=== PATIENT | female | born 1950 | race Caucasian/White ===

== ENCOUNTER → 2016-08-12 | Outpatient (CLI) | payer OTHER, MEDICARE ==
--- NOTE | 2016-08-12 13:04 | MR ---
MRI of the Lumbar Spine (Without Contrast) Clinical Indications: Low back pain in a 66-year-old female with history of previous lumbar spinal abraham rgery. No previous studies are available for comparison. Technique: Sagittal and axial T1 and T2 MR sequences of the lumbar spine are performed without con trast. A sagittal STIR sequence was also obtained. Findings: There is straightening of the normal lumbar lordosis. Additionally, a moderate thoracolumb ar scoliotic curvature convex towards the right is estimated at 26 degrees. There is interbody fusion from L2 to L5. Rods and pedicle screws are positioned from L2 to L5. There has been a decompressive laminectomy posteriorly. Conus medullaris appears normal and ends at T12-L1. L1-L2: A diffuse disk bulge occurs in association with facet and ligamentous hypertrophy resulting in a central canal at the lower limits of normal in size. There is bilateral lateral recess stenosis. N eural foramina are difficult to evaluate secondary to artifact related to the pedicle screws. L2-L3 to L4-L5: Interbody fusion is seen. There is extensive decompressive laminectomy posteriorly. T he resulting canal is generous in size with no stenosis seen. No definite neural foraminal impingemen t is identified. L5-S1: A diffuse disk bulge is seen eccentric towards the right side where there may be an element of lateral protrusion. Hypertrophic facet changes are seen bilaterally and an element of neural foramin al impingement is suspected bilaterally. Right lateral recess stenosis is also suspected. Impression: 1. Lateral recess stenosis as well as right greater than left neural foraminal impingement suspected at L5-S1. Comparison with previous studies would be of value to assess for interval change. 2. Postoperative changes and posterior laminectomy with widely patent lumbar canal at the postoperati ve levels. 3. Diffuse disk bulge and bilateral lateral recess stenosis at L1-L2.
== END ==
LOC: FIMAGING 10:41
PROVIDERS: ATTEND Physical Medicine & Rehabilitation
DX: M48.06 Spinal stenosis, lumbar region (principal); M51.86 Other intervertebral disc disorders, lumbar region

== ENCOUNTER 2016-11-16 09:00 | Inpatient (IN) | payer OTHER, MEDICARE ==
--- NOTE | 2016-11-16 09:01 | EDPHY ---
H & P HPI/ROS: CHIEF COMPLAINT: Shortness of breath, abdominal pain. HISTORY OF PRESENT ILLNESS: The patient is a 66-year-old female with a history of asthma who arrives via EMS on CPAP with acute shortness of breath, back pain , and abdominal pain. She vomited earlier. She flew back from [place] yesterday. History limited. REVIEW OF SYSTEMS: Unobtainable due to patient's clinical condition. Source: Patient, EMS Exam Limitations: Clinical condition - Medical/Surgical History Other PMH: Asthma, spinal fusion, chronic back pain, GERD. - Social History Additional Social History: . - Physical Exam Exam: General Appearance: Heart rate 152, systolic blood pressure 80/9, respiratory rate 36, temperature 38.2. She is on CPAP. She appears severely ill and in distress. Eyes: Pupils equal and round, no conjunctival injection, anicteric. ENT, Mouth: Mucous membranes are dry, no oropharyngeal erythema or edema. Neck: No lymphadenopathy, supple. Trachea midline. Respiratory: No wheezes. Crackles at both bases. Cardiovascular: Tachycardic. Gastrointestinal: Abdomen is distended and diffusely tender. Skin: Skin is mottled throughout. Skin is cool. Pulses: Palpable radial, femoral, and dorsalis pedis pulses. Back: Nontender to palpation over the thoracolumbar spine. Extremities: Bilateral lower extremity edema. Neurological: She is awake and answering simple questions, albeit slowly. She will follow simple commands. Pupils are equal and round. Extraocular movements are conjugate. Facial expressions appear symmetric. Tongue is midline. Psychiatric: Normal affect. Constitutional: Initial Vital Signs Temperature (C) 38.2 C 11/16/16 09:11 Heart Rate 152 H 11/16/16 09:11 Respiratory Rate 32 H 11/16/16 09:11 Blood Pressure 89/76 L 11/16/16 09:11 O2 Delivery Mode Ventilator Allergies/Adverse Reactions: Penicillins Allergy (Verified 11/16/16 09:09) Home Medications: Medication Instructions Recorded Atorvastatin Calcium 11/16/16 Celecoxib 11/16/16 Cyclobenzaprine 11/16/16 FOLIC ACID 11/16/16 Hydrocodone Bit/Acetaminophen 11/16/16 Leucovorin 11/16/16 Prednisone 11/16/16 Xopenex 11/16/16 Zolpidem Tartrate 11/16/16 Medical Decision Making - Diagnostics Imaging Results: Imaging Impressions Abdomen X-Ray 11/16/16 09:18 Impression: 1. Suspect pneumoperitoneum. 2. Query mild adynamic ileus. Comment: The case was discussed with Dr. Arreola. Chest X-Ray 11/16/16 09:18 Impression: 1. Pneumoperitoneum. 2. Hypoventilation and bibasilar atelectasis, worse left than right. Comment: The case was discussed with Dr. Arreola and Dr. Newsome shortly after study completion. Abdomen/Pelvis CT 11/16/16 09:34 Impression: 1. Extensive free intraperitoneal air and fluid compatible with bowel perforation, of unclear origin. Two possible sites include the distal ileum, which is mildly thickened, and proximal jejunum, which is less prominently thickened. 2. Small bilateral pleural effusions with extensive atelectasis. 3. Patchy consolidation bilaterally, which could be related to pulmonary edema, atelectasis, or inflammation/infection. Attention is recommended on follow up radiographs. 4. Severe spinal canal narrowing with possible cord compression at T11-T12. 5. Additional findings as above. Note: The study is limited by the lack of IV contrast, particularly assessment of the solid organs. Findings discussed with Lars Arreola M.D. on November 16, [address] 11/16/16 09:34 Impression: 1. Extensive free intraperitoneal air and fluid compatible with bowel perforation, of unclear origin. Two possible sites include the distal ileum, which is mildly thickened, and proximal jejunum, which is less prominently thickened. 2. Small bilateral pleural effusions with extensive atelectasis. 3. Patchy consolidation bilaterally, which could be related to pulmonary edema, atelectasis, or inflammation/infection. Attention is recommended on follow up radiographs. 4. Severe spinal canal narrowing with possible cord compression at T11-T12. 5. Additional findings as above. Note: The study is limited by the lack of IV contrast, particularly assessment of the solid organs. Findings discussed with Lars Arreola M.D. on November 16, 2016 at 1000 hours. Procedures: Procedure: Rapid sequence intubation. Indication for the procedure was respiratory failure. The patient was preoxygenated with 100% oxygen by non-rebreather. The patient was given the following IV medications: 30mg IV Rocuronium and 20mg Etomidate. The patient was orally endotracheally intubated under direct visualization with a 7.0 ETT. In line stabilization was performed during the procedure. Tracheal intubation was confirmed with misting on the tube; breath sounds were auscultated equally bilaterally; appropriate color change with [place] [employer] CO2 detector. The procedure was performed by the anesthesiologist. ED Course/Re-evaluation: I met EMS on arrival and obtained a report from the steel division supervisor. Respiratory therapy at bedside. The patient arrives hypotensive at 89/76. Tachycardic at 156. She is complaining of acute shortness of breath, back pain, and diffuse abdominal pain. She is on CPAP on arrival. Her abdomen is notably distended. Two IVs were established. ISTAT obtained. Stat chest x-ray and abdominal flat plate ordered. IV fluids administered. My initial concern was for aortic dissection, either thoracic or intra- abdominal. This did not appear to be a primary respiratory issue. She has a history of asthma but there was no wheezing. She was on CPAP on arrival but this was discontinued and she continued with adequate oxygenation; she remained tachypneic. She had bilateral crackles at the bases and pneumonia was in the differential. I-STAT shows potassium of 6, BUN 67, creatinine 2. Hemoglobin and hematocrit are not decreased. Her hemoglobin and hematocrit make bleeding/ aortic dissection less likely. 0905: I performed a bedside FAST ultrasound but had some difficulty with visualization of intra-abdominal organs. I did not see right atrial enlargement or obvious evidence of PE. 0912: Consulted with Dr. Arreola, surgery. 0913: Portable chest x-ray taken and independently reviewed by me on the portable x-ray machine. There is free air under the right hemidiaphragm. I spoke to the on-call radiologist Dr. Barcenas. He concurs with the impression of free air. 0916: Dr. Arreola, surgery, at bedside evaluating patient. He will take the patient to the operating room when she is stabilized. Blood pressure 87/62 at this time. IV Levophed administered. Anesthesia at the bedside. Labs reviewed. Arterial blood gases been obtained. She is noted to be acidotic with a pH of 7.2. 0931: The anesthesiologist intubated the patient at this time (see procedure note for details). Blood pressure 63/37. Levophed increased. Domínguez catheter placed. Domínguez catheter placed. 0936: Dr. Arreola, surgery, placed central line. Blood pressure 101/78. Levophed infusion continues. Patient taken to CT for chest/abdomen imaging. IV contrast will not be used because of her elevated creatinine. She will be taken from CT to the operating room. Following intubation, with improvement in her blood pressure, she is noted to have less skin mottling. Throughout the resuscitation she has had palpable radial and femoral pulses. 1032: Consulted with Radiology concerning the patient's CT scan results. Critical Care Time: I, Dr. Allegra Newsome, personally spent a total of 45 minutes of critical care time including time spent obtaining a history, performing a physical exam, monitoring interventions, collecting and interpreting tests and in discussion with consultants. This does not include time spent performing procedures or physician instructional assistant time. - Data Points Laboratory Results: Laboratory Results 11/16/16 09:30 11/16/16 11:13 11/16/16 11/16/16 11/16/16 11:13 10:00 09:30 WBC 14.96 10^3/uL H 10^3/uL (3.80-9.50) RBC 4.90 10^6/uL 10^6/uL (4.18-5.33) Hgb 15.5 g/dL g/dL (12.6-16.3) POC Hgb Hct 46.5 % % (38.0-47.0) POC Hct MCV 94.9 fL fL (81.5-99.8) MCH 31.6 pg pg (27.9-34.1) MCHC 33.3 g/dL g/dL (32.4-36.7) RDW 16.6 % H % (11.5-15.2) Plt Count 248 10^3/uL 10^3/uL (150-400) MPV 12.1 fL H fL (8.7-11.7) Neut % (Auto) Not Reported Lymph % (Auto) Not Reported [place] % (Auto) Not Reported Eos % (Auto) Not Reported Baso % (Auto) Not Reported Nucleat RBC Rel Count 0.7 % H % (0.0-0.2) Absolute Neuts (auto) Not Reported Absolute Lymphs (auto) Not Reported Absolute Monos (auto) Not Reported Absolute Eos (auto) Not Reported Absolute Basos (auto) Not Reported Absolute Nucleated RBC 0.10 10^3/uL H 10^3/uL (0-0.01) Immature Gran % Not Reported Seg Neutrophils % 62 % % Band Neutrophils % 32 % % Lymphocytes % 2 % % Metamyelocytes % 3 % % Myelocytes % 1 % % Immature Gran # Not Reported Absolute Seg Neuts 9.28 10^/uL H 10^/uL (1.70-6.50) Absolute Band Neuts 4.79 10^3/uL H 10^3/uL (0.00-0.70) Absolute Lymphocytes 0.30 10^3/uL L 10^3/uL (1.00-3.00) Absolute Metamyelocyte 0.45 10^3/mL H 10^3/mL (0.00-0.00) Absolute Myelocytes 0.15 10^3/mL H 10^3/mL (0.00-0.00) Toxic Granulation PRESENT H Platelet Estimate ADEQUATE (ADEQ) Large Platelets PRESENT H Smear Review By Pending PT INR Puncture Site Patient Temperature pCO2 pO2 Total CO2 ABG pH ABG O2 Saturation ABG Base Excess POC Sodium Sodium 143 mEq/L mEq/L (134-144) POC Potassium Potassium 4.4 mEq/L mEq/L (3.5-5.2) POC Chloride Chloride 114 mEq/L H D mEq/L (97-110) Carbon Dioxide 17 mEq/l L mEq/l (22-31) Bicarbonate Anion Gap 12 mEq/L mEq/L (8-16) POC BUN BUN 52 mg/dL H mg/dL (7-23) Creatinine 1.5 mg/dL H mg/dL (0.6-1.0) POC Creatinine Estimated GFR 35 Glucose 81 mg/dL mg/dL (70-100) POC Glucose Calcium 8.4 mg/dL L mg/dL (8.5-10.4) Total Bilirubin 1.0 mg/dL mg/dL (0.1-1.4) Conjugated Bilirubin Unconjugated Bilirubin AST 42 IU/L IU/L (14-46) ALT 61 IU/L H IU/L (9-52) Alkaline Phosphatase 46 IU/L IU/L (38-126) Total Protein 3.5 g/dL L g/dL (6.3-8.2) Albumin 2.2 g/dL L g/dL (3.5-5.0) Lipase Urine Color MAGO Urine Appearance MODERATELY TURBID Urine pH 5.0 (5.0-7.5) Ur Specific [place] 1.026 (1.002-1.030) Urine Protein 1+ H (NEGATIVE) Urine Ketones NEGATIVE (NEGATIVE) Urine Blood NEGATIVE (NEGATIVE) Urine Nitrate NEGATIVE (NEGATIVE) Urine Bilirubin NEGATIVE (NEGATIVE) Urine Urobilinogen 2.0 EU H EU (0.2-1.0) Ur Leukocyte Esterase NEGATIVE (NEGATIVE) Urine RBC 3-5 /hpf H /hpf (0-3) Urine WBC 3-5 /hpf H /hpf (0-3) Ur Epithelial Cells TRACE /lpf /lpf (NONE-1+) Urine Bacteria TRACE /hpf H /hpf (NONE SEEN) Hyaline Casts 25-50 /lpf H /lpf (0-1) Granular Casts 1-5 /lpf /lpf (0-1) Urine Mucus 1+ /lpf /lpf (NONE-1+) Urine Glucose NEGATIVE (NEGATIVE) Patient ABO/Rh Antibody Screen 11/16/16 11/16/16 11/16/16 09:19 09:19 09:19 WBC RBC Hgb POC Hgb Hct POC Hct MCV MCH MCHC RDW Plt Count MPV Neut % (Auto) Lymph % (Auto) [place] % (Auto) Eos % (Auto) Baso % (Auto) Nucleat RBC Rel Count Absolute Neuts (auto) Absolute Lymphs (auto) Absolute Monos (auto) Absolute Eos (auto) Absolute Basos (auto) Absolute Nucleated RBC Immature Gran % Seg Neutrophils % Band Neutrophils % Lymphocytes % Metamyelocytes % Myelocytes % Immature Gran # Absolute Seg Neuts Absolute Band Neuts Absolute Lymphocytes Absolute Metamyelocyte Absolute Myelocytes Toxic Granulation Platelet Estimate Large Platelets Smear Review By PT 14.8 SEC SEC (12.0-15.0) INR 1.16 (0.83-1.16) Puncture Site Patient Temperature pCO2 pO2 Total CO2 ABG pH ABG O2 Saturation ABG Base Excess POC Sodium Sodium POC Potassium Potassium POC Chloride Chloride Carbon Dioxide Bicarbonate Anion Gap POC BUN BUN Creatinine POC Creatinine Estimated GFR Glucose POC Glucose Calcium Total Bilirubin 1.4 mg/dL mg/dL (0.1-1.4) Conjugated Bilirubin 0.8 mg/dL H mg/dL (0.0-0.5) Unconjugated Bilirubin 0.6 mg/dL mg/dL (0.0-1.1) AST 80 IU/L H IU/L (14-46) ALT 116 IU/L H IU/L (9-52) Alkaline Phosphatase 141 IU/L H IU/L (38-126) Total Protein 4.3 g/dL L g/dL (6.3-8.2) Albumin 2.3 g/dL L g/dL (3.5-5.0) Lipase 16.0 IU/L L IU/L (23-300) Urine Color Urine Appearance Urine pH Ur Specific [place] Urine Protein Urine Ketones Urine Blood Urine Nitrate Urine Bilirubin Urine Urobilinogen Ur Leukocyte Esterase Urine RBC Urine WBC Ur Epithelial Cells Urine Bacteria Hyaline Casts Granular Casts Urine Mucus Urine Glucose Patient ABO/Rh A POSITIVE Antibody Screen NEGATIVE 11/16/16 11/16/16 11/16/16 09:19 09:15 09:03 WBC RBC Hgb POC Hgb 16.7 gm/dL H gm/dL (12.3-15.9) Hct POC Hct 49 % H % (35.5-47.5) MCV MCH MCHC RDW Plt Count MPV Neut % (Auto) Lymph % (Auto) [place] % (Auto) Eos % (Auto) Baso % (Auto) Nucleat RBC Rel Count Absolute Neuts (auto) Absolute Lymphs (auto) Absolute Monos (auto) Absolute Eos (auto) Absolute Basos (auto) Absolute Nucleated RBC Immature Gran % Seg Neutrophils % Band Neutrophils % Lymphocytes % Metamyelocytes % Myelocytes % Immature Gran # Absolute Seg Neuts Absolute Band Neuts Absolute Lymphocytes Absolute Metamyelocyte Absolute Myelocytes Toxic Granulation Platelet Estimate Large Platelets Smear Review By PT INR Puncture Site LEFT RADIAL Patient Temperature 38.2 DEGREES DEGREES pCO2 26 mmHg L mmHg (34-38) pO2 103 mmHg H mmHg (65-75) Total CO2 13 mEq/L L mEq/L (23-27) ABG pH 7.29 L (7.35-7.45) ABG O2 Saturation 95 % % (92-95) ABG Base Excess -12.5 mEq/L L mEq/L (-2.5-2.5) POC Sodium 138 mEq/L mEq/L (134-144) Sodium 136 mEq/L mEq/L (134-144) POC Potassium 6.0 mEq/L H mEq/L (3.3-5.0) Potassium 6.1 mEq/L H mEq/L (3.5-5.2) POC Chloride 105 mEq/L mEq/L (96-108) Chloride 103 mEq/L mEq/L (97-110) Carbon Dioxide 18 mEq/l L mEq/l (22-31) Bicarbonate 12 mEq/L L mEq/L (22-26) Anion Gap 15 mEq/L mEq/L (8-16) POC BUN 67 mg/dL H mg/dL (7-23) BUN 66 mg/dL H mg/dL (7-23) Creatinine 1.9 mg/dL H mg/dL (0.6-1.0) POC Creatinine 2.0 mg/dL H mg/dL (0.6-1.2) Estimated GFR 26 Glucose 148 mg/dL H mg/dL (70-100) POC Glucose 161 mg/dL H mg/dL (70-100) Calcium 8.9 mg/dL mg/dL (8.5-10.4) Total Bilirubin Conjugated Bilirubin Unconjugated Bilirubin AST ALT Alkaline Phosphatase Total Protein Albumin Lipase Urine Color Urine Appearance Urine pH Ur Specific [place] Urine Protein Urine Ketones Urine Blood Urine Nitrate Urine Bilirubin Urine Urobilinogen Ur Leukocyte Esterase Urine RBC Urine WBC Ur Epithelial Cells Urine Bacteria Hyaline Casts Granular Casts Urine Mucus Urine Glucose Patient ABO/Rh Antibody Screen Microbiology Results: MICROBIOLOGY 11/16/16 10:13 Peritoneal Fluid - Eswab Gram Stain - Final 11/16/16 10:13 Peritoneal Fluid - Eswab Mycobacterial Smear (TANIA) - Final 11/16/16 10:13 Peritoneal Fluid - Eswab Mycobacterial Culture - Final Medications Given: Discontinued Medications Etomidate (Etomidate) 20 mg IVP EDNOW ONE Stop: 11/16/16 10:00 Last Admin: 11/16/16 09:31 Dose: 20 mg Fentanyl (Sublimaze) 100 mcg IVP ONCE ONE Stop: 11/16/16 10:05 Last Admin: 11/16/16 10:24 Dose: Not Given Sodium Chloride (Ns) 1,000 mls @ 0 mls/hr IV ONCE ONE PRN Reason: Wide Open Stop: 11/16/16 10:00 Last Admin: 11/16/16 09:59 Dose: 1,000 mls Sodium Chloride (Ns) 1,000 mls @ 0 mls/hr IV ONCE ONE PRN Reason: Wide Open Stop: 11/16/16 10:01 Last Admin: 11/16/16 10:00 Dose: 1,000 mls Norepinephrine 4 mg/ Dextrose 500 mls @ 0 mls/hr IV CONT TYREE; Titrate PRN Reason: Protocol Stop: 05/15/17 10:29 Last Admin: 11/16/16 09:50 Dose: 500 mls Clindamycin Phosphate/Dextrose (Cleocin 900 Mg (Premix)) 50 mls @ 100 mls/hr IV ONCE ONE Stop: 11/16/16 10:59 Last Admin: 11/16/16 14:22 Dose: Not Given Sodium Chloride (Ns) 1,000 mls @ 0 mls/hr IV ONCE ONE PRN Reason: Wide Open Stop: 11/16/16 14:31 Last Admin: 11/16/16 14:16 Dose: 1,000 mls Lorazepam (Ativan Injection) 0.5 mg IVP EDNOW ONE Stop: 11/16/16 10:05 Last Admin: 11/16/16 10:26 Dose: Not Given Lorazepam (Ativan Injection) 2 mg IVP EDNOW ONE Stop: 11/16/16 10:16 Last Admin: 11/16/16 10:15 Dose: 2 mg Rocuronium [place] (Zemuron) 30 mg IVP EDNOW ONE Stop: 11/16/16 10:00 Last Admin: 11/16/16 09:32 Dose: 30 mg Point of Care Test Results: 11/16/16 09:03 POC Sodium 138 POC Potassium 6.0 H POC Chloride 105 POC BUN 67 H POC Creatinine 2.0 H POC Glucose 161 H Departure - Departure Disposition: [facility] Acute Clinical Impression: Perforated abdominal viscus Condition: Critical Report Scribed for: Allegra Newsome Report Scribed by: Reinier Dunlap Date of Report: 11/16/16 Time of Report: 08:54
[2016-11-16] MEDS ORDERED: NOREPINEPHRINE/NS 4 MG/500 ML BAG IV ONE (09:22)
[2016-11-16] MEDS ORDERED: IOPAMIDOL (ISOVUE-300) 100 ML BTL IV ONE (09:24)
[2016-11-16] MEDS ORDERED: epHEDrine SULFATE 10 MG/ML SYR ONE (09:24)
[2016-11-16 09:25] LABS: BASE EXCESS -12.5 mEq/L (-2.5-2.5); BICARBONATE 12 mEq/L (22-26); MEASURED OXYGEN SATURATION 95 % (92-95); PCO2 26 mmHg (34-38); PO2 103 mmHg (65-75); TCO2 13 mEq/L (23-27)
[2016-11-16] MEDS ORDERED: BUPIVACAINE/EPI 0.25% 30 ML SDV ONE (09:30)
[2016-11-16] MEDS ORDERED: ALBUMIN 5% 250 ML BOTTLE IV ONE ×3 (09:34→10:58)
[2016-11-16] MEDS ORDERED: PROPOFOL/EMULSION 1,000 MG/100 ML BOTTLE IV ONE ×2 (09:36→12:49)
[2016-11-16 09:39] LABS: ANION GAP 15 mEq/L (8-16); CALCIUM 8.9 mg/dL (8.5-10.4); CARBON DIOXIDE 18 mEq/l (22-31); CHLORIDE 103 mEq/L (97-110); CREATININE 1.9 mg/dL (0.6-1.0); GLOMERULAR FILTRATION RATE 26; GLUCOSE 148 mg/dL (70-100); POTASSIUM 6.1 mEq/L (3.5-5.2); SODIUM 136 mEq/L (134-144)
[2016-11-16] MEDS ORDERED: LORazepam 2 MG/ML INJ ONE (09:39)
[2016-11-16] MEDS ORDERED: fentaNYL 100 MCG/2 ML INJ ONE (09:39)
[2016-11-16] MEDS ORDERED: DIAZEPAM 10 MG/2 ML SYR ONE (09:49)
[2016-11-16 09:53] LABS: ADD DIFF? YES; ADD MORPH? NO; ATYPICAL LYMPHOCYTE FLAG 0 (0-99); FRAGMENT RBC FLAG 0 (0-99); HEMATOCRIT 46.5 % (38.0-47.0); HEMOGLOBIN 15.5 g/dL (12.6-16.3); LIPEMIA HEMOLYSIS FLAG 80 (0-99); MEAN CELL HEMOGLOBIN 31.6 pg (27.9-34.1); MEAN CELL HEMOGLOBIN CONCENTR. 33.3 g/dL (32.4-36.7); MEAN CELL VOLUME 94.9 fL (81.5-99.8); MEAN PLATELET VOLUME 12.1 fL (8.7-11.7); NRBC-AUTO% 0.7 % (0.0-0.2); PLATELET CLUMPS FLAG 0 (0-99); PLATELET COUNT 248 10^3/uL (150-400); RED CELL DISTRIBUTION WIDTH 16.6 % (11.5-15.2)
[2016-11-16] MEDS ORDERED: NS 1,000 ML IV ONE ×2 (09:59→10:00)
[2016-11-16] MEDS ORDERED: ETOMIDATE 20 MG/10 ML VIAL IVP ONE (09:59)
[2016-11-16] MEDS ORDERED: ROCURONIUM 100 MG/10 ML VIAL IVP ONE (09:59)
[2016-11-16] MEDS ORDERED: LORazepam 2 MG/ML INJ IVP ONE ×2 (10:04→10:15)
[2016-11-16] MEDS ORDERED: fentaNYL 100 MCG/2 ML INJ IVP ONE (10:04)
[2016-11-16 10:09] LABS: ADD SCAN? NO; LEFT SHIFT FLG 300 (0-99)
[2016-11-16 10:12] LABS: INR 1.16 (0.83-1.16); PROTIME(PATIENT) 14.8 SEC (12.0-15.0)
[2016-11-16] MEDS ORDERED: ETOMIDATE 40 MG/20 ML INJ ONE (10:12)
[2016-11-16] MEDS ORDERED: NA BICARBONATE 50 MEQ/50 ML VIAL ONE (10:14)
[2016-11-16 10:16] LABS: ALBUMIN 2.3 g/dL (3.5-5.0); BILIRUBIN,TOTAL 1.4 mg/dL (0.1-1.4); BILIRUBIN-CONJUGATED 0.8 mg/dL (0.0-0.5); BILIRUBIN-UNCONJUGATED 0.6 mg/dL (0.0-1.1); TOTAL PROTEIN 4.3 g/dL (6.3-8.2)
[2016-11-16] MEDS ORDERED: BACITRACIN 50,000 UNITS/10 ML SYR IRR ONE (10:29)
[2016-11-16] MEDS ORDERED: POLYMYXIN B SULFATE 500,000 UNIT/10 ML SYR IRR ONE (10:29)
[2016-11-16] MEDS ORDERED: NOREPINEPHRINE BITARTRATE 4 MG in D5W 500 ML IV SCH (10:30)
[2016-11-16] MEDS ORDERED: CLINDAMYCIN 900 MG/DEXTROSE 50 ML IV ONE (10:30)
[2016-11-16 10:34] LABS: COLOR AMBER; LEUKOCYTE ESTERASE,URINE NEGATIVE (NEGATIVE); NITRITE,URINE NEGATIVE (NEGATIVE)
[2016-11-16 10:43] LABS: BACTERIA TRACE /hpf (NONE SEEN); HYALINE CASTS 25-50 /lpf (0-1); MUCUS 1+ /lpf (NONE-1+)
[2016-11-16 11:02] LABS: TOXIC GRANULATION PRESENT
[2016-11-16 11:03] LABS: LARGE PLATELETS PRESENT; PLATELET ESTIMATE ADEQUATE (ADEQ)
[2016-11-16] MEDS ORDERED: METHYLENE BLUE 0.5% 50 MG/10 ML AMP ONE (11:03)
[2016-11-16] MEDS ORDERED: CALCIUM CHLORIDE 1 GM/10 ML INJ ONE ×2 (11:24→11:50)
[2016-11-16] MEDS ORDERED: PHENYLEPHRINE HCL 100 MCG/ML SYR ONE (11:24)
[2016-11-16] MEDS ORDERED: SODIUM BICARBONATE 50 MEQ/50 ML SYR ONE (11:24)
[2016-11-16] MEDS ORDERED: PHENYLEPHRINE 10 MG/ML SDV ONE (11:24)
[2016-11-16] MEDS ORDERED: ROCURONIUM 50 MG/5 ML VIAL ONE (11:24)
[2016-11-16] MEDS ORDERED: fentaNYL 250 MCG/5 ML INJ ONE (11:41)
[2016-11-16] MEDS ORDERED: VASOPRESSIN 20 UNIT/ML VIAL ONE (11:41)
[2016-11-16 11:47] LABS: ALANINE AMINOTRANSFERASE 61 IU/L (9-52); ALBUMIN 2.2 g/dL (3.5-5.0); ALKALINE PHOSPHATASE 46 IU/L (38-126); ANION GAP 12 mEq/L (8-16); ASPARTATE AMINOTRANSFERASE 42 IU/L (14-46); CALCIUM 8.4 mg/dL (8.5-10.4); CARBON DIOXIDE 17 mEq/l (22-31); CHLORIDE 114 mEq/L (97-110); CREATININE 1.5 mg/dL (0.6-1.0); GLOMERULAR FILTRATION RATE 35; GLUCOSE 81 mg/dL (70-100); POTASSIUM 4.4 mEq/L (3.5-5.2); SODIUM 143 mEq/L (134-144); TOTAL PROTEIN 3.5 g/dL (6.3-8.2)
[2016-11-16] MEDS ORDERED: NALOXONE HCL 0.4 MG/ML INJ IVP PRN (11:53)
[2016-11-16] MEDS ORDERED: VASOPRESSIN/DEXTROSE 250 ML IV SCH (12:30)
[2016-11-16] MEDS ORDERED: NOREPINEPHRINE/NS 500 ML IV SCH (12:30)
[2016-11-16] MEDS ORDERED: fentanYL/NACL/100 ML BAG IV ONE (12:50)
[2016-11-16] MEDS: NOREPINEPHRINE/NS 500 ML IV SCH ×2 (13:08→16:47)
[2016-11-16] MEDS: HYDROCORTISONE 100 MG/2 ML VIAL IVP SCH ×2 (13:08→21:00)
[2016-11-16] MEDS: fentaNYL/NACL 100 ML IV SCH ×2 (13:08→22:36)
[2016-11-16] MEDS: PANTOPRAZOLE SODIUM 40 MG in NS 100 ML IV SCH ×2 (13:08→21:00)
[2016-11-16] MEDS: PROPOFOL/EMULSION 100 ML IV SCH (13:08)
[2016-11-16 13:09] LABS: BASE EXCESS -11.8 mEq/L (-2.5-2.5); BICARBONATE 15 mEq/L (22-26); MEASURED OXYGEN SATURATION 89 % (92-95); PCO2 37 mmHg (34-38); PO2 74 mmHg (65-75); TCO2 16 mEq/L (23-27)
[2016-11-16] MEDS: NS 1,000 ML IV SCH (13:09)
[2016-11-16 13:10] LABS: ABSOLUTE NRBC COUNT 0.08 10^3/uL (0-0.01); ADD DIFF? YES; ADD MORPH? NO; ADD SCAN? YES; ATYPICAL LYMPHOCYTE FLAG 0 (0-99); FRAGMENT RBC FLAG 0 (0-99); HEMATOCRIT 35.5 % (38.0-47.0); LIPEMIA HEMOLYSIS FLAG 90 (0-99); MEAN CELL HEMOGLOBIN 32.2 pg (27.9-34.1); MEAN CELL HEMOGLOBIN CONCENTR. 33.8 g/dL (32.4-36.7); MEAN CELL VOLUME 95.2 fL (81.5-99.8); MEAN PLATELET VOLUME 11.7 fL (8.7-11.7); NRBC-AUTO% 0.9 % (0.0-0.2); PLATELET CLUMPS FLAG 0 (0-99); PLATELET COUNT 157 10^3/uL (150-400); RED BLOOD CELL COUNT 3.73 10^6/uL (4.18-5.33); RED CELL DISTRIBUTION WIDTH 16.5 % (11.5-15.2)
[2016-11-16] MEDS: VASOPRESSIN/DEXTROSE 250 ML IV SCH ×2 (13:10→23:43)
[2016-11-16 13:11] LABS: ASSIST CONTROL YES; O2 CONCENTRATIION 50 % (0-100); P/F RATIO 148 RATIO
[2016-11-16 13:12] LABS: END TIDAL CO2 36; TOTAL RATE 24
[2016-11-16 13:16] LABS: LEFT SHIFT FLG 300 (0-99)
[2016-11-16] MEDS: MEROPENEM 1 GM in NS 100 ML IV SCH ×2 (13:16→20:59)
[2016-11-16 13:30] LABS: INR 1.72 (0.83-1.16); PROTIME(PATIENT) 20.2 SEC (12.0-15.0)
[2016-11-16 13:31] LABS: APTT 42.5 SEC (23.0-38.0)
[2016-11-16 13:46] LABS: ALANINE AMINOTRANSFERASE 83 IU/L (9-52); ALKALINE PHOSPHATASE 47 IU/L (38-126); ANION GAP 11 mEq/L (8-16); ASPARTATE AMINOTRANSFERASE 72 IU/L (14-46); BILIRUBIN,TOTAL 1.9 mg/dL (0.1-1.4); CALCIUM 9.7 mg/dL (8.5-10.4); CARBON DIOXIDE 17 mEq/l (22-31); CHLORIDE 114 mEq/L (97-110); CREATININE 1.5 mg/dL (0.6-1.0); GLOMERULAR FILTRATION RATE 35; GLUCOSE 89 mg/dL (70-100); POTASSIUM 5.1 mEq/L (3.5-5.2); SODIUM 142 mEq/L (134-144); TOTAL PROTEIN 3.4 g/dL (6.3-8.2)
[2016-11-16 13:57] LABS: ECHINOCYTES 1+; LARGE PLATELETS PRESENT; PLATELET ESTIMATE ADEQUATE (ADEQ); TOXIC GRANULATION PRESENT
[2016-11-16] MEDS ORDERED: MEROPENEM 1 GM in NS 100 ML IV SCH (14:00)
[2016-11-16] MEDS ORDERED: VANCOMYCIN 1.5 GM in D5W 250 ML IV ONE (14:14)
[2016-11-16] MEDS ORDERED: FAMOTIDINE 20 MG/NACL 50 ML IV SCH ×3 (14:30→21:00)
[2016-11-16] MEDS ORDERED: NS BOLUS 1000 ML (Wide open) IV ONE ×2 (14:30→16:00)
[2016-11-16 14:37] LABS: BASE EXCESS -0.1 mEq/L (-2.5-2.5); BICARBONATE 25 mEq/L (22-26); MEASURED OXYGEN SATURATION 98 % (92-95); PCO2 45 mmHg (34-38); PO2 122 mmHg (65-75); TCO2 26 mEq/L (23-27)
[2016-11-16 14:38] LABS: ASSIST CONTROL YES; O2 CONCENTRATIION 100 % (0-100); P/F RATIO 122 RATIO; TOTAL RATE 22
[2016-11-16 15:22] LABS: BASE EXCESS -10.9 mEq/L (-2.5-2.5); BICARBONATE 14 mEq/L (22-26); MEASURED OXYGEN SATURATION 91 % (92-95); PCO2 31 mmHg (34-38); PO2 72 mmHg (65-75); TCO2 15 mEq/L (23-27)
[2016-11-16 15:23] LABS: END TIDAL CO2 28
[2016-11-16 15:24] LABS: O2 CONCENTRATIION 50 % (0-100); P/F RATIO 144 RATIO; TOTAL RATE 30
--- NOTE | 2016-11-16 15:32 | GCON ---
[f rep st] CONSULTATION INFECTIOUS DISEASE CONSULTATION DATE OF CONSULTATION: 11/16/2016 REFERRING PHYSICIAN: Lars Arreola MD REASON FOR CONSULTATION: Septic shock with peritonitis. HISTORY OF PRESENT ILLNESS: The patient is a 66-year-old female with a past medical history of rheu matoid arthritis, on chronic prednisone as well as biologic therapy, in addition, a prior history of diverticulitis, whom I am asked to see in consultation for septic shock with associated peritonitis . The patient recently was visiting [facility], the [facility], and [place], at which point in time her describes that her abdomen had become progressively more distended. Over the last several days, she complained abdominal pain as well. She did have some associated nausea and some vomiting upon returning from [place] yesterday evening. Her does note that he was using a wh eelchair to transport her during the latter part of her stay due to increasing weakness. Overnight, she was also noted to have fever and chills. Her notes that she also had diarrhea in the l ast 24 hours. Based on those findings, she was brought to emergency department for further evaluati on, where she was noted to have hypotension with associated respiratory failure requiring intubation . Further evaluation included a CT scan of the abdomen and pelvis, which showed extensive free intr aperitoneal air and fluid with possible thickening of the distal ilium and proximal jejunum. The pa tient was found to have associated acidosis. She was taken emergently for exploratory laparotomy, w here she was found to have gross intra-abdominal purulence but no feculent-appearing material. Valeriy l perforation could not be identified with extensive evaluation. The abdomen was washed out and lef t open with anticipated return to the OR over time to reassess for etiology of peritonitis. Patient was given a dose of clindamycin as she has an underlying penicillin allergy. Postoperatively, she has been transferred to the ICU, where she is receiving volume resuscitation and pressors for blood pressure support. She has also been started on stress dose corticosteroids. The patient's does not note any unusual dietary intake while traveling. Given the above findings, I am now asked to assist in her ongoing management. PAST MEDICAL HISTORY: Rheumatoid arthritis, on chronic prednisone, which recently had been at 30 mg per day and had been increased in tapering fashion during her travels for increasing pain; she also is described as receiving a biologic infusion regularly, although her is unclear on the exa ct agent; diverticulitis; chronic back pain; asthma. PAST SURGICAL HISTORY: Spinal surgery requiring fixation, right hip replacement, ankle fusion. CURRENT MEDICATIONS: Clindamycin 900 mg IV once, Lovenox 40 mg subcu daily, Pepcid 20 mg IV q.12 ho urs, fentanyl drip, hydrocortisone 50 mg IV q.8 hours, Protonix 40 mg IV b.i.d., Propofol drip. ALLERGIES: Penicillin with unclear reaction. SOCIAL HISTORY: Patient does not smoke. She drinks 1 alcoholic beverage daily. No drug use histor y. Recent travel as outlined above. Pet dogs and horse at home. FAMILY HISTORY: Unremarkable; does not note any other rheumatologic disease. REVIEW OF SYSTEMS: Outside that noted in the HPI, remainder of 10-system review is unobtainable. PHYSICAL EXAMINATION: VITAL SIGNS: Temperature maximum 38.2, heart rate 111, respiratory rate 30, blood pressure 111/56, oxygen saturation 94%. GENERAL: Patient is an obese female, who is intubate d and sedated. HEENT: There is no scleral icterus or conjunctival petechiae. There is mild bilate ral conjunctival injection. Endotracheal tube is in place. NECK: Supple without lymphadenopathy o r palpable thyromegaly. CHEST: Clear to auscultation anterolaterally. The respiratory effort is i ncreased. CARDIOVASCULAR: Tachycardic without murmurs, gallops, or rubs. ABDOMEN: Distended with wound VAC in place medially; there is no surrounding erythema; there is no purulent or feculent dis charge via the wound VAC canister. Bowel sounds are absent. MUSCULOSKELETAL: The distal extremiti es are cool to palpation bilaterally. There is no edema present. There is no erythema over the rig ht hip. NEUROLOGIC: Patient is intubated and sedated. LYMPHATICS: There are no cervical, supracl avicular, or inguinal nodes palpable. SKIN: No stigmata of endocarditis. There is some scattered mottling of the extremities bilaterally. LABORATORY DATA: White blood cell count 14.9, hematocrit 46.5, platelets 248, neutrophils 62%, band s 32%. Serum creatinine is 1.5, bicarb 17. Albumin 2.0, bilirubin 1.9, AST 72, ALT 83, alkaline ph osphatase 47. INR is 1.7. ABG shows pH 7.2, PO2 of 74, pCO2 of 37, lactic acid of 6.1. Urinalysis shows 3-5 white blood cells and 3-[address] scan of the abdomen and pelvis as outlined in History of Present Illness; this is reviewed and interpreted by me today. Gram stain of the per itoneal purulence shows 1+ white blood cells, 3+ gram-positive cocci, and 2+ gram-negative rods. Fu ngal culture is pending. Blood cultures x2 are pending. IMPRESSION: Septic shock due to peritonitis with gross intraperitoneal purulence: Findings consist ent with bowel etiology, although no perforation could be defined at time of operative drainage. Maxine donato does have a prior history of diverticulitis, although CT imaging primarily showed edema in the lidya um and jejunum. Plans are in place for a second-look surgery with additional assessment for perfora tion. Gram stain is polymicrobial, consistent with enteric margareth. Gram-positive cocci could repres ent enterococcus or microaerophilic/anaerobic organisms. RECOMMENDATIONS: 1. Meropenem 1 g IV q.12 hours. 2. Vancomycin 1.5 g IV x1 pending further assessment of renal function. 3. Micafungin 100 mg IV q.24 hours. 4. We will see if AFB cultures can be added in the micro lab as these were canceled given use of bi ologic agent, although suspect this will be unlikely. 5. Continued ICU supportive care and therapy of septic shock. 6. Follow blood cultures as available. Thank you for this consultation. We will continue to follow the patient with you. /[id number]/MODL
[2016-11-16] MEDS: MICAFUNGIN NA 100 MG in NS 100 ML IV SCH (15:49)
[2016-11-16 17:40] LABS: SCAN POSITIVE
[2016-11-16 19:36] LABS: MIXED VENOUS O2 SATURATION 68 % (65-75)
--- NOTE | 2016-11-16 20:13 | GCON ---
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 She was becoming more lethargic and having more p ain, subsequently required a wheelchair to move around. She flew home last night and became more le thargic and was brought to the emergency department today where she was found to be highly hypotensi ve and with a clearly distended abdomen. A CT scan was abnormal with fluid collections and air. Maxine donato was taken emergently to the operating room where large amounts of pus was evacuated from her abdom en and there was a presumed perforation, but extensive evaluation involving 2 surgeons was unable to identify the actual site. Her abdominal wound was left open. She was on a ventilator and brought back to the intensive care unit where she remained hypotensive requiring Levophed and vasopressin. In the OR, she received 2 L of normal saline, as well as a liter and a half of albumin, and had mini mal urine output on arrival. REVIEW OF SYSTEMS: According to her , her review of systems is otherwise negative. PAST MEDICAL HISTORY: Includes: 1. Very mild interstitial lung disease. She previously had seen Dr. Otis Mueller in February of 2016 , with mild reticular peripheral infiltrates on a high-resolution CT scan. Pulmonary function tests performed at that time were totally normal, but she did report subjective improvement with bronchod ilator therapy, so he chose to let that continue. 2. Rheumatoid arthritis for which she receives chronic prednisone, as much as 30 mg daily, over the last several years. 3. Chronic pain issues, presumably related to rheumatoid arthritis. 4. Diverticulitis in the past. 5. Coronary artery disease. 6. Hyperlipidemia. 7. Recurrent sinusitis. PAST SURGICAL HISTORY: Includes spine surgery in the past, hip replacement, and ankle surgery. SOCIAL HISTORY: She is a nonsmoker. Drinks very little alcohol. No IV drug use or recreational dr lassiter. FAMILY HISTORY: Unremarkable. CURRENT MEDICATIONS: Include Lovenox, Pepcid, fentanyl, Solu-Cortef, meropenem, micafungin, Levophe d, vasopressin, pantoprazole, propofol. PHYSICAL EXAMINATION: VITAL SIGNS: She had temperature of 37.6, blood pressure was 111/56, with a heart rate of 111, respiratory rate of 30 on a ventilator, on assist control with a rate of 30 and t idal volume of 500, 50% FIO2, and 5 of PEEP. GENERAL: She was a well sedated, obese woman in no ap parent distress, without using accessory muscles for breathing. HEENT: Pupils equally round, react jenniffer to light. Nonicteric and noninjected. Mucous membranes were difficult to examine with the ET t ube. NECK: Supple without adenopathy or jugular vein distention. LUNGS: Breath sounds were clear to auscultation bilaterally without wheezes, rubs or rales. HEART: Regular rate and rhythm withou t murmurs, rubs, or gallops. ABDOMEN: Dressings were clean and dry. Bowel tones were absent. EXT REMITIES: No clubbing, cyanosis, or edema, though her distal extremities were somewhat cold and her knees looked mottled. NEUROLOGIC: Nonfocal. OBJECTIVE DATA: White count of 14.9, hematocrit of 46, platelets of 248. Sodium of 142, potassium of 5.1, chloride of 114, serum bicarb 14, BUN 51, creatinine 1.5. Total bilirubin 1.9, alkaline eloisa sphatase of 47, AST 72, ALT 83, serum albumin of 2, lipase of only 16. Some hyaline casts in her ur ine. Negative leukocyte esterase. Her abdominal CT scan, taken earlier today, shows extensive free intraperitoneal air and fluid and s mall bilateral effusions, patchy consolidation bilaterally. ASSESSMENT/PLAN: 1. Aseptic shock, presumably from peritonitis and a bowel perforation. It is hard to know exactly when this occurred, and it is disconcerting that we were unable to identify the actual site. I disc ussed the case with Dr. Arreola in some detail today, and we will see how things go over the next 24 hours. GI has been consulted as well and may consider other studies to help identify the leak. Infectious Disease is also involved and she is on the sepsis protocol. She is getting adequate ant ibiotics and very broad coverage at this time. We will continue with pressor support, targeting a m olga arterial pressure of 65, using Nikon data, as well as CVP. 2. Respiratory failure due to septic shock. Her oxygenation appears to be relatively stable at thi s time. Her blood gas showed an ongoing acidosis and so I purposefully increased her rate and will monitor subsequent blood gases in anticipation that normalizing her pH might help with her hemodynam ic situation. Her mild interstitial lung disease is very unlikely to be a contributing factor. She had very little infiltrates on a previous CT scan, and her pulmonary function testing was normal in February. There is some discussion of asthma in her, but I do not think that is the case, and she do es not require steroids for this. 3. Rheumatoid arthritis, which does require stress dose steroids, and this is likely playing a role in her ongoing hypotension. She is on Levophed and vasopressin right now and the stress dose stero ids were just recently started. 4. Acute kidney injury. This is quite mild and should improve with IV fluids. With fluid challeng es she has gotten in the intensive care unit, she is already making 40 cc/hour of urine, so I expect that this will normalize fairly quickly. A total of about 60 minutes of critical care time was required in this very ill patient, who has mul tiorgan failure and is quite ill. /[id number]/MODL
[2016-11-16 20:59] LABS: BASE EXCESS -10.4 mEq/L (-2.5-2.5); BICARBONATE 15 mEq/L (22-26); MEASURED OXYGEN SATURATION 93 % (92-95); PCO2 33 mmHg (34-38); PO2 98 mmHg (65-75); TCO2 15 mEq/L (23-27)
[2016-11-16] MEDS: CHLORHEXIDINE GLUCONATE 15 ML UDL PO SCH (20:59)
[2016-11-16 21:00] LABS: ASSIST CONTROL YES; O2 CONCENTRATIION 60 % (0-100); P/F RATIO 163 RATIO
[2016-11-16 21:01] LABS: MIXED VENOUS O2 SATURATION 73 % (65-75)
[2016-11-16 21:01] LABS: END TIDAL CO2 34; TOTAL RATE 30
[2016-11-16] MEDS ORDERED: SODIUM BICARBONATE 150 MEQ in D5W 1,000 ML IV SCH (22:00)
[2016-11-16] MEDS ORDERED: SODIUM BICARBONATE 50 MEQ/50 ML SYR IVP ONE (22:00)
--- NOTE | 2016-11-16 22:13 | GPN ---
[f rep st] PROCEDURE NOTE DATE OF PROCEDURE: 11/16/2016 TOURIST CABIN KEEPER: None. ANESTHESIA: IV local. PREOPERATIVE DIAGNOSIS: Septic shock. POSTOPERATIVE DIAGNOSIS: Septic shock. PROCEDURE PERFORMED: Left subclavian central venous catheter placement. DRAINS: None. SPECIMENS: None. OPERATIVE FINDINGS: Successful placement of triple-lumen into left subclavian vein via an anatomic approach. DESCRIPTION OF PROCEDURE: Consent was signed verbally, obtained verbally by the patient. A time-ou t was performed. The patient's left neck and chest was prepped and draped in a sterile fashion. I identified the pectoral groove in the midclavicular line. I advanced my needle towards the sternal notch. Once in the there, I identified the subclavian vein and accessed it through a Seldinger tech nique. I fed my wire, which fed without issue. I serially dilated and then placed my catheter with in. It withdrew blood without issue. It was attached to the skin with an interrupted silk suture. The patient tolerated the procedure well without any intraprocedural complications. A sterile dres sing was placed. Post placement chest x-ray, and CT scan showed adequate placement without complica tions. /[id number]/MODL
--- NOTE | 2016-11-16 22:13 | GHP ---
[f rep st] HISTORY AND PHYSICAL DATE OF ADMISSION: 11/16/2016 CHIEF COMPLAINT: Abdominal pain. HISTORY OF PRESENT ILLNESS: This is a 66-year-old female, who I was asked to see emergently in the trauma bay. Briefly, she was brought in by ambulance after the stated that the patient was h aving increasing abdominal pain and became less responsive. In the trauma bay, she was initially ev aluated by the emergency department physician and, on initial vitals, the patient was markedly hypot ensive and tachycardic. In addition, she had a grossly distended abdomen which was tympanitic and ex quisitely tender to palpation. Per the patient's , as most of the history is unobtainable fr om the patient, they just returned last evening from an overseas trip for the last few weeks to [facility]. Their flight last evening was from [place]. The does state that the patient appeared t o not be feeling well over the past few days but that she is rather stoic and did not complain of an ything. He did endorse that her abdomen did look somewhat more distended to the point where she was then extremis when she came here. The patient is able to tell me her name but really nothing aside f rom that. PAST MEDICAL HISTORY: Asthma and GERD. PAST SURGICAL HISTORY: Posterior lower lumbar fusion and a hip ORIF. SOCIAL HISTORY: , really otherwise unobtainable. REVIEW OF SYSTEMS: Unobtainable. CURRENT MEDICATIONS: The endorses that the patient takes some kind of proton pump inhibitor , but that is the extent. ALLERGIES: Penicillins. PHYSICAL EXAMINATION: VITAL SIGNS: Temperature 38.2, heart rate 152, blood pressure 89/76. She is essentially saturating in the low 80s on 100% non-rebreather. GENERAL: She is in moderate distress w ith a GCS around 8-9. CV: She is markedly tachycardic. LUNGS: She has crackles at the bases bilatera lly. ABDOMEN: Grossly distended, tympanitic and exquisitely tender to palpation in all 4 quadrants. EXTREMITIES: Mottled and cool to the touch. LABORATORY DATA: White blood cell count of 15, H and H stable at 15 and 46. Chemistry shows an mikel vated potassium at 6 and elevated creatinine at 2. Initial blood gas obtained shows a pCO2 of 45 and a pH of 7.3 with a deficit of almost 12. IMAGING: Includes a chest x-ray which shows pneumoperitoneum and hypoventilation with bibasilar ate lectasis. Abdomen x-ray shows intraabdominal free air. CT chest, abdomen and pelvis without contra st shows extensive free intraperitoneal air and fluid of unclear origin and small bilateral pleural effusions with extensive atelectasis and patchy consolidation bilaterally. ASSESSMENT AND PLAN: A 66-year-old female with pneumoperitoneum likely secondary to perforated visc us and secondary septic shock. After evaluation in the trauma bay, it was apparent that the patient was in extremis and rapidly decompensating. The decision was made [facility] to protect her airway as she was decompensating; this was successfully done per Dr. Newsome. After this, the patient received a left subclavian central venous catheter per myself in the [facility] [place], down under sterile conditions. She received multiple liters of crystalloid and her pressure r eturned. She was then subsequently taken to the CT scanner where the above images were obtained. Gi emil the fact that she had a large amount of intraabdominal free air and fluid, she was taken then ur gently to the operating room for exploration. Consent was verbally obtained by the as the pa tient was unable to give so and the urgent emergent nature of the case itself. /[id number]/MODL
[2016-11-16] MEDS: ACETAMINOPHEN 650 MG SUPP PR PRN (22:37)
[2016-11-17] MEDS: PETROLAT,WHT/MIN OIL/SOD CHL 3.5 GM OPHT.OINT EACHEYE PRN (01:06)
[2016-11-17] MEDS: PROPOFOL/EMULSION 100 ML IV SCH ×2 (02:12→17:12)
[2016-11-17] MEDS: NOREPINEPHRINE/NS 500 ML IV SCH ×3 (02:13→21:16)
[2016-11-17 05:05] LABS: BASE EXCESS -5.1 mEq/L (-2.5-2.5); BICARBONATE 18 mEq/L (22-26); MEASURED OXYGEN SATURATION 95 % (92-95); PCO2 27 mmHg (34-38); PO2 77 mmHg (65-75); TCO2 19 mEq/L (23-27)
[2016-11-17 05:06] LABS: ABSOLUTE NRBC COUNT 0.08 10^3/uL (0-0.01); ADD DIFF? YES; ADD MORPH? NO; ATYPICAL LYMPHOCYTE FLAG 0 (0-99); FRAGMENT RBC FLAG 0 (0-99); HEMATOCRIT 33.4 % (38.0-47.0); HEMOGLOBIN 11.3 g/dL (12.6-16.3); LIPEMIA HEMOLYSIS FLAG 90 (0-99); MEAN CELL HEMOGLOBIN CONCENTR. 33.8 g/dL (32.4-36.7); MEAN CELL VOLUME 94.6 fL (81.5-99.8); MEAN PLATELET VOLUME 12.4 fL (8.7-11.7); NRBC-AUTO% 0.6 % (0.0-0.2); PLATELET CLUMPS FLAG 20 (0-99); PLATELET COUNT 116 10^3/uL (150-400); RED BLOOD CELL COUNT 3.53 10^6/uL (4.18-5.33); RED CELL DISTRIBUTION WIDTH 16.9 % (11.5-15.2)
[2016-11-17 05:08] LABS: END TIDAL CO2 28; O2 CONCENTRATIION 50 % (0-100); P/F RATIO 154 RATIO; TOTAL RATE 30
[2016-11-17 05:10] LABS: ASSIST CONTROL YES
[2016-11-17 05:18] LABS: ALANINE AMINOTRANSFERASE 76 IU/L (9-52); ALBUMIN 1.6 g/dL (3.5-5.0); ALKALINE PHOSPHATASE 61 IU/L (38-126); ANION GAP 9 mEq/L (8-16); ASPARTATE AMINOTRANSFERASE 54 IU/L (14-46); BILIRUBIN,TOTAL 2.1 mg/dL (0.1-1.4); CALCIUM 7.2 mg/dL (8.5-10.4); CARBON DIOXIDE 19 mEq/l (22-31); CHLORIDE 115 mEq/L (97-110); GLOMERULAR FILTRATION RATE 55; GLUCOSE 225 mg/dL (70-100); POTASSIUM 4.4 mEq/L (3.5-5.2); SODIUM 143 mEq/L (134-144); TOTAL PROTEIN 2.9 g/dL (6.3-8.2)
[2016-11-17] MEDS ORDERED: D5W 1,000 ML IV SCH (05:29)
[2016-11-17] MEDS ORDERED: INSULIN REGULAR HUMAN 100 UNIT in NS 100 ML IV SCH (05:29)
[2016-11-17] MEDS ORDERED: D50W 25 GM/50 ML SYR IVP PRN (05:29)
[2016-11-17 05:36] LABS: BILIRUBIN-CONJUGATED 1.4 mg/dL (0.0-0.5); BILIRUBIN-UNCONJUGATED 0.7 mg/dL (0.0-1.1)
[2016-11-17 05:44] LABS: LEFT SHIFT FLG 300 (0-99)
[2016-11-17 05:45] LABS: ADD SCAN? NO
[2016-11-17] MEDS: HYDROCORTISONE 100 MG/2 ML VIAL IVP SCH ×3 (06:38→21:16)
--- NOTE | 2016-11-17 06:59 | GOP ---
[f rep st] OPERATIVE REPORT DATE OF OPERATION: 11/16/2016 SURGEON: Lars Arreola MD SOCIAL INSURANCE ADVISER: Emmanuelle Arriola MD, Nick Padilla PA-C. ANESTHESIA: General endotracheal. ANESTHESIOLOGIST: Per Dr. Tavarez. PREOPERATIVE DIAGNOSIS: Pneumoperitoneum, likely perforated viscus. POSTOPERATIVE DIAGNOSIS: Pneumoperitoneum, gross abdominal pus without roshni perforation identified. PROCEDURE PERFORMED: Exploratory laparotomy with abdominal washout. FINDINGS: Gross amount of purulence was noted in all 4 quadrants. Wide mobilization of all retroperitoneal structures was performed. Intraoperative leak test was performed with methylene blue. No roshni perforation was identified in any hollow viscus. SPECIMENS: Cultures. ESTIMATED BLOOD LOSS: 50 cc. DESCRIPTION OF PROCEDURE: The patient was brought emergently to the operating room. Her abdomen was prepped and draped in a typical sterile fashion. Prior to that, a [employer] time-out was performed. Antibiotics were given on-call to the operating room. I entered the abdomen via a generous midline incision and carried this down to the subcutaneous tissue. Successfully entered the patient's abdomen where gross purulence was identified in all 4 quadrants. After this was evacuated in a systematic fashion, I then turned my attention toward running the bowel. I started in the stomach. I carried this down all the way through the duodenal sweep. Via wide kocherization mobilized the 2nd and 3rd portions of the duodenum. Identified no roshni perforation. I then continued to run the bowel, identified the ligament of Treitz and ran the small bowel all the way to the terminal ileum. Again, no roshni perforation was identified. I then widely mobilized the right colon via the white line of Toldt and continued my visualization of the ascending hepatic flexure, transverse colons. Again, no roshni perforation was identified. I then widely mobilized the splenic flexure of the colon and carried this down all the way to the sigmoid colon, and again identified no perforation. I ran the bowel systematically in this fashion multiple different times and was still unsuccessful in identifying any perforation which would have led to this in the 1st place. To aid in this, I had the anesthesiologist give some methylene blue via the nasogastric tube to see if this could extravasate and again found no extravasation within the abdominal cavity proper. I did have one of my partners come in and assess the situation as well. After systematically evaluating the bowel, they concurred that no roshni perforation was present at this point in time. I then turned my attention toward abdominal washout using copious amounts of bacitracin-impregnated sterile saline. I irrigated all 4 quadrants noting clear saline effluent in the suction canister. Given the fact that the patient was in extremis and no perforation was identified when there was clearly gross purulence within the abdominal cavity, I elected to keep the patient's abdomen open for reexploration. The ABThera device was brought into the operative field, trimmed appropriately and then placed into the patient's abdomen and attached to the wound VAC canister suction. The patient was then transported from the operative suite to the intensive care unit intubated in stable but guarded condition. DRAINS: Open abdomen ABThera device. COUNTS: All counts were reported as correct x2. /[id number]/MODL MTDD
[2016-11-17 07:05] LABS: PLATELET ESTIMATE DECREASED (ADEQ)
[2016-11-17 07:12] LABS: ECHINOCYTES 1+; LARGE PLATELETS PRESENT; MACROCYTES 1+
[2016-11-17] MEDS: MEROPENEM 1 GM in NS 100 ML IV SCH ×3 (08:57→21:16)
[2016-11-17] MEDS: PANTOPRAZOLE SODIUM 40 MG in NS 100 ML IV SCH ×2 (08:57→20:27)
--- NOTE | 2016-11-17 08:58 | PCMIDPN ---
Assessment/Plan: #Severe Septic shock secondary to presumed bowel perf and subsequent peritonitis s/p washout and bacteremia. Patient remains critically ill on 2 pressors, febrile, with significant bandemia. Favorable signs include FiO2 = 50 % and improving renal function. Noted planned return to OR today for repeat washout #Bacteremia: GNR not ID'd by PCR, awaiting ID #Bandemia #ARF -improved # mild hepatitis likely related to sepsis Recommendations 1) Increase dose of meropenem, broad coverage of enteric gram-negative rods including ESBL 2) Resume vancomycin until further maturity of cultures 3) continue micafungin for coverage of yeast in the setting bowel perforation 4) await ID of blood cultures Microbiology 11/16 blood cx (08/31) GNR 11/16 peritoneal gram stain positive for 3+GPC, 2+ GNR; culture pending meds micafungin 100mg IV daily #2 meropenem 1gm IV q12H #1 Vancomycin 1.5gm IV x [address] Nuñez and RNNury Subjective: Continued high pressor requirement overnight, bicarb gtt. started Objective: Vital Signs Temp Pulse Resp BP Pulse Ox 37.3 C 95 30 H 130/61 H 98 11/17/16 08:00 11/17/16 08:00 11/17/16 08:00 11/17/16 08:00 11/17/16 08:00 Laboratory Results 11/17/16 04:55 11/17/16 04:55 11/16/16 11/17/16 11/18/16 05:59 05:59 05:59 Intake Total 7225.3 Output Total 2190 225 Balance 5035.3 -225 - Physical Exam General Appearance: other (sedated) EENT: ET Tube, NG Tube Respiratory: coarse breath sounds Neck: supple Cardiac/Chest: regular rate, rhythm, No systolic murmur Extremities: pedal edema Abdomen: distended, tender, other (woun d vac in place midline; no bowel sounds) Pelvic Exam: cano Skin: pallor, No rash Neuro/Psych: other (sedated) - Line/s other Lines: other (R radial A line c/d/i; L subclavian c/d/i ), No drainage, No erythema - Time Spent With Patient Time Spent with Patient: greater than 35 minutes Time Spent with Patient: Greater than 35 minutes spent on this patients care, greater than 50% of time spent counseling, educating, and coordinating care regarding the above mentioned plan. ICD10 Worksheet Patient Problems: Problems Problem Status Onset Perforated abdominal viscus Acute
[2016-11-17] MEDS: CHLORHEXIDINE GLUCONATE 15 ML UDL PO SCH ×2 (08:59→20:29)
[2016-11-17] MEDS ORDERED: ENOXAPARIN 40 MG/0.4 ML SYR SC SCH (09:00)
[2016-11-17] MEDS: MICAFUNGIN NA 100 MG in NS 100 ML IV SCH (09:03)
[2016-11-17] MEDS: VASOPRESSIN/DEXTROSE 250 ML IV SCH ×2 (10:18→21:02)
[2016-11-17] MEDS: VANCOMYCIN HCL/NORMAL SALINE 250 ML IV SCH ×2 (12:13→21:16)
[2016-11-17 12:46] LABS: BASE EXCESS -3.1 mEq/L (-2.5-2.5); BICARBONATE 21 mEq/L (22-26); MEASURED OXYGEN SATURATION 92 % (92-95); PCO2 38 mmHg (34-38); PO2 71 mmHg (65-75); TCO2 22 mEq/L (23-27)
[2016-11-17 12:47] LABS: ASSIST CONTROL YES
[2016-11-17 12:48] LABS: O2 CONCENTRATIION 40 % (0-100); P/F RATIO 178 RATIO; TOTAL RATE 22
--- NOTE | 2016-11-17 13:25 | GCON ---
[f rep st] CONSULTATION DATE OF CONSULTATION: 11/17/2016 CHIEF COMPLAINT: Abdominal pain, abnormal x-ray. I was asked to see this patient in consultation by Dr. Arreola for chief complaint of abnormal x- ray, abdominal pain, concern for perforated viscus. The patient is a 66-year-old with a long histor y of rheumatoid arthritis, long history of prednisone who presented yesterday with acute abdomen and obtunded. X-rays revealed free air, concern for perforated viscus. She was sent to surgery emerge ntly. Abdomen had purulent material; however, on close inspection, a clear perforation could not be identified. She went back to the OR again today with careful inspection of the bowel, but again, n o clear perforation. GI consultation is requested to help identify source of perforation. The david ent is obtunded. I am unable to obtain any history from her. Patient's is not at the [facility]. History is obtained from the chart. Apparently, she has a long history of rheumatoid arthritis on prednisone and potentially a biologic. No list of NSAID use. There is no report of history of ulcer disease or colitis or Crohn disease. History is notable for patient had recently traveled thr [facility] and just returned a few days ago. Was not feeling well for the past few days but is sto ic and did not complain of systemic symptoms. No reports of blood in stools or hematemesis. ALLERGIES: Listed as penicillin. MEDICATIONS: At home were noted to be prednisone, Celebrex, Lipitor, methotrexate, Ambien. PAST MEDICAL HISTORY: Notable for rheumatoid arthritis on chronic prednisone, history of diverticul osis, asthma, chronic pain. SOCIAL HISTORY: Per chart, patient drinks 1 alcoholic beverage a day. FAMILY HISTORY: Per chart, negative for colitis. REVIEW OF SYSTEMS: Unable to obtain. PHYSICAL EXAMINATION: VITAL SIGNS: Temp is 37.2, BP 105/51, pulse 108, patient is on pressors. CO NSTITUTIONAL: Patient is intubated, obtunded. EYES: No scleral icterus. Oropharynx: Patient is intubated. CARDIOVASCULAR: She is tachycardic. CHEST: Coarse breath sounds bilaterally. ABDOMEN: She has a n open surgical wound from her abdomen post perforation with drains. NEUROLOGIC: Obtunded. SKIN: No clear rashes. LABORATORY DATA: White count 13, hematocrit 33.9, protime 20 with an INR 1.7. BUN and creatinine a re 44 and 1. LFTs: Alkaline phosphatase 61, AST 54, ALT 76, albumin 2.1. X-ray on admission yesterday showed copious free air. CT scan from 11/16/2016 showed pneumoperitone um consistent with perforated viscus with free intraperitoneal air, origin unclear. They do note th at there is thickening at the distal ilium and some thickening to the jejunum. ASSESSMENT: Perforated bowel, patient critically ill. Site of perforation remains unclear although the patient with chronic prednisone and Celebrex could put her at increased risk for gastric ulcers potentially perforation from gastric or duodenal ulcer. There is some suggestion of thickening of the ilium although nonspecific. By history, there is no clear history of Crohn disease. In discuss ion with the surgeon, Dr. Arreola, he is very concerned about possibility of a gastric or duodena l source for perforation although could not identify it operatively. Surgeon requested a considerat ion for upper endoscopy to assess for potential site of perforation in the stomach or duodenum. Thi s would hold higher risk for this patient given her overall medical status and recent perforation. However, it is understood that patient is to undergo repeat surgery in the next 24 hours to close he r abdomen and it would be very helpful to identify a potential site of perforation. Therefore, bene fits would likely outweigh the risks for urgent upper endoscopy. I have attempted to contact the dae phillips's , who is not available; however, we will wait until he is available to discuss risks and benefits before proceeding with upper endoscopy. Thank you for this consult. /[id number]/MODL
[2016-11-17] MEDS ORDERED: EPINEPHrine 1 MG/10 ML SYR IVP ONE (13:50)
--- NOTE | 2016-11-17 14:33 | SOAPPROG ---
SOAP Progress Note Assessment/Plan: Assessment/Plan POD#1 66yo F s/p ex-lap, washout ? perforated viscus - Neuro: sedated on propofol, fentanyl. Winces with abd palpation but havent tried much sedation vacation - Pulm: remains ventilated. 650/22/40/5. Acidosis resolved. BD resolving - CV: remains hypotensive on pressors. Tachycardia had improved but never better than 120s - Abd: ABThera in place, drainage has been serosang, no bile or blue dye. NGT in place, draining appropriately. - Renal: making urine, Cr 1.0, improved - ID: WBC 13 from 9, Cx growing prelim mixed abdominal margareth. On BS abx, appreciate ID assistance. - Dispo: remains critically ill, still heavy pressor requirement. GI to see today, needs EGD prior to takeback to r/o prox /DU perf as would guide exploration tomorrow. Planning takeback tomorrow for washout, closure. 11/17/16 14:30 11/17/16 14:32 11/17/16 14:33 11/17/16 14:34 Subjective: Winces with abd palpation. Objective: Vital Signs Temp Pulse Resp BP Pulse Ox 37.1 C 107 H 22 H 97/60 L 93 11/17/16 11:59 11/17/16 11:59 11/17/16 11:59 11/17/16 11:59 11/17/16 11:59 Laboratory Results 11/17/16 04:55 11/17/16 04:55 11/16/16 11/17/16 11/18/16 05:59 05:59 05:59 Intake Total 7225.3 Output Total 2190 500 Balance 5035.3 -500 PT 20.2 SEC (12.0-15.0) H 11/16/16 13:00 INR 1.72 (0.83-1.16) H 11/16/16 13:00 Physical Exam - Physical Exam General Appearance: other (intubated and sedated ) Respiratory: rales Cardiac/Chest: tachycardia Abdomen: other (open, wound edges clean. VAC in place, drainage serosang ) ICD10 Worksheet Patient Problems: Problems Problem Status Onset Perforated abdominal viscus Acute
[2016-11-17] MEDS: fentaNYL/NACL 100 ML IV SCH ×2 (14:41→22:18)
--- NOTE | 2016-11-17 15:57 | CPEKG ---
Heart Rate: 181 RR Interval: 331 QRSD Interval: 76 QT Interval: 244 QTC Interval: 424 QRS [place]: 67 T Wave [place]: 232 EKG Severity - ABNORMAL ECG - EKG Impression: ATRIAL FIBRILLATION WITH RAPID V-RATE EKG Impression: LOW VOLTAGE IN FRONTAL LEADS EKG Impression: NONSPECIFIC T ABNORMALITIES, DIFFUSE LEADS Electronically Signed By: Fady Reyes 18-Nov-2016 10:46:52
[2016-11-17] MEDS ORDERED: AMIODARONE HCL 100 ML IV ONE (15:59)
[2016-11-17] MEDS ORDERED: AMIODARONE HCL 200 ML IV ONE ×2 (16:00)
[2016-11-17 16:10] LABS: IONIZED CALCIUM 1.13 MMOL/L (1.12-1.30)
[2016-11-17 17:11] LABS: ANION GAP 6 mEq/L (8-16); CALCIUM 6.7 mg/dL (8.5-10.4); CARBON DIOXIDE 22 mEq/l (22-31); CHLORIDE 112 mEq/L (97-110); CREATININE 0.8 mg/dL (0.6-1.0); GLOMERULAR FILTRATION RATE > 60; GLUCOSE 173 mg/dL (70-100); MAGNESIUM 1.9 mg/dL (1.6-2.3); POTASSIUM 3.5 mEq/L (3.5-5.2); SODIUM 140 mEq/L (134-144)
--- NOTE | 2016-11-17 17:13 | PDINTPN ---
[employer] Faculty Assistant Progress Note Assessment/Plan: Assessment/plan: 66 F admitted with abdominal pain and hypotension found to have free air and pus on CT. She was taken to surgery but a defect was not found despite two surgeons. She was then brought to the ICU with ongoing [id number] and septic shock from peritonitis and has required ongoing support with pressors, ventilator, and septic shock protocol. She also has a history of RA and is chronic prednisone for this, so stress dose steroids were added. * Peritonitis and septic shock- she likely had a perforated viscous at least at some point. She is covered with meropenem, micafungin, and vanco was added today ; GNRs were identified in blood cx but a specific porganism has not yet been identified. ID following. Continue pressor support with target MAP >65. Continue Hydrocortisone. GI came to see her today for EGD, but she was too unstable for scope (HR 170 in new afib), so this had to be postponed. Re- exploration planned for the near future. * Afib with RVR- this occurred after her left subclavian central line was dislodged with minimal existing suture. She was without pressors briefly and her BP dropped to the 70's with resultant tachycardia. Once her pressors were resumed (after replacement of line) her HR persisted and EKG showed afib. An amiodarone drip was started after bolus. She will need an echo soon. Dilt, esmolol, metoprolol, dig were also considered, but amiodarone seemed the best choice given her existing hypotension. I doubt this is the resulkt of a cardiac event but will follow troponins. * Acute respiratory failure with hypoxemia- 2/2 septic shock. Her oxygen requirements are low for a vent, though active management of this problem was required today. Continue support until her abdominal issues can be better characterized, and her hemodynamics more stable. * Metabolic acidosis- she has converted from an AG to non-AG acidosis, so HCO3 is reasonable for now. She likely has a hyperchloremic acidosis from large amounts of saline /20. * CORETTA- this has improved with adequate UOP. * Transaminitis- Minor elevation of LFTs which are declining with adequate BP support * Critical care time 60 minutes involving complex multiorgan involvement and failure from severe septic shock (separate from procedures) Objective: Vital Signs Temp Pulse Resp BP Pulse Ox 37.7 C 177 H 22 H 97/41 L 94 11/17/16 16:00 11/17/16 16:00 11/17/16 16:00 11/17/16 16:00 11/17/16 16:00 Microbiology 11/16/16 Unknown Mycobacterial Smear (TANIA) - Final Peritoneal Fluid - Aspirate Laboratory Results 11/17/16 04:55 11/16/16 11/17/16 11/18/16 05:59 05:59 05:59 Intake Total 7225.3 Output Total 2190 725 Balance 5035.3 -725 PT 20.2 SEC (12.0-15.0) H 11/16/16 13:00 INR 1.72 (0.83-1.16) H 11/16/16 13:00 Physical Exam - Physical Exam General Appearance: no apparent distress, obese, other (sedated) EENT: PERRL/EOMI, ET tube Neck: supple Respiratory: lungs clear, normal breath sounds, No respiratory distress, No rales, No rhonchi Cardiac/Chest: normal peripheral pulses, regular rate, rhythm, tachycardia, No edema Abdomen: soft, No organomegaly, No distended Skin: normal color, warm/dry, other (resolved mottled skin in LE's) Lymphatic: no adenopathy Extremities: normal inspection, No pedal edema Neuro/Psych: other (sedated on vent) ICD10 Worksheet Patient Problems: Problems Problem Status Onset Perforated abdominal viscus Acute
--- NOTE | 2016-11-17 19:40 | GPN ---
[f rep st] PROCEDURE NOTE PROCEDURE: Exchange central line. INDICATION: Dislodgement of the existing subclavian triple-lumen catheter. DESCRIPTION OF PROCEDURE: Using sterile technique, the existing catheter was removed over a guidewi re after confirming its position via chest x-ray. Using Betadine sponges, the existing line was wel l soaked in Betadine. Wire was easily passed through the distal port into the left subclavian vein. New triple-lumen catheter was placed over this wire. A subsequent chest x-ray showed it to be in excellent position. There were no complications. /[id number]/MODL
[2016-11-17] MEDS ORDERED: PROTOCOL POTASSIUM 1 DOSE MISC PRN (19:56)
[2016-11-17] MEDS ORDERED: PROTOCOL K PHOSPHATE 1 DOSE IV PRN (19:56)
[2016-11-17] MEDS ORDERED: PROTOCOL MAGNESIUM 1 DOSE IV PRN (19:56)
[2016-11-17] MEDS: ACETAMINOPHEN 650 MG SUPP PR PRN (20:29)
[2016-11-17] MEDS: POTASSIUM Cl (KCl) 50 ML IV SCH ×2 (20:30→21:17)
--- NOTE | 2016-11-17 20:53 | HOSPPROG ---
Hospitalist Progress Note Assessment/Plan: called by micro that patient has grp A strep in blood. I am not taking care of patient , nor is any hospitalist but I was unaware of this as called at 9 pm at home on meropenem grp AA strep covered Objective: Vital Signs Temp Pulse Resp BP Pulse Ox 37.8 C 90 22 H 100/58 L 98 11/17/16 20:00 11/17/16 20:00 11/17/16 20:00 11/17/16 20:00 11/17/16 20:00 Microbiology 11/16/16 Unknown Mycobacterial Smear (TANIA) - Final Peritoneal Fluid - Aspirate Laboratory Results 11/17/16 04:55 11/17/16 15:55 11/16/16 11/17/16 11/18/16 05:59 05:59 05:59 Intake Total 7225.3 3023 Output Total 2190 1260 Balance 5035.3 1763 PT 20.2 SEC (12.0-15.0) H 11/16/16 13:00 INR 1.72 (0.83-1.16) H 11/16/16 13:00 ICD10 Worksheet Patient Problems: Problems Problem Status Onset Perforated abdominal viscus Acute
[2016-11-17] MEDS ORDERED: AMIODARONE TACHY-18HR INFSN (ORDER 3/3) IV ONE (22:00)
[2016-11-18 01:14] LABS: POTASSIUM 4.7 mEq/L (3.5-5.2)
[2016-11-18 04:04] LABS: BASE EXCESS -3.2 mEq/L (-2.5-2.5); BICARBONATE 21 mEq/L (22-26); MEASURED OXYGEN SATURATION 95 % (92-95); PCO2 35 mmHg (34-38); PO2 84 mmHg (65-75); TCO2 22 mEq/L (23-27)
[2016-11-18 04:06] LABS: END TIDAL CO2 38; O2 CONCENTRATIION 40 % (0-100); P/F RATIO 210 RATIO
[2016-11-18 04:12] LABS: ABSOLUTE NRBC COUNT 0.03 10^3/uL (0-0.01); ADD DIFF? YES; ADD MORPH? NO; ATYPICAL LYMPHOCYTE FLAG 0 (0-99); FRAGMENT RBC FLAG 0 (0-99); HEMATOCRIT 30.7 % (38.0-47.0); HEMOGLOBIN 10.5 g/dL (12.6-16.3); LIPEMIA HEMOLYSIS FLAG 90 (0-99); MEAN CELL HEMOGLOBIN 31.8 pg (27.9-34.1); MEAN CELL HEMOGLOBIN CONCENTR. 34.2 g/dL (32.4-36.7); MEAN PLATELET VOLUME 13.6 fL (8.7-11.7); NRBC-AUTO% 0.2 % (0.0-0.2); PLATELET CLUMPS FLAG 0 (0-99); PLATELET COUNT 57 10^3/uL (150-400); RED CELL DISTRIBUTION WIDTH 17.2 % (11.5-15.2)
[2016-11-18 04:14] LABS: LEFT SHIFT FLG 300 (0-99)
[2016-11-18 04:15] LABS: ADD SCAN? NO
[2016-11-18 04:16] LABS: ANION GAP 5 mEq/L (8-16); CARBON DIOXIDE 22 mEq/l (22-31); CHLORIDE 113 mEq/L (97-110); CREATININE 0.7 mg/dL (0.6-1.0); GLOMERULAR FILTRATION RATE > 60; GLUCOSE 159 mg/dL (70-100); POTASSIUM 4.5 mEq/L (3.5-5.2); SODIUM 140 mEq/L (134-144)
[2016-11-18 04:17] LABS: ALANINE AMINOTRANSFERASE 82 IU/L (9-52); ALBUMIN 1.5 g/dL (3.5-5.0); ALKALINE PHOSPHATASE 79 IU/L (38-126); ASPARTATE AMINOTRANSFERASE 57 IU/L (14-46); BILIRUBIN,TOTAL 1.6 mg/dL (0.1-1.4); CALCIUM 6.5 mg/dL (8.5-10.4); MAGNESIUM 1.9 mg/dL (1.6-2.3)
[2016-11-18] MEDS: fentaNYL/NACL 100 ML IV SCH ×2 (05:00→16:06)
[2016-11-18] MEDS: NS 1,000 ML IV SCH (05:00)
[2016-11-18] MEDS: HYDROCORTISONE 100 MG/2 ML VIAL IVP SCH ×3 (05:01→22:26)
[2016-11-18] MEDS: MEROPENEM 1 GM in NS 100 ML IV SCH ×3 (05:01→21:27)
[2016-11-18 05:34] LABS: ECHINOCYTES 1+; POLYCHROMASIA 1+
[2016-11-18 05:35] LABS: LARGE PLATELETS PRESENT; PLATELET ESTIMATE DECREASED (ADEQ)
[2016-11-18] MEDS: CHLORHEXIDINE GLUCONATE 15 ML UDL PO SCH ×2 (08:05→20:47)
[2016-11-18] MEDS: MICAFUNGIN NA 100 MG in NS 100 ML IV SCH (08:06)
[2016-11-18] MEDS: VASOPRESSIN/DEXTROSE 250 ML IV SCH ×2 (08:23→18:20)
[2016-11-18] MEDS ORDERED: BUPIVACAINE 0.5% 30 ML SDV ONE (09:08)
[2016-11-18] MEDS: PANTOPRAZOLE SODIUM 40 MG in NS 100 ML IV SCH ×2 (09:11→20:48)
--- NOTE | 2016-11-18 09:32 | GPN ---
[f rep st] PROCEDURE NOTE DATE OF PROCEDURE: 11/18/2016 PROCEDURE: Upper endoscopy. INDICATIONS AND PREPROCEDURE DIAGNOSIS: Rule out perforated ulcer. POSTPROCEDURE DIAGNOSIS: No perforated ulcer seen. PREMEDICATION: None (patient is already on propofol, fentanyl, Peridex, etc.). COMPLICATIONS: None. TOTAL TIME OF PROCEDURE: From beginning until end was 12 minutes. FINDINGS: After informed consent was obtained via the patient's , the patient remained in the supine position. The video upper endoscope was placed under direct visualization and advanced. The esophagus and duodenum were normal. As much of the small bowel was looked at as possible, using the full length of the upper endoscope. The stomach was normal except for 1 circular gastric erosion, almost certainly due to NG tube suction. There were some retained gastric contents in the dependent portion of the stomach. Upon full withdrawal, the NG tube remained in place. IMPRESSION: No perforated ulcer seen. PLAN: I will discuss the above with her surgeon. Otherwise, further management as per her surgeon and the critical care team. I will sign off. Please call if we can be of further help in the future. /[id number]/MODL MTDD
[2016-11-18] MEDS: VANCOMYCIN HCL/NORMAL SALINE 250 ML IV SCH ×2 (09:57→22:23)
[2016-11-18] MEDS: PROPOFOL/EMULSION 100 ML IV SCH ×2 (09:57→19:32)
--- NOTE | 2016-11-18 10:15 | SOAPPROG ---
SOAP Progress Note Assessment/Plan: Assessment/Plan: Presentation with a perforated viscous, unknown site. A perforated peptic ulcer is certainly possible. - EGD. With her critical care status, she is certainly at increased risk for this procedure, but suspect the benefits outweigh the risks, and suspect she will do well. 11/18/16 10:12 Subjective: cc: perforated viscus Unable to obtain history, as intubated, sedated. Objective: Vital Signs Temp Pulse Resp BP Pulse Ox 37.7 C 88 22 H 116/67 95 11/18/16 10:00 11/18/16 10:00 11/18/16 10:00 11/18/16 10:00 11/18/16 10:00 Microbiology 11/16/16 Unknown Mycobacterial Smear (TANIA) - Final Peritoneal Fluid - Aspirate Laboratory Results 11/18/16 03:55 11/18/16 03:55 11/17/16 11/18/16 11/19/16 05:59 05:59 05:59 Intake Total 7225.3 5472 Output Total 2190 1487 Balance 5035.3 3985 PT 20.2 SEC (12.0-15.0) H 11/16/16 13:00 INR 1.72 (0.83-1.16) H 11/16/16 13:00 Physical Exam - Physical Exam General Appearance: WD/WN, alert EENT: PERRL/EOMI, normal ENT inspection, pharynx normal, TMs normal Neck: non-tender, full range of motion, supple, normal inspection Respiratory: chest non-tender, lungs clear, normal breath sounds Cardiac/Chest: normal peripheral pulses, regular rate, rhythm Peripheral Pulses: 2+: carotid (R), carotid (L), femoral (R), femoral (L), dorsalis-pedis (R), dorsalis-pedis (L) Abdomen: No normal bowel sounds (Abdomen s/p surgery) Pelvic Exam: deferred Rectal: deferred Back: Normal inspection Skin: normal color, warm/dry Lymphatic: no adenopathy Extremities: normal range of motion, non-tender, normal inspection, normal capillary refill Neuro/Psych: no motor/sensory deficits, No alert ICD10 Worksheet Patient Problems: Problems Problem Status Onset Perforated abdominal viscus Acute
[2016-11-18] MEDS ORDERED: BACITRACIN 50,000 UNITS/10 ML SYR IRR ONE (10:34)
[2016-11-18] MEDS ORDERED: POLYMYXIN B SULFATE 500,000 UNIT/10 ML SYR IRR ONE (10:34)
[2016-11-18] MEDS ORDERED: ALBUMIN 5% 250 ML BOTTLE IV ONE (11:06)
--- NOTE | 2016-11-18 12:56 | POSTOPPROG ---
Post Op Note Date of Operation: 11/18/16 Surgeon: Lars Arreola Anesthesiologist: Christiane Anesthesia: GET(General Endotracheal) Pre-op Diagnosis: open abdomen Post-op Diagnosis: same Procedure: Ex-lap, washout with abdominal closure Findings: No perforation, succus, stool or abscess identified Inf/Abcess present in the surg proc area at time of surgery?: No EBL: Minimal Drains: Brenton Graham
--- NOTE | 2016-11-18 13:13 | PCMIDPN ---
Assessment/Plan: Assessment/Plan: 1. Severe septic shock 2/2 to likely perforated viscus, peritonitis: s/p wash out x 2 (11/16, 11/18/16) -Pus found in abdominal cavity at first washout, with GPC,GNR on GS and mixed margareth on cx. -s/p wash out /exploration today: no pus,stool, abscess, succus found. no perforation identified. \ -s/p EGD: no perforation noted. -Currently on Broad antimicrobial coverage: with Vanco, Merem, Micafungin -Will continue current regimen for now while cultures are maturing. -wbc still elevated. PLt down to 57. Creatinine at 0.7. -check vanco trough in AM. -Care coordinated with Surgery. 2. Polymicrobial Bacteremia: -secondary to above. -Cx so far with: Streptococcus and GNR -Awaiting further ID of cultures. Then will adjust antimicrobials as necessary. Meds vanco 1g q12- 11/17 merem 1g q8- 11/17 micafungin 100mg bobbi- 11/17 Subjective: Remains in ICU, intubated, sedated. Intermittent low grade temps. Just back from wash out. Drain in place. Objective: Vital Signs Temp Pulse Resp BP Pulse Ox 37.7 C 88 22 H 116/67 95 11/18/16 10:00 11/18/16 10:00 11/18/16 10:00 11/18/16 10:00 11/18/16 10:00 Microbiology 11/16/16 Unknown Mycobacterial Smear (TANIA) - Final Peritoneal Fluid - Aspirate Laboratory Results 11/18/16 03:55 11/18/16 03:55 11/17/16 11/18/16 11/19/16 05:59 05:59 05:59 Intake Total 7225.3 5472 Output Total 2190 1487 Balance 5035.3 3985 - Physical Exam General Appearance: other (intubated ,sedated in ICU) EENT: ET Tube Respiratory: lungs clear (anteriorly) Cardiac/Chest: regular rate, rhythm Extremities: No swelling Abdomen: other (bs quiet, mild distention. KATHRYN drain noted with serosanguinous drainage. wound vac overlying midline abd. ) Pelvic Exam: cano Skin: other (ecchymosis over left forarm. ) ICD10 Worksheet Patient Problems: Problems Problem Status Onset Perforated abdominal viscus Acute
[2016-11-18] MEDS: AMIODARONE HCL 200 ML IV SCH (13:25)
[2016-11-18] MEDS: NOREPINEPHRINE/NS 500 ML IV SCH (13:25)
--- NOTE | 2016-11-18 13:42 | PDINTPN ---
[employer] Manager Progress Note Assessment/Plan: Assessment/plan: 66 F admitted with abdominal pain and hypotension found to have free air and pus on CT. She was taken to surgery but a defect was not found despite two surgeons. She was then brought to the ICU with ongoing [id number] and septic shock from peritonitis and has required ongoing support with pressors, ventilator, and septic shock protocol. She also has a history of RA and is chronic prednisone for this, so stress dose steroids were added. * Peritonitis and septic shock- she likely had a perforated viscous at least at some point. She is covered with meropenem, micafungin, and vanco; GNRs were identified in blood cx but a specific organism has not yet been identified. ID following. Continue pressor support with target MAP >65. Continue Hydrocortisone. EGD without evidence of leak. Going back to OR for closure and second look * Afib with RVR- this occurred after her left subclavian central line was dislodged with minimal existing suture. She was without pressors briefly and her BP dropped to the 70's with resultant tachycardia. Once her pressors were resumed (after replacement of line) her HR persisted and EKG showed afib. An amiodarone drip was started after bolus. She will need an echo soon. Dilt, esmolol, metoprolol, dig were also considered, but amiodarone seemed the best choice given her existing hypotension. Converted to NSR. Continue amiodarone for now * Acute respiratory failure with hypoxemia- 2/2 septic shock. Her oxygen requirements are low for a vent, though active management of this problem was required. Continue support until she returns from OR and may pursue weaning trials today * Metabolic acidosis- she has converted from an AG to non-AG acidosis, so HCO3 was reasonable. She likely has a hyperchloremic acidosis from large amounts of saline 11/16. DC HCO3 drip today * CORETTA- this has improved with adequate UOP. * Transaminitis- Minor elevation of LFTs which are declining with adequate BP support * Critical care time 60 minutes involving complex multiorgan involvement and failure from severe septic shock (separate from procedures) 11/18/16 13:39 Objective: Vital Signs Temp Pulse Resp BP Pulse Ox 37 C 77 22 H 108/65 95 11/18/16 13:00 11/18/16 13:00 11/18/16 13:00 11/18/16 13:00 11/18/16 13:00 Microbiology 11/16/16 Unknown Mycobacterial Smear (TANIA) - Final Peritoneal Fluid - Aspirate Laboratory Results 11/18/16 03:55 11/17/16 11/18/16 11/19/16 05:59 05:59 05:59 Intake Total 7225.3 5472 Output Total 2190 1487 Balance 5035.3 3985 PT 20.2 SEC (12.0-15.0) H 11/16/16 13:00 INR 1.72 (0.83-1.16) H 11/16/16 13:00 Physical Exam - Physical Exam General Appearance: no apparent distress EENT: PERRL/EOMI, ET tube Neck: supple Respiratory: lungs clear, normal breath sounds, No respiratory distress, No rales, No rhonchi Cardiac/Chest: normal peripheral pulses, regular rate, rhythm, tachycardia Abdomen: soft, other (wound vac), No distended Skin: normal color, warm/dry Lymphatic: no adenopathy Extremities: No pedal edema Neuro/Psych: cognition abnormalities ICD10 Worksheet Patient Problems: Problems Problem Status Onset Perforated abdominal viscus Acute
[2016-11-18 13:50] LABS: POTASSIUM 4.4 mEq/L (3.5-5.2)
--- NOTE | 2016-11-18 16:43 | GOP ---
[f rep st] OPERATIVE REPORT DATE OF OPERATION: 11/18/2016 SURGEON: aLrs Arreola MD PICTURE FRAMER: None. ANESTHESIA: General endotracheal per Dr. Cartagena. PREOPERATIVE DIAGNOSIS: Open abdomen. POSTOPERATIVE DIAGNOSIS: Open abdomen. PROCEDURE PERFORMED: 1. Exploratory laparotomy. 2. Abdominal washout with closure. FINDINGS: The abdomen was widely opened after the ABThera device was removed. Other than some sero us fluid throughout the abdomen, I identified no bilious material. No succus, abscess, or stool aft er systematically running the entire GI tract. The patient was then subsequently closed. SPECIMENS: None. DESCRIPTION OF PROCEDURE: The patient's was successfully consented in the ICU. She was the n transferred from the intensive care unit to the operative suite onto the operative table. She was then connected to the anesthesia circuit. After a time-out was performed, the patient's abdomen wa s then widely prepped and draped, and the ABThera device was removed. I turned my attention first t owards systemic exploration. I retracted the patient's omentum cephalad and systematically looked i n all 4 quadrants. I identified only what appeared to be serous fluid. I identified no signs of sm all bowel or gastric leak, and no signs of any colonic leak as well. After this was done, I then ra n the entire GI tract starting at the stomach where the stomach was somewhat dilated, but I found no gastric juices and/or gastrotomy was apparent. Then ran this through the 1st, 2nd, 3rd, and 4th po rtions of the duodenum, and again found no roshni perforation. I then retracted the entire transvers e colon cephalad, identified the ligament of Treitz, ran the small bowel systematically all the way to the terminal ileum, and once again found no significant pathology. I carried my interrogation in a clockwise fashion starting at the cecal base where once again the appendix appeared normal, and t he remainder of the colon all the way down through the sigmoid colon to the rectum appeared normal w ithout any roshni perforation. Given the fact that I could not find any perforations, I then irrigat ed the abdomen with about 5 L of sterile saline with antibiotic infusion, and then turned my attenti on towards closing. Prior to closing, via separate stab incision in the right upper quadrant, I francisco javier ruslan a 19-Croatian channel drain into the left upper quadrant along the stomach itself. I then closed the fascia with running #1 PDS sutures noting excellent fascial reapproximation. I irrigated the abraham bcutaneous tissue, and closed the skin with onofre over which a nonadherent dressing and a wound VA C was placed. Patient was then transferred back to her intensive care unit bed and transferred to [facility] ICU intubated in stable condition. DRAINS: 19-Croatian round drain into the left upper quadrant. COUNTS: All counts were reported as correct x2. /[id number]/MODL
[2016-11-18 18:54] LABS: POTASSIUM 4.2 mEq/L (3.5-5.2)
[2016-11-18] MEDS: PETROLAT,WHT/MIN OIL/SOD CHL 3.5 GM OPHT.OINT EACHEYE PRN (20:50)
[2016-11-19] MEDS: NS 1,000 ML IV SCH ×2 (00:03→11:50)
[2016-11-19 01:04] LABS: POTASSIUM 4.3 mEq/L (3.5-5.2)
[2016-11-19] MEDS: AMIODARONE HCL 200 ML IV SCH ×2 (01:04→10:36)
[2016-11-19] MEDS: fentaNYL/NACL 100 ML IV SCH ×4 (01:30→21:52)
[2016-11-19 05:50] LABS: BASE EXCESS -4.8 mEq/L (-2.5-2.5); BICARBONATE 20 mEq/L (22-26); CPAP YES; MEASURED OXYGEN SATURATION 90 % (92-95); PCO2 39 mmHg (34-38); PO2 67 mmHg (65-75); TCO2 21 mEq/L (23-27)
[2016-11-19 05:51] LABS: O2 CONCENTRATIION 50 % (0-100); P/F RATIO 134 RATIO; PATIENT RATE 32; PRESSURE SUPPORT 10
[2016-11-19 05:55] LABS: % IMMATURE GRANULYOCYTES 2.2 % (0.0-1.1); ABSOLUTE IMMATURE GRANULOCYTES 0.25 10^3/uL (0.00-0.10); ABSOLUTE NRBC COUNT 0.03 10^3/uL (0-0.01); ADD DIFF? NO; ADD MORPH? NO; ADD SCAN? YES; ATYPICAL LYMPHOCYTE FLAG 0 (0-99); FRAGMENT RBC FLAG 0 (0-99); HEMATOCRIT 31.9 % (38.0-47.0); HEMOGLOBIN 10.8 g/dL (12.6-16.3); LIPEMIA HEMOLYSIS FLAG 90 (0-99); MEAN CELL HEMOGLOBIN 31.8 pg (27.9-34.1); MEAN CELL HEMOGLOBIN CONCENTR. 33.9 g/dL (32.4-36.7); MEAN CELL VOLUME 93.8 fL (81.5-99.8); MEAN PLATELET VOLUME 14.1 fL (8.7-11.7); NRBC-AUTO% 0.3 % (0.0-0.2); PLATELET CLUMPS FLAG 0 (0-99); PLATELET COUNT 55 10^3/uL (150-400); RED CELL DISTRIBUTION WIDTH 17.4 % (11.5-15.2)
[2016-11-19 05:56] LABS: LEFT SHIFT FLG 300 (0-99)
[2016-11-19] MEDS: HYDROCORTISONE 100 MG/2 ML VIAL IVP SCH ×3 (05:57→22:20)
[2016-11-19] MEDS: MEROPENEM 1 GM in NS 100 ML IV SCH ×3 (05:57→22:19)
[2016-11-19 06:15] LABS: SCAN NEGATIVE
[2016-11-19 06:16] LABS: ALANINE AMINOTRANSFERASE 79 IU/L (9-52); ALBUMIN 2.1 g/dL (3.5-5.0); ALKALINE PHOSPHATASE 110 IU/L (38-126); ANION GAP 8 mEq/L (8-16); ASPARTATE AMINOTRANSFERASE 70 IU/L (14-46); BILIRUBIN,TOTAL 2.2 mg/dL (0.1-1.4); CALCIUM 6.9 mg/dL (8.5-10.4); CARBON DIOXIDE 22 mEq/l (22-31); CHLORIDE 112 mEq/L (97-110); CREATININE 0.6 mg/dL (0.6-1.0); GLOMERULAR FILTRATION RATE > 60; GLUCOSE 191 mg/dL (70-100); MAGNESIUM 2.2 mg/dL (1.6-2.3); POTASSIUM 4.5 mEq/L (3.5-5.2); SODIUM 142 mEq/L (134-144); TOTAL PROTEIN 3.9 g/dL (6.3-8.2)
[2016-11-19 06:30] LABS: BILIRUBIN-CONJUGATED 1.6 mg/dL (0.0-0.5); BILIRUBIN-UNCONJUGATED 0.6 mg/dL (0.0-1.1)
--- NOTE | 2016-11-19 08:49 | SOAPPROG ---
SOAP Progress Note Assessment/Plan: Assessment/Plan POD#3/1 66yo F s/p ex-lap, washout and closure - Neuro: sedated on propofol, fentanyl. Attempted sedation wean today and went into a-fib - Pulm: did well with vent weans yesterday. Was attempted again this AM and went into fib, back on AC - CV: Pressors off but back in fibrillation with rates into 130s, pressures stable. Remains on amio. ? whether to re-load with amio or attempt dig vs dilt gtt - Abd: closed yesterday, EGD and re-exploration unable to find perf. KATHRYN draining serous fluid. Anticipate long ileus, will need to consider parenteral feeds in next day or so - Renal: UOP fell off somewhat overnight but almost 1000cc/24hrs. Cr remains stable. - ID: WBC 11 from 13, abd cx growing mixed margareth, bacteremia with GNRs on BS abx. Appreciate ID assistance. - Dispo: Pressors weaned, BP stable despite recurrent a-fib. Abd KATHRYN serous. Cont vent weans as tolerates. 11/17/16 14:30 11/17/16 14:32 11/17/16 14:33 11/17/16 14:34 11/19/16 08:46 11/19/16 08:49 11/19/16 08:50 Subjective: Intubated, sedated. Objective: Vital Signs Temp Pulse Resp BP Pulse Ox 37.5 C 137 H 19 133/75 H 95 11/19/16 08:00 11/19/16 08:00 11/19/16 08:00 11/19/16 08:00 11/19/16 08:00 Laboratory Results 11/19/16 05:45 11/19/16 05:45 11/18/16 11/19/16 11/20/16 05:59 05:59 05:59 Intake Total 5443 4359 Output Total 1487 1620 Balance 3985 2739 PT 20.2 SEC (12.0-15.0) H 11/16/16 13:00 INR 1.72 (0.83-1.16) H 11/16/16 13:00 ICD10 Worksheet Patient Problems: Problems Problem Status Onset Perforated abdominal viscus Acute
[2016-11-19] MEDS: PROPOFOL/EMULSION 100 ML IV SCH ×2 (09:25→19:57)
[2016-11-19] MEDS: PANTOPRAZOLE SODIUM 40 MG in NS 100 ML IV SCH ×2 (09:25→22:18)
[2016-11-19] MEDS: CHLORHEXIDINE GLUCONATE 15 ML UDL PO SCH ×2 (09:26→22:19)
[2016-11-19] MEDS: MICAFUNGIN NA 100 MG in NS 100 ML IV SCH (10:23)
[2016-11-19] MEDS: VANCOMYCIN HCL/NORMAL SALINE 250 ML IV SCH (11:30)
--- NOTE | 2016-11-19 12:11 | PDINTPN ---
[employer] Progress Note Assessment/Plan: Assessment/plan: 66 F admitted with abdominal pain and hypotension found to have free air and pus on CT. She was taken to surgery but a defect was not found despite two surgeons. She was then brought to the ICU with ongoing [id number] and septic shock from peritonitis and has required ongoing support with pressors, ventilator, and septic shock protocol. She also has a history of RA and is chronic prednisone for this, so stress dose steroids were added. * Peritonitis and septic shock- she likely had a perforated viscous at least at some point. She is covered with meropenem, micafungin, and vanco; GNRs were identified in blood cx but a specific organism has not yet been identified. ID following. EGD and OR re-exploration have been unable to identify a defect, so lilkely closed off. Abdomen closed yesterday. Pressors off today. * Afib with RVR- this occurred after her left subclavian central line was dislodged with minimal existing suture. She was without pressors briefly and her BP dropped to the 70's with resultant tachycardia. Once her pressors were resumed (after replacement of line) her HR persisted and EKG showed afib. An amiodarone drip was started after bolus. Recurred after weaning attempt today- continue drip and check echo in AM * Acute respiratory failure with hypoxemia- 2/2 septic shock. Her oxygen requirements are low for a vent, though active management of this problem was required. Failed weaning attempt today with recurrence of afib. Today is vent day #4. Retry weaning in AM. * Metabolic acidosis- resolved. HCO3 drip stopped * CORETTA- this has improved with adequate UOP. * Transaminitis- Minor elevation of LFTs which are declining with adequate BP support * Critical care time 60 minutes involving complex multiorgan involvement and failure from severe septic shock (separate from procedures) 11/18/16 13:39 11/19/16 12:07 Objective: Vital Signs Temp Pulse Resp BP Pulse Ox 37.7 C 123 H 22 H 94/64 L 95 11/19/16 12:00 11/19/16 12:00 11/19/16 12:00 11/19/16 12:00 11/19/16 12:00 Laboratory Results 11/19/16 05:45 11/19/16 05:45 11/18/16 11/19/1611/20/17 05:59 05:59 05:59 Intake Total 5472 4359 Output Total 1484 1620 Balance 3985 2739 PT 20.2 SEC (12.0-15.0) H 11/16/16 13:00 INR 1.72 (0.83-1.16) H 11/16/16 13:00 Physical Exam - Physical Exam General Appearance: no apparent distress, obese EENT: PERRL/EOMI, ET tube Neck: supple Respiratory: lungs clear, normal breath sounds, No respiratory distress, No rales Cardiac/Chest: tachycardia, irregularly irregular, No edema Abdomen: soft, No distended Skin: normal color, warm/dry Lymphatic: no adenopathy Extremities: No pedal edema Neuro/Psych: cognition abnormalities ICD10 Worksheet Patient Problems: Problems Problem Status Onset Perforated abdominal viscus Acute
[2016-11-19 12:33] LABS: POTASSIUM 4.5 mEq/L (3.5-5.2)
--- NOTE | 2016-11-19 13:51 | ECHO ---
[id number] + + [address] : : [place] [address] : : [phone] + Adult Echocardiographic Report + -+ :Name: RYDER XIAO GStudy Date: 11/19/2016 12:23 PM : : Hospital Admission Number: [id number] : :: 1950 Gender: Female Height: 65.5 in : :Age: 66 yrs Race: WH Weight: 181 lb : :Reason For Study: Eval LV Fx : : BSA: 1.9 meters 2: :History: New onset A-Fib, Septic Shock, Intubated, : :Peritonitis : + -+ MMode/2D Measurements \T\ Calculations IVSd: 0.83 cm LVIDd: 3.9 cm FS: 25.8 % MV Diam: 3.0 cm LVPWd: 0.98 cm LVIDs: 2.9 cm EDV(Teich): 67.3 ml ESV(Teich): 32.8 ml EF(Teich): 51.3 % Ao root diam: 2.7 cm ACS: 1.5 cm Normal Measurement Values: + + :LVIDd (3.5-5.7cm) IVSd (0.6-1.1cm) LVPWd (0.6-1.1cm) Aortic Root (2.0-3.7cm)Left Atrium (1.5-4.0cm): :LV Vol(d) (76-115ml) LV Vol(s) (29-48ml) Ejec Fraction (50-65%)PV Stiven (0.6- 1.2m/s) TV Stiven (0.4-1.0m/s) : :MV E Stiven (0.8-1.0m/s)MV A Stiven (0.3-1.0m/s)LVOT Stiven (0.7-1.2m/s) Asc Ao Stiven ( 0.9-1.8m/s) : + + Doppler Measurements \T\ Calculations MV E max stiven: MV V2 mean: MR max stiven: MR(RF 1 diam): 72.1 cm/sec 40.5 cm/sec 367.8 cm/sec 27.5 % MV A max stiven: MV mean P.84 mmHgMR max P.8 cm/sec MV V2 VTI: 17.1 cm 54.1 mmHg MV E/A: 1.3 MV area (1 diam): 7.1 cm2 MV Flow area(1diam): 7.1 cm2 SV(MV 1 diam): PA V2 max: TR max stiven: 121.1 ml 69.2 cm/sec 266.0 cm/sec SI(MV 1 diam): PA max P.9 mmHg TR max P.4 ml/m2 28.3 mmHg RAP systole: 5.0 mmHg RVSP(TR): 33.3 mmHg Left Ventricle The rhythm is atrial fibrillation. The left ventricle is normal in size. There is normal left ventricular wall thickness. Left ventricular systolic function is low normal. Ejection Fraction = 50-55%. Right Ventricle The right ventricular systolic function is mildly reduced. Atria The left atrial size is normal. Right atrial size is normal. Mitral Valve The mitral valve is normal in structure and function. There is no mitral valve stenosis. There is mild mitral regurgitation. Tricuspid Valve The tricuspid valve is normal in structure and function. There is mild tricuspid regurgitation. Right ventricular systolic pressure is 34mmHg. There is Doppler evidence for mild pulmonary hypertension. Aortic Valve There is mild aortic valve calcification. There is no aortic stenosis. There is no aortic insufficiency. Pulmonic Valve The pulmonic valve is normal in structure and function. There is no pulmonic valvular regurgitation. Great Vessels The aortic root is normal size. Pericardium/Pleural There is no pericardial effusion. There is a fat pad seen. Conclusion A complete two-dimensional transthoracic echocardiogram was performed (2D, M-mode, Doppler and color flow Doppler). The rhythm is atrial fibrillation. Left ventricular systolic function is low normal. Ejection Fraction = 50-55%. There is mild mitral regurgitation. There is mild tricuspid regurgitation. There is mild aortic valve calcification. There is no pericardial effusion. Right ventricular systolic pressure is 34mmHg. There is Doppler evidence for mild pulmonary hypertension. There is a fat pad seen. Final Reading Physician: Seth Watson electronically signed on 11/19/2016 01:49 PM Ordering Physician: Dalton Nuñez Performed By: Harry Miguel, NEGINCS
--- NOTE | 2016-11-19 13:56 | PCMIDPN ---
Assessment/Plan: Assessment/Plan: 1. Severe septic shock 2/2 to likely perforated viscus, peritonitis: s/p wash out x 2 (11/16, 11/18/16) -Pus found in abdominal cavity at first washout, with GPC,GNR on GS and mixed margareth on cx and now 4+ STrep anginosus (11/16/16) -s/p wash out /exploration today: no pus,stool, abscess, succus found. no perforation identified. \ -s/p EGD: no perforation noted. -Currently on Broad antimicrobial coverage: with Vanco, Merem, Micafungin. Will d/c Vanco given no mrsa/enterococcus identified. -Wait one more day for cultures do mature---if not pseudomonas identified consider tailoring down coverage to invanz. Continue micafungin. -wbc trending down. PLt down to 55. Creatinine at 0.6. -Reviewed results, plan of care with at bedside. 2. Polymicrobial Bacteremia: -secondary to above. -Cx so far with: Streptococcus anginosus and Bacteroides -Awaiting further ID of cultures. Then will adjust antimicrobials as necessary. -d/c vanco. Continue merem, micafungin. Meds vanco 1g q12- 11/17 merem 1g q8- 11/17 micafungin 100mg bobbi- 11/17 Subjective: remains in icu, intubated , sedated. low grade temps. afib. at bedside. Objective: Vital Signs Temp Pulse Resp BP Pulse Ox 37.5 C 120 H 22 H 102/64 96 11/19/16 13:00 11/19/16 13:00 11/19/16 13:00 11/19/16 13:00 11/19/16 13:00 Laboratory Results 11/19/16 05:45 11/19/16 12:20 11/18/16 11/19/16 11/20/16 05:59 05:59 05:59 Intake Total 5472 4359 Output Total 1487 1620 Balance 3989 1509 - Physical Exam General Appearance: other (sedated, intubated in icu) EENT: ET Tube Respiratory: lungs clear Cardiac/Chest: irregularly irregular Extremities: swelling Abdomen: normal bowel sounds, non-tender, soft, distended (mild), other (wound vac noted midline. jill drain on right with serosanguinous drainage) Skin: other (eccymosis left forearm. ) ICD10 Worksheet Patient Problems: Problems Problem Status Onset Perforated abdominal viscus Acute
[2016-11-19 17:24] LABS: BASE EXCESS -4.5 mEq/L (-2.5-2.5); BICARBONATE 20 mEq/L (22-26); MEASURED OXYGEN SATURATION 96 % (92-95); PCO2 35 mmHg (34-38); PO2 88 mmHg (65-75); TCO2 21 mEq/L (23-27)
[2016-11-19 17:25] LABS: ASSIST CONTROL YES; O2 CONCENTRATIION 80 % (0-100); P/F RATIO 110 RATIO; TOTAL RATE 22
[2016-11-19 17:26] LABS: END TIDAL CO2 36
[2016-11-19] MEDS ORDERED: FUROSEMIDE 20 MG/2 ML VIAL IVP ONE (17:40)
[2016-11-19] MEDS ORDERED: ALBUMIN 25% 100 ML IV ONE (17:40)
[2016-11-19 19:18] LABS: POTASSIUM 4.6 mEq/L (3.5-5.2)
[2016-11-20 04:39] LABS: ABSOLUTE NRBC COUNT 0.06 10^3/uL (0-0.01); ADD DIFF? YES; ADD MORPH? NO; ATYPICAL LYMPHOCYTE FLAG 0 (0-99); FRAGMENT RBC FLAG 0 (0-99); HEMATOCRIT 26.5 % (38.0-47.0); LIPEMIA HEMOLYSIS FLAG 90 (0-99); MEAN CELL HEMOGLOBIN 31.9 pg (27.9-34.1); NRBC-AUTO% 0.8 % (0.0-0.2); PLATELET CLUMPS FLAG 40 (0-99); PLATELET COUNT 54 10^3/uL (150-400); RED BLOOD CELL COUNT 2.82 10^6/uL (4.18-5.33); RED CELL DISTRIBUTION WIDTH 17.5 % (11.5-15.2)
[2016-11-20 04:44] LABS: LEFT SHIFT FLG 260 (0-99)
[2016-11-20 04:59] LABS: ALANINE AMINOTRANSFERASE 71 IU/L (9-52); ALBUMIN 2.1 g/dL (3.5-5.0); ALKALINE PHOSPHATASE 117 IU/L (38-126); ANION GAP 5 mEq/L (8-16); ASPARTATE AMINOTRANSFERASE 54 IU/L (14-46); BILIRUBIN,TOTAL 1.9 mg/dL (0.1-1.4); CALCIUM 6.9 mg/dL (8.5-10.4); CARBON DIOXIDE 23 mEq/l (22-31); CHLORIDE 112 mEq/L (97-110); CREATININE 0.6 mg/dL (0.6-1.0); GLOMERULAR FILTRATION RATE > 60; GLUCOSE 210 mg/dL (70-100); POTASSIUM 4.1 mEq/L (3.5-5.2); SODIUM 140 mEq/L (134-144); TOTAL PROTEIN 3.8 g/dL (6.3-8.2)
[2016-11-20 05:29] LABS: HYPOCHROMIA 1+
[2016-11-20 05:30] LABS: PLATELET ESTIMATE DECREASED (ADEQ)
[2016-11-20 05:36] LABS: ADD SCAN? NO
[2016-11-20] MEDS: MEROPENEM 1 GM in NS 100 ML IV SCH (06:24)
[2016-11-20] MEDS: HYDROCORTISONE 100 MG/2 ML VIAL IVP SCH ×3 (06:24→23:26)
[2016-11-20] MEDS: fentaNYL/NACL 100 ML IV SCH (08:24)
[2016-11-20] MEDS: PANTOPRAZOLE SODIUM 40 MG in NS 100 ML IV SCH ×2 (08:24→20:54)
[2016-11-20] MEDS: MICAFUNGIN NA 100 MG in NS 100 ML IV SCH (08:24)
[2016-11-20] MEDS: NS 1,000 ML IV SCH (08:24)
[2016-11-20] MEDS: PROPOFOL/EMULSION 100 ML IV SCH (08:24)
[2016-11-20] MEDS: CHLORHEXIDINE GLUCONATE 15 ML UDL PO SCH ×2 (08:25→20:55)
[2016-11-20] MEDS: PETROLAT,WHT/MIN OIL/SOD CHL 3.5 GM OPHT.OINT EACHEYE PRN (08:25)
--- NOTE | 2016-11-20 10:09 | PCMIDPN ---
Assessment/Plan: Assessment/Plan: * Septic shock due to peritonitis status post washout x2 without identified perforation: Overall clinically improved. Vent weaning underway. Blood culture showing growth of Streptococcus anginosus and Bacteroides fragilis with peritoneal cultures also showing growth of Streptococcus anginosus. No fungi identified to date. Will modify meropenem to ceftriaxone and metronidazole. Continue micafungin rather than transitioning to fluconazole given potential interaction with amiodarone. Await further culture data from peritoneal specimens as available. 11/20/16 10:05 11/20/16 10:12 Subjective: Intubated, sedated. Vent weaning initiated. Remains on vasopressin and Levophed for blood pressure support. Objective: Vital Signs Temp Pulse Resp BP Pulse Ox 37.7 C 100 17 156/74 H 89 L 11/20/16 10:00 11/20/16 10:00 11/20/16 10:00 11/20/16 10:00 11/20/16 10:00 Laboratory Results 11/20/16 04:25 11/20/16 04:25 11/19/16 11/20/16 11/21/16 05:59 05:59 05:59 Intake Total 4359 3956.4 Output Total 1620 2460 0 Balance 2739 1496.4 0 Meropenem # 5 Micafungin # 5 Blood cultures with growth of Streptococcus anginosus and Bacteroides fragilis Peritoneal cultures with growth of Streptococcus anginosus - Physical Exam General Appearance: non-toxic, other (Intubated, sedated) EENT: ET Tube, No scleral icterus Respiratory: coarse breath sounds Cardiac/Chest: tachycardia, other (Left subclavian line without erythema) Extremities: pedal edema (2 to 3+ bilaterally) Abdomen: distended, other (Wound VAC in place without surrounding erythema; serous drainage in KATHRYN bulb), No non-tender Skin: No rash ICD10 Worksheet Patient Problems: Problems Problem Status Onset Perforated abdominal viscus Acute
[2016-11-20] MEDS: cefTRIAXone 2 GM in D5W 50 ML IV SCH (10:39)
[2016-11-20 10:56] LABS: PCO2 VENOUS 41 mmHg (40-44); PH VENOUS BLOOD 7.36 (7.31-7.42); PO2 VENOUS 45 mmHg (35-40); TCO2 VENOUS 24 mEq/L (23-27); VEN MEASURED OXYGEN SATURATION 71 % (65-75)
[2016-11-20 10:58] LABS: END TIDAL CO2 42; O2 CONCENTRATIION 60 % (0-100); PATIENT RATE 20; SIMV YES
[2016-11-20 11:01] LABS: PRESSURE SUPPORT 10
--- NOTE | 2016-11-20 11:27 | PDINTPN ---
Director Of Vocational Training Progress Note Assessment/Plan: Assessment: 66 F admitted with abdominal pain and hypotension found to have free air and pus on CT. She was taken to surgery but a defect was not found despite two surgeons. She was then brought to the ICU with ongoing hypotension and septic shock from peritonitis and has required ongoing support with pressors, ventilator, and septic shock protocol. She also has a history of RA and is chronic prednisone for this, so stress dose steroids were added. * Peritonitis and septic shock- she likely had a perforated viscous at least at some point. She is covered with meropenem, micafungin, and vanco; GNRs were identified in blood cx but a specific organism has not yet been identified. ID following. EGD and OR re-exploration have been unable to identify a defect, so lilkely closed off. Abdomen closed yesterday. Pressors off today. * Afib with RVR- this occurred after her left subclavian central line was dislodged with minimal existing suture. She was without pressors briefly and her BP dropped to the 70's with resultant tachycardia. Once her pressors were resumed (after replacement of line) her HR persisted and EKG showed afib. An amiodarone drip was started after bolus. Recurred after weaning attempt today- continue drip and check echo in AM * Acute respiratory failure with hypoxemia- 2/2 septic shock. Her oxygen requirements are low for a vent, though active management of this problem was required. Failed weaning attempt today with recurrence of afib. Today is vent day #4. Retry weaning in AM. * Metabolic acidosis- resolved. HCO3 drip stopped * CORETTA- this has improved with adequate UOP. * Transaminitis- Minor elevation of LFTs which are declining with adequate BP support Plan: 11/20/16 11:27 Objective: Vital Signs Temp Pulse Resp BP Pulse Ox 37.5 C 92 20 148/73 H 92 11/20/16 11:00 11/20/16 11:00 11/20/16 11:00 11/20/16 11:00 11/20/16 11:00 Laboratory Results 11/20/16 04:25 11/20/16 04:25 11/19/16 11/20/16 11/21/16 05:59 05:59 05:59 Intake Total 4359 3956.4 Output Total 1620 2460 0 Balance 2739 1496.4 0 PT 20.2 SEC (12.0-15.0) H 11/16/16 13:00 INR 1.72 (0.83-1.16) H 11/16/16 13:00 Laboratory Tests 11/20/16 10:50 VBG pH 7.36 VBG HCO3 23 VBG Total CO2 24 Mixed VBG pCO2 41 Mixed VBG pO2 45 H O2 Concentration % 60 Set Respiration Rate 20 SIMV YES Tidal Volume 470 PEEP 5 Pressure Support 10 ICD10 Worksheet Patient Problems: Problems Problem Status Onset Perforated abdominal viscus Acute
--- NOTE | 2016-11-20 11:45 | PDINTPN ---
Channeling Machine Operator Progress Note Assessment/Plan: Assessment: 66 F admitted with abdominal pain and hypotension found to have free air and pus on CT. She was taken to surgery but a defect was not found despite two surgeons. She was then brought to the ICU with ongoing hypotension and septic shock from peritonitis and has required ongoing support with pressors, ventilator, and septic shock protocol. She also has a history of RA and is chronic prednisone for this, so stress dose steroids were added. * Peritonitis and septic shock- she likely had a perforated viscous at least at some point. She is covered with meropenem, micafungin, and vanco; GNRs were identified in blood cx but a specific organism has not yet been identified. ID following. EGD and OR re-exploration have been unable to identify a defect, so lilkely closed off. Abdomen closed yesterday. Pressors off yesterday, but restarted overnight. * Afib with RVR- this occurred after her left subclavian central line was dislodged with minimal existing suture. She was without pressors briefly and her BP dropped to the 70's with resultant tachycardia. Once her pressors were resumed (after replacement of line) her HR persisted and EKG showed afib. An amiodarone drip was started after bolus. Now in NSR. * Acute respiratory failure with hypoxemia- 2/2 septic shock. Her oxygen requirements are low for a vent, though active management of this problem was required. Failed weaning attempt yesterday with recurrence of afib. Today is vent day #5. * Metabolic acidosis- resolved. HCO3 drip stopped * CORETTA- this has resolved * Transaminitis- Minor elevation of LFTs which are declining with adequate BP support * Anemia: Hgb down a bit today to 9. No signs active bleeding * Hyperglycemia: BS 210 Plan: Wean down pressors. Have stopped NE, will keep PATTERN PUNCHER at 0.4 for now, decrease as tolerated but keep MAP>65. Increase PEEP and inspiratory time to improve hypoxemia, currently requiring 70% O2 on vent. Weaning oxygen as tolerated. Decrease IVF and start lasix/albumin to try to decrease oxygen needs. Start SSI. 35 minutes CC Time 11/20/16 11:46 11/21/16 09:52 Subjective: Intubated, sedated. Objective: Vital Signs Temp Pulse Resp BP Pulse Ox 37.5 C 92 20 148/73 H 92 11/20/16 11:00 11/20/16 11:00 11/20/16 11:00 11/20/16 11:00 11/20/16 11:00 Laboratory Results 11/20/16 04:25 11/20/16 04:25 11/19/16 11/20/16 11/21/16 05:59 05:59 05:59 Intake Total 4359 3956.4 Output Total 1620 2460 0 Balance 2739 1496.4 0 PT 20.2 SEC (12.0-15.0) H 11/16/16 13:00 INR 1.72 (0.83-1.16) H 11/16/16 13:00 Physical Exam - Physical Exam General Appearance: unresponsive, No alert EENT: normal ENT inspection, ET tube Neck: normal inspection Respiratory: crackles (bases), rhonchi Cardiac/Chest: regular rate, rhythm, edema (2+ anasarca) Abdomen: non-tender, soft, No normal bowel sounds (diminished) Skin: normal color, warm/dry Extremities: non-tender Neuro/Psych: No alert, No normal mood/affect, No oriented x 3 (sedated) ICD10 Worksheet Patient Problems: Problems Problem Status Onset Perforated abdominal viscus Acute
[2016-11-20] MEDS: FUROSEMIDE 40 MG/4 ML VIAL IVP SCH ×2 (12:06→20:55)
[2016-11-20] MEDS: ALBUMIN 25% 100 ML IV SCH ×2 (12:06→20:55)
[2016-11-20] MEDS ORDERED: PROTOCOL K PHOSPHATE 1 DOSE IV PRN (15:05)
[2016-11-20] MEDS ORDERED: PROTOCOL CALCIUM 1 DOSE IV PRN (15:05)
[2016-11-20] MEDS ORDERED: PROTOCOL MAGNESIUM 1 DOSE IV PRN (15:05)
[2016-11-20] MEDS ORDERED: PROTOCOL POTASSIUM 1 DOSE MISC PRN (15:05)
[2016-11-20 15:22] LABS: IONIZED CALCIUM 1.06 MMOL/L (1.12-1.30)
[2016-11-20 15:45] LABS: MAGNESIUM 2.1 mg/dL (1.6-2.3)
[2016-11-20 15:59] LABS: POTASSIUM 3.2 mEq/L (3.5-5.2)
--- NOTE | 2016-11-20 16:26 | SOAPPROG ---
SOAP Progress Note Assessment/Plan: Assessment/Plan POD#4/2 66yo F s/p ex-lap, washout and closure - Neuro: sedated on fentanyl. Still pretty snowed, will work toward waking her up - Pulm: Has gabby lower lobe atelectasis, working on recruitment. Wean as tolerates - CV: Pressors off, in and out of fib. amio gtt continuing. HDS - Abd: soft KATHRYN serosang, no bowel sounds. Anticipate ileus but can try trickle feeds tomorrow to see if she will tolerate. - Renal: UOP adequate, Cr stable - ID: WBC down to 7, BS Abx. Appreciate ID assistance. - Dispo: HDS off pressors, back in a-fib on amio. Wean vent as tolerates. 11/17/16 14:30 11/17/16 14:32 11/17/16 14:33 11/17/16 14:34 11/19/16 08:46 11/19/16 08:49 11/19/16 08:50 11/20/16 15:37 Subjective: Waking up with vent weans. Objective: Vital Signs Temp Pulse Resp BP Pulse Ox 37.5 C 91 20 132/83 H 98 11/20/16 14:00 11/20/16 14:00 11/20/16 14:00 11/20/16 14:00 11/20/16 14:00 Laboratory Results 11/20/16 04:25 11/20/16 04:25 11/19/16 11/20/16 11/21/16 05:59 05:59 05:59 Intake Total 4359 3956.4 Output Total 1620 2460 2400 Balance 2739 1496.4 -2400 PT 20.2 SEC (12.0-15.0) H 11/16/16 13:00 INR 1.72 (0.83-1.16) H 11/16/16 13:00 ICD10 Worksheet Patient Problems: Problems Problem Status Onset Perforated abdominal viscus Acute
[2016-11-20] MEDS ORDERED: INSULIN REGULAR HUMAN 100 UNIT/ML SC SCH (17:30)
[2016-11-20] MEDS: INSULIN REGULAR HUMAN 100 UNIT/ML SC SCH ×2 (18:39→23:35)
[2016-11-20] MEDS: AMIODARONE HCL 200 ML IV SCH (20:56)
[2016-11-20] MEDS ORDERED: CALCIUM GLUCONATE 50 ML IV ONE (22:34)
[2016-11-21] MEDS: POTASSIUM Cl (KCl) 50 ML IV SCH ×8 (01:12→20:58)
[2016-11-21] MEDS: ALBUMIN 25% 100 ML IV SCH ×2 (03:18→12:58)
[2016-11-21] MEDS: FUROSEMIDE 40 MG/4 ML VIAL IVP SCH ×2 (03:19→12:58)
[2016-11-21] MEDS: HYDROCORTISONE 100 MG/2 ML VIAL IVP SCH ×3 (05:30→21:06)
[2016-11-21] MEDS: INSULIN REGULAR HUMAN 100 UNIT/ML SC SCH ×3 (05:31→18:15)
[2016-11-21 05:34] LABS: BASE EXCESS 7.5 mEq/L (-2.5-2.5); BICARBONATE 31 mEq/L (22-26); IONIZED CALCIUM 1.07 MMOL/L (1.12-1.30); MEASURED OXYGEN SATURATION 97 % (92-95); O2 CONCENTRATIION 40 % (0-100); P/F RATIO 210 RATIO; PATIENT RATE 20; PCO2 39 mmHg (34-38); PO2 84 mmHg (65-75); SIMV YES; TCO2 32 mEq/L (23-27)
[2016-11-21 05:40] LABS: % IMMATURE GRANULYOCYTES 2.1 % (0.0-1.1); ABSOLUTE IMMATURE GRANULOCYTES 0.15 10^3/uL (0.00-0.10); ABSOLUTE NRBC COUNT 0.03 10^3/uL (0-0.01); ADD DIFF? NO; ADD MORPH? NO; ADD SCAN? YES; ATYPICAL LYMPHOCYTE FLAG 0 (0-99); FRAGMENT RBC FLAG 0 (0-99); HEMATOCRIT 26.2 % (38.0-47.0); LIPEMIA HEMOLYSIS FLAG 90 (0-99); MEAN CELL HEMOGLOBIN 31.7 pg (27.9-34.1); MEAN CELL HEMOGLOBIN CONCENTR. 34.4 g/dL (32.4-36.7); MEAN CELL VOLUME 92.3 fL (81.5-99.8); MEAN PLATELET VOLUME 14.7 fL (8.7-11.7); NRBC-AUTO% 0.4 % (0.0-0.2); PLATELET CLUMPS FLAG 0 (0-99); PLATELET COUNT 67 10^3/uL (150-400); RED BLOOD CELL COUNT 2.84 10^6/uL (4.18-5.33); RED CELL DISTRIBUTION WIDTH 16.5 % (11.5-15.2)
[2016-11-21 05:48] LABS: LEFT SHIFT FLG 180 (0-99)
[2016-11-21] MEDS: PETROLAT,WHT/MIN OIL/SOD CHL 3.5 GM OPHT.OINT EACHEYE PRN ×2 (05:54→17:16)
[2016-11-21 06:06] LABS: ALANINE AMINOTRANSFERASE 64 IU/L (9-52); ALBUMIN 3.1 g/dL (3.5-5.0); ALKALINE PHOSPHATASE 123 IU/L (38-126); ANION GAP 9 mEq/L (8-16); ASPARTATE AMINOTRANSFERASE 51 IU/L (14-46); BILIRUBIN,TOTAL 2.2 mg/dL (0.1-1.4); CALCIUM 7.9 mg/dL (8.5-10.4); CARBON DIOXIDE 32 mEq/l (22-31); CHLORIDE 104 mEq/L (97-110); CREATININE 0.6 mg/dL (0.6-1.0); GLOMERULAR FILTRATION RATE > 60; GLUCOSE 157 mg/dL (70-100); MAGNESIUM 1.9 mg/dL (1.6-2.3); POTASSIUM 2.9 mEq/L (3.5-5.2); SODIUM 145 mEq/L (134-144)
[2016-11-21 06:15] LABS: SCAN NEGATIVE
[2016-11-21 06:19] LABS: BILIRUBIN-CONJUGATED 1.2 mg/dL (0.0-0.5)
[2016-11-21] MEDS ORDERED: CALCIUM GLUCONATE 50 ML IV ONE (06:27)
[2016-11-21] MEDS: MICAFUNGIN NA 100 MG in NS 100 ML IV SCH (08:17)
[2016-11-21] MEDS: cefTRIAXone 2 GM in D5W 50 ML IV SCH (08:17)
[2016-11-21] MEDS: PANTOPRAZOLE SODIUM 40 MG in NS 100 ML IV SCH ×2 (08:17→20:16)
[2016-11-21] MEDS: AMIODARONE HCL 200 ML IV SCH ×2 (08:18→20:58)
[2016-11-21] MEDS: CHLORHEXIDINE GLUCONATE 15 ML UDL PO SCH ×2 (08:18→20:13)
--- NOTE | 2016-11-21 09:51 | PDINTPN ---
Billing Collections Specialist Progress Note Assessment/Plan: Assessment: 66 F admitted with abdominal pain and hypotension found to have free air and pus on CT. She was taken to surgery but a defect was not found despite two surgeons. She was then brought to the ICU with ongoing hypotension and septic shock from peritonitis and has required ongoing support with pressors, ventilator, and septic shock protocol. She also has a history of RA and is chronic prednisone for this, so stress dose steroids were added. * Peritonitis and septic shock- she likely had a perforated viscous at least at some point. She is covered with meropenem, micafungin, and vanco; GNRs were identified in blood cx but a specific organism has not yet been identified. ID following. EGD and OR re-exploration have been unable to identify a defect, so lilkely closed off. Abdomen closed 11/18. Pressors off last night. 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 Unresopnsive. * Afib with RVR- this occurred after her left subclavian central line was dislodged with minimal existing suture. She was without pressors briefly and her BP dropped to the 70's with resultant tachycardia. Once her pressors were resumed (after replacement of line) her HR persisted and EKG showed afib. An amiodarone drip was started after bolus. Now in NSR, with episodes of AF intermittantly. * Acute respiratory failure with hypoxemia- 2/2 septic shock. Her oxygen requirements are reduced today, as is VE. Unlikely to be able to extubate given acute CVA, unresponsive. * CORETTA- this has resolved * Transaminitis- Minor elevation of LFTs which are declining with adequate BP support * Anemia: Hgb stable at 9. No signs active bleeding * Hyperglycemia: BS mid-uper 100s on SSI. * Hypokalemia: New today, likely related to diuresis. On replacement Plan: Urgent neuro consult. TTE. Will start heparin if OK with neuro. Hold Fentanyl to allow for better neuro exam, restart PRN. Weaning oxygen as tolerated. Continue lasix/albumin at least through midday to try to decrease oxygen needs. 40 minutes CC Time 11/21/16 10:01 Subjective: Unresponsive Objective: Vital Signs Temp Pulse Resp BP Pulse Ox 37.5 C 142 H 20 107/76 98 11/21/16 08:21 11/21/16 09:00 11/21/16 09:00 11/21/16 09:00 11/21/16 09:00 Laboratory Results 11/21/16 05:25 11/21/16 05:25 11/20/16 11/21/16 11/22/16 05:59 05:59 05:59 Intake Total 3956.4 2017.6 Output Total 2460 7930 1020 Balance 1496.4 -5912.4 -1020 PT 20.2 SEC (12.0-15.0) H 11/16/16 13:00 INR 1.72 (0.83-1.16) H 11/16/16 13:00 CXR: Improved infiltrates. Images reviewed. CT Head: Large right subacute CVA. Images reviewed. Physical Exam - Physical Exam General Appearance: unresponsive EENT: normal ENT inspection Neck: normal inspection Respiratory: lungs clear Cardiac/Chest: regular rate, rhythm, edema (2+ edema) Abdomen: soft, No normal bowel sounds (decreased) Skin: normal color, warm/dry, other (groin/thigh and neck erythema) Extremities: normal inspection Neuro/Psych: abnormal balance wheel motion inspector II-XII (sluggish pupils), No alert, No oriented x 3 ICD10 Worksheet Patient Problems: Problems Problem Status Onset Perforated abdominal viscus Acute
--- NOTE | 2016-11-21 10:08 | PCMIDPN ---
Assessment/Plan: Assessment/Plan: 1. Severe septic shock 2/2 to likely perforated viscus, peritonitis: s/p wash out x 2 (11/16, 11/18/16) -Pus found in abdominal cavity at first washout, with GPC,GNR on GS and mixed margareth on cx. -s/p wash out /exploration today: no pus,stool, abscess, succus found. no perforation identified. -s/p EGD: no perforation noted. -Currently on Ceftriaxone, Flagyl, Micafungin. -wbc 7.1 PLt at 67.. Creatinine at 0.7. -Care coordinated with director business. -Update at bedside. 2. Polymicrobial Bacteremia: -secondary to above. -Cx so far with: Streptococcus and Bacteroides -f/u blood cx from 11/19/16 ngtd -On ceftriaxone, flagyl. 3. Erythema: - New today. Unclear if related to ceftriaxone. spoke with regarding PCN reaction and if she has taken keflex before. He states she has taken keflex before and did fine. He thinks the reaction to PCN is rash, shortness of breath but not roshni anaphylaxsis. -If continues to worsen then will change atbx regimen -care coordinated with intensitivist team. Meds ceftriaxone 2g daily-11/20/16 flagyl 500mg q8- 11/20/16 micafungin 100mg daily- 11/17 s/p vanco 1g q12- 11/17-11/19 merem 1g q8- 11/17-11/20 Subjective: REmains in icu. nonresponsive. on vent at 50% FIO2. Duiresed yesterday. at bedside. Objective: Vital Signs Temp Pulse Resp BP Pulse Ox 37.5 C 142 H 20 107/76 98 11/21/16 08:21 11/21/16 09:00 11/21/16 09:00 11/21/16 09:00 11/21/16 09:00 Laboratory Results 11/21/16 05:25 11/21/16 05:25 11/20/16 11/21/16 11/22/16 05:59 05:59 05:59 Intake Total 3956.4 2017.6 Output Total 2460 7930 1020 Balance 1496.4 -5912.4 -1020 - Physical Exam General Appearance: other (in icu. nonresponsive) EENT: ET Tube Respiratory: coarse breath sounds (mild course anteriorly) Neck: other (erythema neck upper chest) Cardiac/Chest: regular rate, rhythm Extremities: swelling Abdomen: normal bowel sounds, soft, distended, other (midline wound vac. KATHRYN drain with serosanguinous drainage. ) Pelvic Exam: cano Skin: erythema (over lower abd/upper thighs. also at neck and uppper chest. no pustules, vesicles, bullae, blisters, or desquamation noted. mild in nature. ) ICD10 Worksheet Patient Problems: Problems Problem Status Onset Perforated abdominal viscus Acute
[2016-11-21 12:46] LABS: POTASSIUM 3.1 mEq/L (3.5-5.2)
[2016-11-21 13:14] LABS: HEPARIN INDUCED ANTIBODY Negative (Negative)
--- NOTE | 2016-11-21 15:14 | SOAPPROG ---
SOAP Progress Note Assessment/Plan: Assessment/Plan POD#5/3 66yo F s/p ex-lap, washout and closure, now with new R MCA CVA - Neuro: Propofol has been off since yesterday, fentanyl since this morning. CT last evening shows large area of R MCA stroke. Neurology has been consulted. This AM, her RN reports that she has seen spontaneous R arm movement. I can get her to localize to pain with R side alone. Discussing starting anticoagulation empiricaly given high likelihood of embolic event - Pulm: Guille lower lobe atelectasis persists, remains ventilated on 40% FiO2 - CV: Pressors off, in and out of fib. amio gtt continuing. HDS - Abd: soft, KATHRYN remains serosang. NGT with scant output. Starting trickle feeds. I do anticipate ileus but want her to fail enteral feeds first given massive amt of anasarca. - ID: WBC stable at 7, on broad spectrum antbiotics. Appreciate ID assistance. - Dispo: New R MCA stroke. All other organ systems are improved. Start anticoag if cleared per neurology. Will likely need brain MRI. Prevent hypotension. 11/17/16 14:30 11/17/16 14:32 11/17/16 14:33 11/17/16 14:34 11/19/16 08:46 11/19/16 08:49 11/19/16 08:50 11/20/16 15:37 11/21/16 15:11 11/21/16 15:13 Subjective: Intubated, sedation off since early this AM. Moves R arm, at times spontaneously , does localize to pain Objective: Vital Signs Temp Pulse Resp BP Pulse Ox 37.3 C 100 22 H 155/78 H 96 11/21/16 12:00 11/21/16 15:00 11/21/16 15:00 11/21/16 15:00 11/21/16 15:00 Microbiology 11/16/16 Unknown Mycobacterial Smear (TNAIA) - Final Peritoneal Fluid - Aspirate Laboratory Results 11/21/16 05:25 11/21/16 11:55 11/20/16 11/21/16 11/22/16 05:59 05:59 05:59 Intake Total 3956.4 2017.6 Output Total 2460 7930 1570 Balance 1496.4 -5912.4 -1570 PT 20.2 SEC (12.0-15.0) H 11/16/16 13:00 INR 1.72 (0.83-1.16) H 11/16/16 13:00 ICD10 Worksheet Patient Problems: Problems Problem Status Onset CVA (cerebral vascular accident) Acute Perforated abdominal viscus Acute Respiratory failure Acute - ICD10 Problem Qualifiers (1) CVA (cerebral vascular accident) Qualifiers: CVA mechanism: C Precerebral and cerebral artery: P Laterality of affected vessel: L (2) Respiratory failure Qualifiers: Chronicity: C Respiratory failure complication: R
--- NOTE | 2016-11-21 15:32 | NEUROPROG ---
Assessment: CC: Stroke ~ HPI: This 66F patient was initially seen as an inpatient consult on 11/21/16.~ She had been admitted to [facility] on 11/16/16 for peritonitis that evolved into septic shock with some related hypotension.~ She required a bowel surgery and ID was asked to consult.~ She was placed in the ICU and intubated.~ She has been noted at times to be in afib.~ After sedation was stopped it was noted she was not moving her left side so a head CT was obtained and it showed a subacute R MCA region stroke. She is still comatose despite stopping intubation. ~ PMHx: RA on chronic prednisone, diverticulitis, chronic back pain, asthma PSHx: spinal surgery, R hip, ankle fusion ~ SHx: no tobacco FHx: no rheumatologic diseases ~ ROS: Pt denied acute fever, total vision loss, active severe chest pain, respiratory failure, total body severe rash, total bowel/bladder incontinence, psychosis, active seizures, or active bleeding ~ O: bp 139/78 P 99 RR 20~ Satting 98% on vent Temp 37.4C General: comatose Eyes: Fundoscopic exam not able to visualize optic disks CV: Heart RRR, no murmur, no carotid bruit Lungs: Clear to auscultation bilaterally, no rhonci or rales Neuro: - Mental: patient comatose not following commands, only rarely spontaneously moving right arm - Cranial Nerves: PERRL, eyes conjugate but not following commands, pt intubated - Motor/Sensory: withdraws right hand from pain weakly, otherwise no response in legs or left arm - Reflexes: B/L bic 2/4 - Gait/Coord: unable to test NIH SS: 27 but very difficult to test due to comatose status Labs: 11/21/16- CBC Hct 26.2L, Chem Na 145H K 2.9L CO2 32H BUN 34H Gluc 157 ~ Rads: 11/20/16- Head CT w/o con: subacute stroke in R MCA territory, minimal mass effect w/o shift, no bleed (I personally visualized the images on 11/21/16) ~ Assessment: 1. Septic Shock from peritonitis 2. Afib 3. Right MCA stroke likely from afib 4. RA on chronic steroids Plan: - Carotid U/S - TTE - aspirin 325mg qd for stroke prevention, recommend repeat head CT in 3 weeks and if no hemorrhage seen then recommend changing to oral anti-coagulation if afib is still a concern - Do not use heparin gtt for anti-coagulation for stroke prevention at this time as data does not support briding therapy early prior to starting oral anti- coagulation - Check LDL and H1AC - Blood pressure goal < 220/120 for 72 hour then < 140/90 but if patient has any complicatoins from high blood pressure it is OK to treat this earlier Neurology will continue to follow closely. Objective: Vital Signs Temp Pulse Resp BP Pulse Ox 37.3 C 100 22 H 155/78 H 96 11/21/16 12:00 11/21/16 15:00 11/21/16 15:00 11/21/16 15:00 11/21/16 15:00 Microbiology 11/16/16 Unknown Mycobacterial Smear (TANIA) - Final Peritoneal Fluid - Aspirate Laboratory Results 11/21/16 05:25 11/21/16 11:55 11/20/16 11/21/16 11/22/16 05:59 05:59 05:59 Intake Total 3956.4 2017.6 Output Total 2460 7930 1570 Balance 1496.4 -5912.4 -1570 PT 20.2 SEC (12.0-15.0) H 11/16/16 13:00 INR 1.72 (0.83-1.16) H 11/16/16 13:00 Allergies/Adverse Reactions: Penicillins Allergy (Verified 11/16/16 09:09)
[2016-11-21] MEDS: ASPIRIN RECTAL 300 MG SUPP PR SCH (16:28)
[2016-11-21 19:15] LABS: POTASSIUM 2.9 mEq/L (3.5-5.2)
[2016-11-21 19:23] LABS: HEMOGLOBIN A1C 7.3 % (4.0-6.0)
[2016-11-22] MEDS: INSULIN REGULAR HUMAN 100 UNIT/ML SC SCH ×4 (00:09→17:36)
[2016-11-22 00:43] LABS: POTASSIUM 3.3 mEq/L (3.5-5.2)
[2016-11-22] MEDS: POTASSIUM Cl (KCl) 50 ML IV SCH ×6 (01:03→20:41)
[2016-11-22 04:35] LABS: IONIZED CALCIUM 1.04 MMOL/L (1.12-1.30)
[2016-11-22 04:36] LABS: % IMMATURE GRANULYOCYTES 1.8 % (0.0-1.1); ABSOLUTE IMMATURE GRANULOCYTES 0.17 10^3/uL (0.00-0.10); ABSOLUTE NRBC COUNT 0.04 10^3/uL (0-0.01); ADD DIFF? NO; ADD MORPH? NO; ADD SCAN? YES; ATYPICAL LYMPHOCYTE FLAG 0 (0-99); FRAGMENT RBC FLAG 20 (0-99); HEMATOCRIT 28.8 % (38.0-47.0); HEMOGLOBIN 9.8 g/dL (12.6-16.3); LIPEMIA HEMOLYSIS FLAG 90 (0-99); MEAN CELL HEMOGLOBIN 31.6 pg (27.9-34.1); MEAN CELL VOLUME 92.9 fL (81.5-99.8); MEAN PLATELET VOLUME 13.8 fL (8.7-11.7); NRBC-AUTO% 0.4 % (0.0-0.2); PLATELET CLUMPS FLAG 0 (0-99); PLATELET COUNT 85 10^3/uL (150-400)
[2016-11-22 04:37] LABS: LEFT SHIFT FLG 120 (0-99)
[2016-11-22] MEDS ORDERED: CALCIUM GLUCONATE 50 ML IV ONE (04:37)
[2016-11-22 04:54] LABS: ALANINE AMINOTRANSFERASE 78 IU/L (9-52); ALBUMIN 2.8 g/dL (3.5-5.0); ALKALINE PHOSPHATASE 189 IU/L (38-126); ANION GAP 8 mEq/L (8-16); ASPARTATE AMINOTRANSFERASE 82 IU/L (14-46); BILIRUBIN,TOTAL 3.2 mg/dL (0.1-1.4); CALCIUM 7.8 mg/dL (8.5-10.4); CARBON DIOXIDE 34 mEq/l (22-31); CHLORIDE 105 mEq/L (97-110); CHOLESTEROL 79 mg/dL (140-220); CHOLESTEROL/HDL RATIO 6.58 RATIO (1.00-4.44); CREATININE 0.6 mg/dL (0.6-1.0); GLOMERULAR FILTRATION RATE > 60; GLUCOSE 187 mg/dL (70-100); HIGH DENSITY LIPOPROTEIN 12 mg/dL (40-85); LOW DENSITY LIPOPROTEIN 36 mg/dL (80-100); NON-HIGH DENSITY LIPOPROTEIN 67 mg/dL (90-129); POTASSIUM 3.7 mEq/L (3.5-5.2); SODIUM 147 mEq/L (134-144); TOTAL PROTEIN 4.7 g/dL (6.3-8.2); TRIGLYCERIDE 159 mg/dL (35-135); VERY LOW DENSITY LIPOPROTEINS 31 mg/dL (8-25)
[2016-11-22 04:58] LABS: SCAN POSITIVE
[2016-11-22 05:03] LABS: BILIRUBIN-CONJUGATED 1.8 mg/dL (0.0-0.5); BILIRUBIN-UNCONJUGATED 1.4 mg/dL (0.0-1.1)
[2016-11-22] MEDS ORDERED: POTASSIUM Cl (KCl) 50 ML IV ONE (05:03)
[2016-11-22] MEDS: HYDROCORTISONE 100 MG/2 ML VIAL IVP SCH ×3 (05:04→21:26)
[2016-11-22 05:06] LABS: HYPOCHROMIA 1+; LARGE PLATELETS PRESENT; POLYCHROMASIA 1+
[2016-11-22 05:07] LABS: PLATELET ESTIMATE DECREASED (ADEQ)
--- NOTE | 2016-11-22 08:38 | ECHO ---
[id number] + + [address] : : [place] [address] : : [phone] + + Adult Echocardiographic Report + ------+ :Name: RYDER XIAO GStudy Date: 11/21/2016 03:31 PM : : Hospital Admission Number: [id number] Curly n: 249: :: 1950 Gender: Female Height: 66 in : :Age: 66 yrs Race: WH Weight: 177 lb : :Reason For Study: Ischemic stroke : : BSA: 1.9 meters 2 : + ------+ Pericardium/Pleural There is a fat pad seen. Conclusion Limited 2-D echo. No obvious thrombus visualized with less than optimal images. Final Reading Physician: Mili Bruno signed on 11/22/2016 08:36 AM Ordering Physician: Dagoberto Lau Performed By: Annika Monsalve, CS
[2016-11-22] MEDS: MICAFUNGIN NA 100 MG in NS 100 ML IV SCH (09:33)
[2016-11-22] MEDS: cefTRIAXone 2 GM in D5W 50 ML IV SCH (09:33)
[2016-11-22] MEDS: PANTOPRAZOLE SODIUM 40 MG in NS 100 ML IV SCH ×2 (09:33→20:23)
[2016-11-22] MEDS: ASPIRIN RECTAL 300 MG SUPP PR SCH (09:34)
[2016-11-22] MEDS: CHLORHEXIDINE GLUCONATE 15 ML UDL PO SCH ×2 (09:34→20:17)
[2016-11-22] MEDS ORDERED: K PHOS 10 MMOL in D5W 250 ML IV ONE (12:00)
--- NOTE | 2016-11-22 13:12 | PDINTPN ---
Landfill Attendant Progress Note Assessment/Plan: Assessment: 66 F admitted with abdominal pain and hypotension found to have free air and pus on CT. She was taken to surgery but a defect was not found despite two surgeons. She was then brought to the ICU with ongoing hypotension and septic shock from peritonitis and has required ongoing support with pressors, ventilator, and septic shock protocol. She also has a history of RA and is chronic prednisone for this, so stress dose steroids were added. * Peritonitis and septic shock- she likely had a perforated viscous at least at some point. She is covered with meropenem, micafungin, and vanco; WBC normal, but still with fevers. ID following. EGD and OR re-exploration have been unable to identify a defect, so likely closed off. Abdomen closed 11/18. Off pressors. 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 Unresponsive, likely due to acute CVA with edema , as well as critical illness from peritonitis, AF. * Afib with RVR- this occurred after her left subclavian central line was dislodged with minimal existing suture. She was without pressors briefly and her BP dropped to the 70's with resultant tachycardia. Once her pressors were resumed (after replacement of line) her HR persisted and EKG showed afib. An amiodarone drip was started after bolus. Now in NSR, with episodes of AF intermittently. * Acute respiratory failure with hypoxemia- 2/2 septic shock. Her oxygen requirements are reduced today, as is VE. Unlikely to be able to extubate given acute CVA, unresponsive. * CORETTA- this has resolved * Transaminitis- Minor elevation of LFTs which are declining with adequate BP support * Anemia: Hgb stable at 9. No signs active bleeding * Hyperglycemia: BS mid-uper 100s on SSI. * Hypokalemia: New today, likely related to diuresis. On replacement Plan: Continue ASA. Hold Fentanyl to allow for better neuro exam, restart PRN. Weaning oxygen as tolerated. Repeat lasix/albumin. Follow BSs on SSI. 11/22/16 13:14 Subjective: Unresponsive. Objective: Vital Signs Temp Pulse Resp BP Pulse Ox 38.4 C H 96 22 H 148/76 H 97 11/22/16 12:00 11/22/16 12:00 11/22/16 12:00 11/22/16 12:00 11/22/16 12:00 Microbiology 11/16/16 Unknown Mycobacterial Smear (TANIA) - Final Peritoneal Fluid - Aspirate Laboratory Results 11/22/16 04:28 11/22/16 04:28 11/21/16 11/22/16 11/23/16 05:59 05:59 05:59 Intake Total 2017.6 2912 Output Total 7930 4895 310 Balance -5912.4 -1983 -310 PT 20.2 SEC (12.0-15.0) H 11/16/16 13:00 INR 1.72 (0.83-1.16) H 11/16/16 13:00 ECHO: No atrial clot. Physical Exam - Physical Exam General Appearance: alert EENT: normal ENT inspection Neck: normal inspection Respiratory: lungs clear Cardiac/Chest: regular rate, rhythm, edema (2+) Abdomen: normal bowel sounds, non-tender (no grimacing), soft Skin: normal color, warm/dry Extremities: normal inspection Neuro/Psych: No alert, No oriented x 3 ICD10 Worksheet Patient Problems: Problems Problem Status Onset CVA (cerebral vascular accident) Acute Perforated abdominal viscus Acute Respiratory failure Acute
[2016-11-22] MEDS ORDERED: ALBUMIN 25% 100 ML IV ONE (13:17)
--- NOTE | 2016-11-22 13:56 | PCMIDPN ---
Assessment/Plan: #Severe Septic shock secondary to presumed bowel perf and subsequent peritonitis s/p washouts. Generally patient is stable from an ID standpoint, recent large right MCA stroke primary set back. #Fever: temp trending up since 11/22. WBC normal, could consider central fever #Bacteremia: GNR not ID'd by PCR, awaiting ID #ARF -improved # mild hepatitis likely related to sepsis, sl worse today, continue to monitor #thrombocytopenia Recommendations 1) continue ceftriaxone, micafungin, metronidazole 2) Requested w/u of LF GNR from peritoneal sample 3) If fever continues, will repeat blood cx and assess if need to repeat CT scan abdomen/pelvis Microbiology 11/19 blood cx (2) NGTD 11/16 blood cx (08/31) bacteroides 11/16 peritoneal gram stain positive for 3+GPC, 2+ GNR; streptococcus and GNR LF ; no yeast ID to date meds, Abx #8 micafungin 100mg IV daily #8 ceftriaxone 2gm IV daily #3 metronidazole 500mg IV q8h, #2 Subjective: Noted events yesterday of observed CVA. Objective: Vital Signs Temp Pulse Resp BP Pulse Ox 38.4 C H 96 22 H 148/76 H 97 11/22/16 12:00 11/22/16 12:00 11/22/16 12:00 11/22/16 12:00 11/22/16 12:00 Microbiology 11/16/16 Unknown Mycobacterial Smear (TANIA) - Final Peritoneal Fluid - Aspirate Laboratory Results 11/22/16 04:28 11/22/16 04:28 11/21/16 11/22/16 11/23/16 05:59 05:59 05:59 Intake Total 2017.6 2912 Output Total 7930 4895 390 Balance -5912.4 -1983 -390 - Physical Exam General Appearance: other (Sedated) EENT: ET Tube, NG Tube (On tube feeds) Respiratory: coarse breath sounds Neck: supple Cardiac/Chest: tachycardia Extremities: pedal edema (Anasarca) Abdomen: soft, other (Midline wound VAC in place, KATHRYN drain right lower quadrant with serosanguineous fluid) Pelvic Exam: cano Skin: other (Pinkness on chest and bilateral inguinal area most consistent with plethora, not drug reaction), No rash - Line/s other Lines: other (Left subclavian central catheter), No drainage, No erythema ICD10 Worksheet Patient Problems: Problems Problem Status Onset CVA (cerebral vascular accident) Acute Perforated abdominal viscus Acute Respiratory failure Acute
[2016-11-22] MEDS: AMIODARONE HCL 200 ML IV SCH ×2 (14:03→15:30)
[2016-11-22] MEDS: ACETAMINOPHEN 650 MG/20.3 ML UDCUP TUBE PRN (14:04)
[2016-11-22] MEDS: FUROSEMIDE 40 MG/4 ML VIAL IVP SCH ×2 (14:04→23:08)
[2016-11-22 14:23] LABS: POTASSIUM 3.4 mEq/L (3.5-5.2)
[2016-11-22] MEDS ORDERED: ALBUMIN 25% 200 ML IV ONE (16:10)
[2016-11-22] MEDS: ACETAMINOPHEN 650 MG SUPP PR PRN (16:28)
--- NOTE | 2016-11-22 16:37 | NEUROPROG ---
Assessment: CC: Stroke Narrative Summary: This 66F patient was initially seen as an inpatient consult on 11/21/16.~ She had been admitted to [facility] on 11/16/16 for peritonitis that evolved into septic shock with some related hypotension.~ She required a bowel surgery and ID was asked to consult.~ She was placed in the ICU and intubated.~ She has been noted at times to be in afib.~ After sedation was stopped it was noted she was not moving her left side so a head CT was obtained and it showed a subacute R MCA region stroke. She is still comatose despite stopping intubation. HPI: F/U on 11/22/16. TTE and carotid U/S showed no significant findings. Pt has not yet woken up. No new problems. Right arm still withdraws from pain. PMHx: RA on chronic prednisone, diverticulitis, chronic back pain, asthma PSHx: spinal surgery, R hip, ankle fusion SHx: no tobacco FHx: no rheumatologic diseases Labs: 11/21/16- LDL 36, H1AC 7.3 Rads: 11/20/16- Head CT w/o con: subacute stroke in R MCA territory, minimal mass effect w/o shift, no bleed (I personally visualized the images on 11/21/16) 11/21/16- Carotid U/S: no hemodynamically significant stenosis 11/21/16- TTE: no cardiac thrombus Assessment: 1. Septic Shock from peritonitis 2. Afib 3. Right MCA stroke likely from afib 4. RA on chronic steroids 5. Coma: likely from combination of sepsis, recent sedation, and recent R MCA stroke Plan: - Continue supportive care, likely her coma will improve and I would expect her to wake up as a R MCA stroke does not generally cause coma - Continue aspirin 325mg qd for stroke prevention, recommend repeat head CT in 3 weeks and if no hemorrhage seen then recommend changing to oral anti- coagulation if afib is still a concern - Do not use heparin gtt for anti-coagulation for stroke prevention at this time as data does not support briding therapy early prior to starting oral anti- coagulation - LDL Goal < 70 (36) - H1AC Goal < 7.0 (7.3) - Blood pressure goal < 220/120 for 24 hour then < 140/90 but if patient has any complicatoins from high blood pressure it is OK to treat this earlier 35 min spent with patient and her sister, majority of time spent counseling on stroke prognosis. Objective: Vital Signs Temp Pulse Resp BP Pulse Ox 38.9 C H 128 H 24 H 82/48 L 98 11/22/16 16:00 11/22/16 16:00 11/22/16 16:00 11/22/16 16:00 11/22/16 16:00 Microbiology 11/16/16 Unknown Mycobacterial Smear (TANIA) - Final Peritoneal Fluid - Aspirate Laboratory Results 11/22/16 04:28 11/22/16 13:58 11/21/16 11/22/16 11/23/16 05:59 05:59 05:59 Intake Total 2017.6 2912 Output Total 7930 4895 1550 Balance -5912.4 -1983 -1550 PT 20.2 SEC (12.0-15.0) H 11/16/16 13:00 INR 1.72 (0.83-1.16) H 11/16/16 13:00 Allergies/Adverse Reactions: Penicillins Allergy (Verified 11/16/16 09:09)
[2016-11-22] MEDS ORDERED: AMIODARONE HCL 100 ML IV ONE (16:45)
--- NOTE | 2016-11-22 17:06 | SOAPPROG ---
SOAP Progress Note Assessment/Plan: Assessment: 66yo female s/p Ex-lap x 2 for perforation, now with R sided CVA. s/p septic shock. Tolerating trickle feeds, off sedation still nonresponsive. PE intubated, nonresponsive to stimuli Chest CTA B/L Abdomen midline VAC, no surrounding erythema or signs of significant drainage. KATHRYN drain with clear to serosag drainage, abdomen soft. Plan: continue supportive care, wound vac. will discuss with Dr Arreola. 11/22/16 17:03 Objective: Vital Signs Temp Pulse Resp BP Pulse Ox 38.9 C H 128 H 24 H 82/48 L 98 11/22/16 16:00 11/22/16 16:00 11/22/16 16:00 11/22/16 16:00 11/22/16 16:00 Microbiology 11/16/16 Unknown Mycobacterial Smear (TANIA) - Final Peritoneal Fluid - Aspirate Laboratory Results 11/22/16 04:28 11/22/16 13:58 11/21/16 11/22/16 11/23/16 05:59 05:59 05:59 Intake Total 2017.6 2912 Output Total 7930 4895 1640 Balance -5912.4 -1983 -1640 PT 20.2 SEC (12.0-15.0) H 11/16/16 13:00 INR 1.72 (0.83-1.16) H 11/16/16 13:00 ICD10 Worksheet Patient Problems: Problems Problem Status Onset CVA (cerebral vascular accident) Acute Perforated abdominal viscus Acute Respiratory failure Acute
[2016-11-22 19:10] LABS: POTASSIUM 2.8 mEq/L (3.5-5.2)
[2016-11-22] MEDS ORDERED: DILTIAZEM 25 MG/5 ML VIAL IVP ONE (21:30)
[2016-11-22] MEDS: DILTIAZEM 125 MG in D5W 125 ML IV SCH (21:36)
[2016-11-23] MEDS: INSULIN REGULAR HUMAN 100 UNIT/ML SC SCH ×5 (00:32→23:36)
[2016-11-23 00:45] LABS: POTASSIUM 2.7 mEq/L (3.5-5.2)
[2016-11-23] MEDS: POTASSIUM Cl (KCl) 50 ML IV SCH ×7 (00:50→23:53)
[2016-11-23] MEDS: ACETAMINOPHEN 650 MG SUPP PR PRN ×2 (01:22→12:18)
[2016-11-23 04:22] LABS: IONIZED CALCIUM 0.98 MMOL/L (1.12-1.30)
[2016-11-23 04:23] LABS: ABSOLUTE NRBC COUNT 0.03 10^3/uL (0-0.01); ADD DIFF? YES; ADD MORPH? NO; ATYPICAL LYMPHOCYTE FLAG 0 (0-99); FRAGMENT RBC FLAG 20 (0-99); HEMATOCRIT 25.8 % (38.0-47.0); HEMOGLOBIN 8.7 g/dL (12.6-16.3); LIPEMIA HEMOLYSIS FLAG 80 (0-99); MEAN CELL HEMOGLOBIN 31.5 pg (27.9-34.1); MEAN CELL HEMOGLOBIN CONCENTR. 33.7 g/dL (32.4-36.7); MEAN CELL VOLUME 93.5 fL (81.5-99.8); NRBC-AUTO% 0.4 % (0.0-0.2); PLATELET CLUMPS FLAG 0 (0-99); PLATELET COUNT 89 10^3/uL (150-400); RED BLOOD CELL COUNT 2.76 10^6/uL (4.18-5.33)
[2016-11-23 04:25] LABS: ADD SCAN? NO; LEFT SHIFT FLG 140 (0-99)
[2016-11-23] MEDS ORDERED: CALCIUM GLUCONATE 50 ML IV ONE (04:27)
[2016-11-23] MEDS: VASOPRESSIN/DEXTROSE 250 ML IV SCH (04:37)
[2016-11-23 04:54] LABS: ALANINE AMINOTRANSFERASE 72 IU/L (9-52); ALBUMIN 2.9 g/dL (3.5-5.0); ALKALINE PHOSPHATASE 212 IU/L (38-126); ANION GAP 10 mEq/L (8-16); ASPARTATE AMINOTRANSFERASE 72 IU/L (14-46); BILIRUBIN,TOTAL 3.7 mg/dL (0.1-1.4); CALCIUM 7.7 mg/dL (8.5-10.4); CARBON DIOXIDE 37 mEq/l (22-31); CHLORIDE 102 mEq/L (97-110); CREATININE 0.5 mg/dL (0.6-1.0); GLOMERULAR FILTRATION RATE > 60; GLUCOSE 267 mg/dL (70-100); MAGNESIUM 1.9 mg/dL (1.6-2.3); SODIUM 149 mEq/L (134-144); TOTAL PROTEIN 4.3 g/dL (6.3-8.2)
[2016-11-23] MEDS: AMIODARONE HCL 200 ML IV SCH ×2 (05:00→15:00)
[2016-11-23 05:16] LABS: HYPOCHROMIA 2+; PLATELET ESTIMATE DECREASED (ADEQ); POLYCHROMASIA 1+
[2016-11-23 05:17] LABS: TARGET CELLS 1+; TOXIC GRANULATION PRESENT
[2016-11-23] MEDS: HYDROCORTISONE 100 MG/2 ML VIAL IVP SCH ×3 (05:26→23:38)
[2016-11-23 05:44] LABS: BILIRUBIN-CONJUGATED 1.8 mg/dL (0.0-0.5); BILIRUBIN-UNCONJUGATED 1.9 mg/dL (0.0-1.1)
[2016-11-23] MEDS: ACETAMINOPHEN 650 MG/20.3 ML UDCUP TUBE PRN ×2 (08:13→20:58)
[2016-11-23] MEDS: cefTRIAXone 2 GM in D5W 50 ML IV SCH (08:13)
[2016-11-23] MEDS: MICAFUNGIN NA 100 MG in NS 100 ML IV SCH (08:14)
[2016-11-23] MEDS: FUROSEMIDE 40 MG/4 ML VIAL IVP SCH (08:14)
[2016-11-23] MEDS: CHLORHEXIDINE GLUCONATE 15 ML UDL PO SCH ×2 (09:00→20:58)
[2016-11-23] MEDS: ASPIRIN RECTAL 300 MG SUPP PR SCH (09:00)
--- NOTE | 2016-11-23 09:17 | SOAPPROG ---
SOAP Progress Note Assessment/Plan: Assessment/Plan POD#7/4 66yo F s/p ex-lap, washout and closure, now with new R MCA CVA - Neuro: Sedation has been off for a while, still only localizing to pain on R side. Nrueology following, on ASA. - Pulm: Remains on vent, settings have been stable. - CV: Off pressors, when back in fib usually hypotensive and requires vaso. Intermittently on dilt to assist with keeping in NSR - Abd: soft, nondistended, BS+, tolerating tube feeds at goal and having bowel movements. Diuresing through her KATHRYN which remains serosang. c Diff pending but doubtful clinically - ID: Fevering, likely multifactorial (sepsis, stroke), WBC normal. Continue broad spectrum abx. - Dispo: about the same. Cont vent, supportive care. 11/17/16 14:30 11/17/16 14:32 11/17/16 14:33 11/17/16 14:34 11/19/16 08:46 11/19/16 08:49 11/19/16 08:50 11/20/16 15:37 11/21/16 15:11 11/21/16 15:13 11/23/16 09:13 Subjective: Intubated, localizes to pain on R side Objective: Vital Signs Temp Pulse Resp BP Pulse Ox 38.5 C H 83 24 H 133/65 H 98 11/23/16 06:00 11/23/16 08:05 11/23/16 06:00 11/23/16 06:00 11/23/16 08:05 Laboratory Results 11/23/16 04:10 11/23/16 04:10 11/22/16 11/23/16 11/24/16 05:59 05:59 05:59 Intake Total 2912 3581.7 Output Total 4801 5544 Balance -1982 -1961.3 PT 20.2 SEC (12.0-15.0) H 11/16/16 13:00 INR 1.72 (0.83-1.16) H 11/16/16 13:00 ICD10 Worksheet Patient Problems: Problems Problem Status Onset CVA (cerebral vascular accident) Acute Perforated abdominal viscus Acute Respiratory failure Acute - ICD10 Problem Qualifiers (1) CVA (cerebral vascular accident) Qualifiers: CVA mechanism: C Precerebral and cerebral artery: P Laterality of affected vessel: L (2) Respiratory failure Qualifiers: Chronicity: C Respiratory failure complication: R
[2016-11-23] MEDS ORDERED: INSULIN REGULAR HUMAN 100 UNIT/ML SC SCH (10:00)
--- NOTE | 2016-11-23 11:09 | PDINTPN ---
Credit Professional Progress Note Assessment/Plan: Assessment: 66 F admitted with abdominal pain and hypotension found to have free air and pus on CT. She was taken to surgery but a defect was not found despite two surgeons. She was then brought to the ICU with ongoing hypotension and septic shock from peritonitis and has required ongoing support with pressors, ventilator, and septic shock protocol. She also has a history of RA and is chronic prednisone for this, so stress dose steroids were added. * Peritonitis and septic shock- she likely had a perforated viscous at least at some point. She is covered with meropenem, micafungin, and vanco; WBC normal, but still with fevers. ID following. EGD and OR re-exploration have been unable to identify a defect, so likely closed off. Abdomen closed 11/18. Off pressors. 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 Unresponsive, likely due to acute CVA with edema , as well as critical illness from peritonitis, AF. * Afib with RVR- this occurred after her left subclavian central line was dislodged with minimal existing suture. She was without pressors briefly and her BP dropped to the 70's with resultant tachycardia. Once her pressors were resumed (after replacement of line) her HR persisted and EKG showed afib. An amiodarone drip was started after bolus. Now in NSR, with episodes of AF with RVR @150 intermittently, improved with PRN Cardizem * Acute respiratory failure with hypoxemia- 2/2 septic shock, bibasilar consolidation/pneumonia. Her oxygen requirements are fairly low at FIO2 40%, but she's on PEEP 12 cmH2O. Unlikely to be able to extubate given acute CVA, unresponsive. * CORETTA- this has resolved * Transaminitis- Minor elevation of LFTs which are declining with adequate BP support * Anemia: Hgb fairly stable over the last few days. No signs active bleeding * Hyperglycemia: BS 200s on SSI. * Hypokalemia: New today, likely related to diuresis. On replacement Plan: Continue ASA. Hold Fentanyl to allow for better neuro exam, restart PRN. Weaning oxygen as tolerated. Continue lasix/albumin. Continue amiodorone. Cardizem PRN. Increase SSI. Increase TF flushes, follow Na. 11/23/16 11:17 Subjective: Unresponsive Objective: Vital Signs Temp Pulse Resp BP Pulse Ox 38.3 C 80 24 H 151/66 H 98 11/23/16 09:31 11/23/16 09:31 11/23/16 09:31 11/23/16 09:31 11/23/16 09:31 Laboratory Results 11/23/16 04:10 11/23/16 04:10 11/22/16 11/23/16 11/24/16 05:59 05:59 05:59 Intake Total 2912 3581.7 Output Total 4895 5544 Balance -1982 -1961.3 PT 20.2 SEC (12.0-15.0) H 11/16/16 13:00 INR 1.72 (0.83-1.16) H 11/16/16 13:00 CXR: Improved LLL. Images reviewed. Physical Exam - Physical Exam General Appearance: alert, no apparent distress EENT: normal ENT inspection Neck: normal inspection Respiratory: lungs clear, normal breath sounds Cardiac/Chest: edema (1+), irregularly irregular Abdomen: normal bowel sounds, non-tender, soft Skin: normal color, warm/dry Extremities: normal inspection, other (Cool R foot, good capillary refill) Neuro/Psych: No alert, No oriented x 3 ICD10 Worksheet Patient Problems: Problems Problem Status Onset CVA (cerebral vascular accident) Acute Perforated abdominal viscus Acute Respiratory failure Acute
[2016-11-23] MEDS ORDERED: K PHOS 10 MMOL in D5W 250 ML IV ONE (12:00)
[2016-11-23] MEDS: PANTOPRAZOLE SODIUM 40 MG in NS 100 ML IV SCH ×2 (12:19→20:58)
[2016-11-23 13:35] LABS: POTASSIUM 2.5 mEq/L (3.5-5.2)
[2016-11-23] MEDS ORDERED: POTASSIUM CL 20 MEQ TAB PO ONE (14:28)
--- NOTE | 2016-11-23 18:47 | PCMIDPN ---
Assessment/Plan: Assessment/Plan: * Septic shock due to peritonitis status post washout x2 without identified perforation with concomitant Streptococcus anginosus/Bacteroides bacteremia: Continue ceftriaxone, metronidazole and micafungin. If fevers persist, will plan CT scan of abdomen and pelvis tomorrow to assess for intra-abdominal abscess. * Fever: Considerations include intra-abdominal abscess versus drug fever versus central fever after MCA stroke. Follow-up blood cultures as available. * Rash: Appearance not typical for drug rash although reaction to beta-lactam possible. Current findings are not limiting therefore will continue same antibiotic regimen. Reluctant to change to carbapenem given ongoing evaluation for possibility of seizures with potential to lower seizure threshold. 11/23/16 18:44 11/23/16 18:47 Subjective: Intubated, sedated. EEG being performed this p.m.. Persistent rash over upper chest and back. Objective: Vital Signs Temp Pulse Resp BP Pulse Ox 37.7 C 80 24 H 121/63 H 98 11/23/16 18:00 11/23/16 18:00 11/23/16 18:00 11/23/16 18:00 11/23/16 18:00 Laboratory Results 11/23/16 04:10 11/22/16 11/23/16 11/24/16 05:59 05:59 05:59 Intake Total 2912 3581.7 1947 Output Total 4895 5544 1750 -1982 -1961.3 197 Ceftriaxone # 4 Metronidazole # 3 Micafungin # 8 Tm 38.5 Blood cultures 11/23/2016 pending - Physical Exam General Appearance: other (Intubated, sedated) EENT: other (No conjunctival injection), No scleral icterus Respiratory: coarse breath sounds Abdomen: non-tender, distended (Mild), other (Wound VAC in place without surrounding erythema; KATHRYN with serous output) Skin: rash (Confluent erythema over upper chest/neck with faint erythema over back; no macular papular element; mild faint erythema over abdominal wall) ICD10 Worksheet Patient Problems: Problems Problem Status Onset CVA (cerebral vascular accident) Acute Perforated abdominal viscus Acute Respiratory failure Acute
[2016-11-23 18:51] LABS: POTASSIUM 3.2 mEq/L (3.5-5.2)
--- NOTE | 2016-11-23 19:55 | NEUROPROG ---
Assessment: CC: Stroke Narrative Summary: This 66F patient was initially seen as an inpatient consult on 11/21/16.~ She had been admitted to [facility] on 11/16/16 for peritonitis that evolved into septic shock with some related hypotension.~ She required a bowel surgery and ID was asked to consult.~ She was placed in the ICU and intubated.~ She has been noted at times to be in afib.~ After sedation was stopped it was noted she was not moving her left side so a head CT was obtained and it showed a subacute R MCA region stroke. She is still comatose despite stopping intubation. F/U on 11/22/16. TTE and carotid U/S showed no significant findings. Pt has not yet woken up. No new problems. Right arm still withdraws from pain. HPI: F/U on 11/23/16. No significant new clinical changes over night. Pt more vigorous to withdrawal form pain in right arm and when eyes held open seems to focus at times on stimuli. Still not following commands. EEG shows no seizures. No new problems. PMHx: RA on chronic prednisone, diverticulitis, chronic back pain, asthma PSHx: spinal surgery, R hip, ankle fusion SHx: no tobacco FHx: no rheumatologic diseases Labs: 11/21/16- LDL 36, H1AC 7.3 Rads: 11/20/16- Head CT w/o con: subacute stroke in R MCA territory, minimal mass effect w/o shift, no bleed (I personally visualized the images on 11/21/16) 11/21/16- Carotid U/S: no hemodynamically significant stenosis 11/21/16- TTE: no cardiac thrombus 11/23/16- EEG: no seizures, generalized slowing, PLED's, and right sided decreased amplitude (likely from underlying stroke) Assessment: 1. Septic Shock from peritonitis 2. Afib 3. Right MCA stroke likely from afib 4. RA on chronic steroids 5. Coma: likely from combination of sepsis, recent sedation, and recent R MCA stroke Plan: - Continue supportive care, likely her coma will improve and I would expect her to wake up as a R MCA stroke does not generally cause coma - Continue aspirin 325mg qd for stroke prevention, recommend repeat head CT 3 weeks after 11/21/16 and if no hemorrhage seen then recommend changing to oral anti-coagulation if afib is still a concern - Do not use heparin gtt for anti-coagulation for stroke prevention at this time as data does not support briding therapy early prior to starting oral anti- coagulation - LDL Goal < 70 (36) - H1AC Goal < 7.0 (7.3) - Blood pressure goal < 140/90 - Head CT tomorrow am to ensure no hemorrhagic conversion or edema 35 min spent with patient and her sister, majority of time spent counseling on stroke prognosis and plan of care. Objective: Vital Signs Temp Pulse Resp BP Pulse Ox 37.8 C 86 24 H 152/66 H 92 11/23/16 19:00 11/23/16 19:00 11/23/16 19:00 11/23/16 19:00 11/23/16 19:00 Laboratory Results 11/23/16 04:10 11/23/16 18:00 11/22/16 11/23/16 11/24/16 05:59 05:59 05:59 Intake Total 2912 3581.7 1947 Output Total 4895 5544 1750 Balance -1982 -1961.3 197 PT 20.2 SEC (12.0-15.0) H 11/16/16 13:00 INR 1.72 (0.83-1.16) H 11/16/16 13:00 Allergies/Adverse Reactions: Penicillins Allergy (Verified 11/16/16 09:09)
--- NOTE | 2016-11-23 20:39 | CPEEG ---
[f rep st] ELECTROENCEPHALOGRAM DATE OF STUDY: 11/23/2016 DATE OF INTERPRETATION: 11/23/2016 This is an EEG performed for approximately 30 minutes at the bedside in the ICU of a comatose patient. The EEG shows bilateral alpha range frequency at 8-9 Hz with slight slowing. The right side shows decreased amplitude versus the left side. There are intermittent sharp waves, likely due to underlying PLEDs. There is no seizure activity visualized. There is no epileptiform activity. IMPRESSION: Overall abnormal EEG consistent with generalized slowing and periodic lateralized epileptiform discharges supportive of an underlying encephalopathy. The decreased amplitude on the right side could be due to her underlying stroke. There is no evidence of any active seizure activity at this time. /[id number]/MODL MTDD
[2016-11-23] MEDS: PETROLAT,WHT/MIN OIL/SOD CHL 3.5 GM OPHT.OINT EACHEYE PRN (20:58)
[2016-11-24] MEDS: NOREPINEPHRINE/NS 500 ML IV SCH ×3 (00:06→19:06)
[2016-11-24] MEDS: POTASSIUM Cl (KCl) 50 ML IV SCH ×4 (00:29→20:26)
[2016-11-24] MEDS: ACETAMINOPHEN 650 MG/20.3 ML UDCUP TUBE PRN ×3 (00:30→12:35)
[2016-11-24] MEDS: AMIODARONE HCL 200 ML IV SCH ×3 (02:02→23:26)
[2016-11-24 04:53] LABS: IONIZED CALCIUM 1.01 MMOL/L (1.12-1.30)
[2016-11-24 05:10] LABS: HEMATOCRIT 36.6 % (38.0-47.0); HEMOGLOBIN 12.1 g/dL (12.6-16.3); MEAN CELL HEMOGLOBIN CONCENTR. 33.1 g/dL (32.4-36.7); MEAN CELL VOLUME 93.8 fL (81.5-99.8); RED BLOOD CELL COUNT 3.9 10^6/uL (4.18-5.33); RED CELL DISTRIBUTION WIDTH 19.5 % (11.5-15.2)
[2016-11-24 05:16] LABS: CALCIUM 7.4 mg/dL (8.5-10.4); CARBON DIOXIDE 32 mEq/l (22-31); CHLORIDE 106 mEq/L (97-110); CREATININE 0.6 mg/dL (0.6-1.0); GLOMERULAR FILTRATION RATE > 60; GLUCOSE 161 mg/dL (70-100); SODIUM 147 mEq/L (134-144)
[2016-11-24 05:24] LABS: ANION GAP 9 mEq/L (8-16); POTASSIUM 3.9 mEq/L (3.5-5.2)
[2016-11-24] MEDS: INSULIN REGULAR HUMAN 100 UNIT/ML SC SCH ×6 (05:50→22:28)
[2016-11-24] MEDS ORDERED: CALCIUM GLUCONATE 50 ML IV ONE (05:56)
[2016-11-24] MEDS ORDERED: POTASSIUM Cl (KCl) 50 ML IV ONE (05:57)
[2016-11-24] MEDS: HYDROCORTISONE 100 MG/2 ML VIAL IVP SCH ×3 (06:02→22:30)
[2016-11-24] MEDS ORDERED: LOPERAMIDE HCL 1 MG/5 ML UDCUP PO ONE (08:11)
[2016-11-24] MEDS: cefTRIAXone 2 GM in D5W 50 ML IV SCH (08:35)
[2016-11-24] MEDS: ASPIRIN RECTAL 300 MG SUPP PR SCH (08:35)
[2016-11-24] MEDS: PANTOPRAZOLE SODIUM 40 MG in NS 100 ML IV SCH ×2 (08:35→20:28)
[2016-11-24] MEDS: PETROLAT,WHT/MIN OIL/SOD CHL 3.5 GM OPHT.OINT EACHEYE PRN (08:36)
[2016-11-24] MEDS: CHLORHEXIDINE GLUCONATE 15 ML UDL PO SCH ×2 (08:36→20:26)
[2016-11-24] MEDS: MICAFUNGIN NA 100 MG in NS 100 ML IV SCH (08:50)
--- NOTE | 2016-11-24 09:40 | SOAPPROG ---
SOAP Progress Note Assessment/Plan: Assessment/Plan POD#8/5 66yo F s/p ex-lap, washout and closure, now with new R MCA CVA - Neuro: Sedation remains off for >48hrs, still no improvement in neuro status. CT this AM shows no new findings. Will defer brain MRI to neurology but may help shed more light on her persistent comatose status. - Pulm: Remains on vent, settings have been stable. - CV: Intermittently in and out of A-fib, intermittently on vasopressin. Still on amio - Abd: soft, nondistended, tolerating tube feeds with watery stools ( c Diff neg ) KATHRYN has changed character but doesnt appear to be feeds or bilious. KUB overnight did not show any free air. Will add loperamide to help with watery stools. - ID: Continues to fever, broad spectum abx. - Dispo: Would expect her to have woken up more by now. Cont supportive care, will attempt to slow GI transit to limit watery stools. Discussed my concerns with at bedside today, he remains cautiously optimistic 11/17/16 14:30 11/17/16 14:32 11/17/16 14:33 11/17/16 14:34 11/19/16 08:46 11/19/16 08:49 11/19/16 08:50 11/20/16 15:37 11/21/16 15:11 11/21/16 15:13 11/23/16 09:13 11/24/16 09:34 Subjective: Intubated, still localizes to pain only on R. No purposeful voluntary movement Objective: Vital Signs Temp Pulse Resp BP Pulse Ox 39.8 C H 114 H 36 H 99/57 L 97 11/24/16 09:00 11/24/16 09:00 11/24/16 09:00 11/24/16 09:00 11/24/16 09:00 Microbiology 11/19/16 06:00 Blood Culture - Final Blood 11/19/16 06:41 Blood Culture - Final Blood Laboratory Results 11/24/16 04:44 11/24/16 04:44 11/23/16 11/24/16 11/25/16 05:59 05:59 05:59 Intake Total 3581.7 4098 Output Total 5544 3260 Balance -1962.3 838 PT 20.2 SEC (12.0-15.0) H 11/16/16 13:00 INR 1.72 (0.83-1.16) H 11/16/16 13:00 ICD10 Worksheet Patient Problems: Problems Problem Status Onset CVA (cerebral vascular accident) Acute Perforated abdominal viscus Acute Respiratory failure Acute - ICD10 Problem Qualifiers (1) CVA (cerebral vascular accident) Qualifiers: CVA mechanism: C Precerebral and cerebral artery: P Laterality of affected vessel: L (2) Respiratory failure Qualifiers: Chronicity: C Respiratory failure complication: R
[2016-11-24] MEDS: VASOPRESSIN/DEXTROSE 250 ML IV SCH ×3 (10:42→23:26)
--- NOTE | 2016-11-24 11:07 | PCMIDPN ---
Assessment/Plan: #Severe Septic shock secondary to abdominal catastrophe from bowel perf and subsequent peritonitis s/p washouts. Course complicated by large R MCA stroke. Persistent high Fever, WBC low, DDX drug fever, central fever, lack of control intra-abdominal infection. No rash today --CT abdomen, if negative will change ceftriaxone --continue ceftriaxone, micafungin, metronidazole #Bacteroides / s. anginosis bacteremia: follow up blood cx are negative --covered w ceftriaxone/flagyl #ARF -resolved # mild hepatitis likely related to sepsis, sl worse today, continue to monitor #thrombocytopenia - improved Microbiology 11/23 blood cx (2) NGTD 11/19 blood cx (2) Neg 11/16 blood cx (2/) bacteroides 11/16 peritoneal gram stain positive for 3+GPC, 2+ GNR; streptococcus and e coli ; no yeast ID to date meds, Abx #10 micafungin 100mg IV daily #10 ceftriaxone 2gm IV daily #5 metronidazole 500mg IV q8h, #4 Subjective: fever curve trending up, MAP trending down Objective: Vital Signs Temp Pulse Resp BP Pulse Ox 39.8 C H 112 H 28 H 86/64 L 97 11/24/16 09:00 11/24/16 10:00 11/24/16 10:00 11/24/16 10:00 11/24/16 09:00 Microbiology 11/19/16 06:00 Blood Culture - Final Blood 11/19/16 06:41 Blood Culture - Final Blood Laboratory Results 11/24/16 04:44 11/24/16 04:44 11/23/16 11/24/16 11/25/16 05:59 05:59 05:59 Intake Total 3581.7 4098 Output Total 5544 3260 Balance -1962.3 838 - Physical Exam General Appearance: other (nonresponive) EENT: pale conjunctiva, ET Tube, NG Tube, dry mucous membranes Respiratory: coarse breath sounds Cardiac/Chest: tachycardia Extremities: pedal edema Abdomen: soft, distended Skin: diaphoresis, pallor, other (skin mottling), No rash - Line/s other Lines: other (L subclavian), No drainage, No erythema - Time Spent With Patient Time Spent with Patient: greater than 35 minutes (coordination of care with Dr. Peña and Dr. Arreola) Time Spent with Patient: Greater than 35 minutes spent on this patients care, greater than 50% of time spent counseling, educating, and coordinating care regarding the above mentioned plan. ICD10 Worksheet Patient Problems: Problems Problem Status Onset CVA (cerebral vascular accident) Acute Perforated abdominal viscus Acute Respiratory failure Acute
--- NOTE | 2016-11-24 11:20 | PDINTPN ---
[employer] Progress Note Assessment/Plan: Assessment: 66 F admitted with abdominal pain and hypotension found to have free air and pus on CT. She was taken to surgery but a defect was not found despite two surgeons. She was then brought to the ICU with ongoing hypotension and septic shock from peritonitis and has required ongoing support with pressors, ventilator, and septic shock protocol. She also has a history of RA and is chronic prednisone for this, so stress dose steroids were added. * Peritonitis and septic shock- she likely had a perforated viscous at least at some point. She is covered with meropenem, micafungin, and vanco; WBC normal, but still with fevers. ID following. EGD and OR re-exploration have been unable to identify a defect, so likely closed off. Abdomen closed 11/18. Back on pressors, ? persistent intra-abdominal infection. 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 Unresponsive, likely due to acute CVA with edema , as well as critical illness from peritonitis, AF. * Afib with RVR- this occurred after her left subclavian central line was dislodged with minimal existing suture. She was without pressors briefly and her BP dropped to the 70's with resultant tachycardia. Once her pressors were resumed (after replacement of line) her HR persisted and EKG showed afib. An amiodarone drip was started after bolus. Now in NSR, with episodes of AF with RVR @150 intermittently despite amio IV, improved with PRN Cardizem, but now with hypotension, so may not tolerate. * Acute respiratory failure with hypoxemia- 2/2 septic shock, bibasilar consolidation/pneumonia. Her oxygen requirements are fairly low at FIO2 40%, but she's on PEEP 12 cmH2O. Unlikely to be able to extubate given acute CVA, unresponsive. * CORETTA- this has resolved. Hypernatremia slightly improved with increased free H2O * Transaminitis- Minor elevation of LFTs which are declining with adequate BP support * Anemia: Hgb fairly stable over the last few days. No signs active bleeding * Hyperglycemia: BS upper 100s on increased SSI. * Hypokalemia: Improved today, likely related to diuresis. On replacement * Cool Right leg: ? arterial thrombosis due to AF. * Hypotension: Developed today. ? due to abdominal infection. On [employer], BP still a bit low and urine output falling. Plan: Continue ASA. CT Abdomen. US LE to evaluate for arterial thrombosis. Weaning oxygen as tolerated. May give some albumin if remains hypotensive, low urine output. Start NE for the same reason. Continue amiodarone, ? change to PO. Cardizem PRN. Continue SSI. Increase Continue to follow Na. 40 minutes CC Time responding to hypotension, low urine output, AF with RVR. 11/24/16 11:51 Subjective: Intubated, unresponsive Objective: Vital Signs Temp Pulse Resp BP Pulse Ox 39.8 C H 112 H 28 H 86/64 L 97 11/24/16 09:00 11/24/16 10:00 11/24/16 10:00 11/24/16 10:00 11/24/16 09:00 Microbiology 11/19/16 06:00 Blood Culture - Final Blood 11/19/16 06:41 Blood Culture - Final Blood Laboratory Results 11/24/16 04:44 11/24/16 04:44 11/23/16 11/24/16 11/25/16 05:59 05:59 05:59 Intake Total 3581.7 4098 Output Total 5544 3260 Balance -1962.3 838 PT 20.2 SEC (12.0-15.0) H 11/16/16 13:00 INR 1.72 (0.83-1.16) H 11/16/16 13:00 CT Head: Stable infarct, no other acute changes. Images reviewed. Physical Exam - Physical Exam General Appearance: No alert EENT: normal ENT inspection Neck: normal inspection Respiratory: lungs clear, normal breath sounds, respiratory distress (tachypneic ) Cardiac/Chest: edema (2+), irregularly irregular Abdomen: normal bowel sounds, non-tender Skin: normal color, warm/dry Extremities: normal inspection Neuro/Psych: No alert, No normal mood/affect, No oriented x 3 ICD10 Worksheet Patient Problems: Problems Problem Status Onset CVA (cerebral vascular accident) Acute Perforated abdominal viscus Acute Respiratory failure Acute
[2016-11-24] MEDS ORDERED: IOPAMIDOL (ISOVUE-300) 100 ML BTL IV ONE (13:11)
[2016-11-24] MEDS ORDERED: ALBUMIN 5% 500 ML IV ONE (14:16)
--- NOTE | 2016-11-24 15:50 | NEUROPROG ---
Assessment: CC: Stroke Narrative Summary: This 66F patient was initially seen as an inpatient consult on 11/21/16.~ She had been admitted to [facility] on 11/16/16 for peritonitis that evolved into septic shock with some related hypotension.~ She required a bowel surgery and ID was asked to consult.~ She was placed in the ICU and intubated.~ She has been noted at times to be in afib.~ After sedation was stopped it was noted she was not moving her left side so a head CT was obtained and it showed a subacute R MCA region stroke. She is still comatose despite stopping intubation. F/U on 11/22/16. TTE and carotid U/S showed no significant findings. Pt has not yet woken up. No new problems. Right arm still withdraws from pain. F/U on 11/23/16. No significant new clinical changes over night. Pt more vigorous to withdrawal form pain in right arm and when eyes held open seems to focus at times on stimuli. Still not following commands. EEG shows no seizures. No new problems. HPI: F/U 11/24/16. Head CT stable w/o bleed or edema. Pt still comatose. Fever worse today so possibly worsening sepsis. No new complaints. PMHx: RA on chronic prednisone, diverticulitis, chronic back pain, asthma PSHx: spinal surgery, R hip, ankle fusion SHx: no tobacco FHx: no rheumatologic diseases Labs: 11/21/16- LDL 36, H1AC 7.3 Rads: 11/20/16- Head CT w/o con: subacute stroke in R MCA territory, minimal mass effect w/o shift, no bleed (I personally visualized the images on 11/21/16) 11/21/16- Carotid U/S: no hemodynamically significant stenosis 11/21/16- TTE: no cardiac thrombus 11/23/16- EEG: no seizures, generalized slowing, PLED's, and right sided decreased amplitude (likely from underlying stroke) 11/24/16- Head CT: stable right MCA CVA, no new bleed or edema Assessment: 1. Septic Shock from peritonitis: seems worse given high fever 2. Afib 3. Right MCA stroke likely from afib 4. RA on chronic steroids 5. Coma: likely from combination of sepsis, recent sedation, and recent R MCA stroke Plan: - Continue supportive care as long as sepsis will resolve, I feel her prognosis is more related to her sepsis than to her R MCA CVA at this time - Continue aspirin 325mg qd for stroke prevention, recommend repeat head CT after 12/12/16 and if no hemorrhage seen then recommend changing to oral anti- coagulation if afib is still a concern - Do not use heparin gtt for anti-coagulation for stroke prevention at this time as data does not support briding therapy early prior to starting oral anti- coagulation - LDL Goal < 70 (36) - H1AC Goal < 7.0 (7.3) - Blood pressure goal < 140/90 35 min spent with patient, father, and her sister, majority of time spent counseling on stroke prognosis and plan of care including as it relates to sepsis. Objective: Vital Signs Temp Pulse Resp BP Pulse Ox 40.1 C H 106 H 27 H 86/69 L 96 11/24/16 14:00 11/24/16 15:00 11/24/16 15:00 11/24/16 15:00 11/24/16 15:00 Microbiology 11/19/16 06:00 Blood Culture - Final Blood 11/19/16 06:41 Blood Culture - Final Blood Laboratory Results 11/24/16 04:44 11/24/16 04:44 11/23/16 11/24/16 11/25/16 05:59 05:59 05:59 Intake Total 3581.7 4098 Output Total 5544 3260 770 Balance -1962.3 838 -770 PT 20.2 SEC (12.0-15.0) H 11/16/16 13:00 INR 1.72 (0.83-1.16) H 11/16/16 13:00 Allergies/Adverse Reactions: Penicillins Allergy (Verified 11/16/16 09:09)
[2016-11-24] MEDS ORDERED: ALBUMIN 25% 200 ML IV ONE (16:20)
[2016-11-24 17:56] LABS: POTASSIUM 3.4 mEq/L (3.5-5.2)
[2016-11-24] MEDS: MEROPENEM 1 GM in NS 100 ML IV SCH (22:30)
[2016-11-25 00:08] LABS: POTASSIUM 3.1 mEq/L (3.5-5.2)
[2016-11-25] MEDS: INSULIN REGULAR HUMAN 100 UNIT/ML SC SCH ×6 (02:37→21:41)
[2016-11-25] MEDS: POTASSIUM Cl (KCl) 50 ML IV SCH ×5 (05:00→11:38)
[2016-11-25 05:19] LABS: IONIZED CALCIUM 1.02 MMOL/L (1.12-1.30)
[2016-11-25] MEDS ORDERED: CALCIUM GLUCONATE 50 ML IV ONE (05:28)
[2016-11-25 05:59] LABS: POTASSIUM 3.3 mEq/L (3.5-5.2)
[2016-11-25] MEDS: HYDROCORTISONE 100 MG/2 ML VIAL IVP SCH ×3 (06:15→21:33)
[2016-11-25] MEDS: MEROPENEM 1 GM in NS 100 ML IV SCH ×3 (06:44→21:33)
[2016-11-25] MEDS: ACETAMINOPHEN 650 MG/20.3 ML UDCUP TUBE PRN ×2 (06:51→12:09)
[2016-11-25] MEDS: DILTIAZEM 125 MG in D5W 125 ML IV SCH ×2 (08:32→21:33)
[2016-11-25 08:41] LABS: ABSOLUTE NRBC COUNT 0.16 10^3/uL (0-0.01); ADD DIFF? YES; ATYPICAL LYMPHOCYTE FLAG 0 (0-99); FRAGMENT RBC FLAG 40 (0-99); HEMATOCRIT 28.5 % (38.0-47.0); HEMOGLOBIN 9.5 g/dL (12.6-16.3); LIPEMIA HEMOLYSIS FLAG 80 (0-99); MEAN CELL HEMOGLOBIN 31.1 pg (27.9-34.1); MEAN CELL HEMOGLOBIN CONCENTR. 33.3 g/dL (32.4-36.7); MEAN CELL VOLUME 93.4 fL (81.5-99.8); PLATELET CLUMPS FLAG 60 (0-99); PLATELET COUNT 121 10^3/uL (150-400); RED BLOOD CELL COUNT 3.05 10^6/uL (4.18-5.33); RED CELL DISTRIBUTION WIDTH 19.9 % (11.5-15.2)
[2016-11-25 08:46] LABS: ADD MORPH? NO; ADD SCAN? NO; LEFT SHIFT FLG 300 (0-99)
[2016-11-25 09:01] LABS: ALANINE AMINOTRANSFERASE 51 IU/L (9-52); ALBUMIN 2.9 g/dL (3.5-5.0); ALKALINE PHOSPHATASE 117 IU/L (38-126); ANION GAP 17 mEq/L (8-16); ASPARTATE AMINOTRANSFERASE 56 IU/L (14-46); BILIRUBIN,TOTAL 2.2 mg/dL (0.1-1.4); CALCIUM 7.7 mg/dL (8.5-10.4); CARBON DIOXIDE 23 mEq/l (22-31); CHLORIDE 109 mEq/L (97-110); CREATININE 0.8 mg/dL (0.6-1.0); GLOMERULAR FILTRATION RATE > 60; GLUCOSE 113 mg/dL (70-100); POTASSIUM 3.3 mEq/L (3.5-5.2); SODIUM 149 mEq/L (134-144); TOTAL PROTEIN 4.2 g/dL (6.3-8.2)
[2016-11-25 09:10] LABS: BILIRUBIN-CONJUGATED 1.4 mg/dL (0.0-0.5); BILIRUBIN-UNCONJUGATED 0.8 mg/dL (0.0-1.1)
--- NOTE | 2016-11-25 09:29 | PCMIDPN ---
Assessment/Plan: #Severe Septic shock secondary to abdominal catastrophe from bowel perf and subsequent peritonitis s/p washouts. Course complicated by large R MCA stroke and AF with RVR. Fever persists, possible sl decrease. DDX drug fever, central fever, lack of control intra-abdominal infection, although no abscess yesterday on CT scan. Continue to monitor, can take days for fever due to drug to resolve (ceftriaxone dc 11/24). 11/23 Cdiff neg --continue meropenem, micafungin #Bacteroides / s. anginosis bacteremia: follow up blood cx are negative --covered w meropenem #ARF -resolved # mild hepatitis likely related to sepsis, sl worse today, continue to monitor #thrombocytopenia - improved Microbiology 11/23 blood cx (2) NGTD 11/19 blood cx (2) Neg 11/16 blood cx (/) bacteroides 11/16 peritoneal gram stain positive for 3+GPC, 2+ GNR; streptococcus and e coli (pratt-S); no yeast ID to date meds, Abx #11 micafungin 100mg IV daily #11 meropenem 1gm IV q8h #[address] Peña Subjective: back in AF with RVR not weaning from vent Objective: Vital Signs Temp Pulse Resp BP Pulse Ox 38.7 C H 134 H 24 H 90/62 L 98 11/25/16 08:00 11/25/16 08:32 11/25/16 08:30 11/25/16 08:00 11/25/16 08:30 Microbiology 11/19/16 06:00 Blood Culture - Final Blood 11/19/16 06:41 Blood Culture - Final Blood Laboratory Results 11/25/16 08:25 11/25/16 05:10 11/24/16 11/25/16 11/26/16 05:59 05:59 05:59 Intake Total 4098 4716 Output Total 3260 3825 Balance 838 891 Gen: non responsive on vent, anasarca L subclavian c/d/i ETT, OGT CV irr irr tachy Chest: course bs on vent Abdomen: Soft, rectal tube full of stool, midline incision without erythema, R KATHRYN drain serous with a bit of debris Ext: edema skin: no rash Neuro unresponsive ICD10 Worksheet Patient Problems: Problems Problem Status Onset CVA (cerebral vascular accident) Acute Perforated abdominal viscus Acute Respiratory failure Acute
[2016-11-25 09:36] LABS: PLATELET ESTIMATE DECREASED (ADEQ)
[2016-11-25 09:37] LABS: LARGE PLATELETS PRESENT; TOXIC GRANULATION PRESENT
[2016-11-25 09:39] LABS: POLYCHROMASIA 1+; SCHISTOCYTES 1+
[2016-11-25] MEDS: MICAFUNGIN NA 100 MG in NS 100 ML IV SCH (09:39)
[2016-11-25] MEDS: ASPIRIN RECTAL 300 MG SUPP PR SCH (09:42)
[2016-11-25] MEDS: CHLORHEXIDINE GLUCONATE 15 ML UDL PO SCH ×2 (09:43→20:30)
[2016-11-25] MEDS: PANTOPRAZOLE SODIUM 40 MG in NS 100 ML IV SCH ×2 (10:43→20:31)
--- NOTE | 2016-11-25 10:57 | SOAPPROG ---
SOAP Progress Note Assessment/Plan: Assessment: abd soft/ still sedated/ ? dvt/ afebrile/ off pressors/ nsr, just converted from afib Plan:continue vent 11/25/16 10:55 Objective: Vital Signs Temp Pulse Resp BP Pulse Ox 38.6 C H 91 24 H 137/59 H 97 11/25/16 10:18 11/25/16 10:18 11/25/16 10:18 11/25/16 10:18 11/25/16 10:18 Microbiology 11/19/16 06:00 Blood Culture - Final Blood 11/19/16 06:41 Blood Culture - Final Blood Laboratory Results 11/25/16 08:25 11/25/16 05:10 11/24/16 11/25/16 11/26/16 05:59 05:59 05:59 Intake Total 4098 4716 Output Total 3260 3825 Balance 838 891 PT 20.2 SEC (12.0-15.0) H 11/16/16 13:00 INR 1.72 (0.83-1.16) H 11/16/16 13:00 ICD10 Worksheet Patient Problems: Problems Problem Status Onset CVA (cerebral vascular accident) Acute Perforated abdominal viscus Acute Respiratory failure Acute
[2016-11-25] MEDS: AMIODARONE HCL 200 ML IV SCH ×2 (11:28→22:51)
--- NOTE | 2016-11-25 11:28 | PDINTPN ---
Last Code Striper Progress Note Assessment/Plan: Assessment: 66 F admitted with abdominal pain and hypotension found to have free air and pus on CT. She was taken to surgery but a defect was not found despite two surgeons. She was then brought to the ICU with ongoing hypotension and septic shock from peritonitis and has required ongoing support with pressors, ventilator, and septic shock protocol. She also has a history of RA and is chronic prednisone for this, so stress dose steroids were added. * Peritonitis and septic shock- she likely had a perforated viscous at least at some point. She is covered with meropenem, micafungin, and vanco; WBC normal, but still with fevers. ID following. EGD and OR re-exploration have been unable to identify a defect, so likely closed off. Abdomen closed 11/18. Back on pressors, ? persistent intra-abdominal infection. On Meropenem, Micafungin, Vanco * R MCA CVA: Likely due to AF. Unresponsive, likely due to acute CVA with edema , as well as critical illness from peritonitis, AF. * Afib with RVR- this occurred after her left subclavian central line was dislodged with minimal existing suture. She was without pressors briefly and her BP dropped to the 70's with resultant tachycardia. Once her pressors were resumed (after replacement of line) her HR persisted and EKG showed afib. An amiodarone drip was started after bolus. Now in NSR, with episodes of AF with RVR @150 intermittently despite amio IV, improved with PRN Cardizem, but now with hypotension, so may not tolerate. * Acute respiratory failure with hypoxemia- 2/2 septic shock, bibasilar consolidation/pneumonia. Her oxygen requirements are fairly low at FIO2 40%, but she's on PEEP 12 cmH2O. Unlikely to be able to extubate given acute CVA, unresponsive. * CORETTA- this has resolved. Hypernatremia persists with diuresis * Transaminitis- Minor elevation of LFTs which are declining with adequate BP support * Anemia: Hgb fairly stable over the last few days. No signs active bleeding * Hyperglycemia: BS upper 100s on increased SSI. * Hypokalemia: Persists today, likely related to diuresis. On replacement * Cool Right leg: Improved. US negative. * Hypotension: Developed 11/24. ? due to abdominal infection. Got albumin yesterday, on MAT MAKER, NE at 3, BP better, urine output good. Plan: Continue ASA. Weaning oxygen as tolerated. May give some albumin if remains hypotensive, low urine output. Continue amiodarone, ? change to PO. Cardizem PRN. Continue SSI. Continue to follow Na on increased free H2O via TF flushes. 11/25/16 11:36 Subjective: Intubated, unresponsive. Objective: Vital Signs Temp Pulse Resp BP Pulse Ox 38.5 C H 99 24 H 119/49 L 97 11/25/16 11:00 11/25/16 11:00 11/25/16 11:00 11/25/16 11:00 11/25/16 11:00 Microbiology 11/19/16 06:00 Blood Culture - Final Blood 11/19/16 06:41 Blood Culture - Final Blood Laboratory Results 11/25/16 08:25 11/25/16 05:10 11/24/16 11/25/16 11/26/16 05:59 05:59 05:59 Intake Total 4098 4716 Output Total 3260 3825 Balance 838 891 PT 20.2 SEC (12.0-15.0) H 11/16/16 13:00 INR 1.72 (0.83-1.16) H 11/16/16 13:00 Physical Exam - Physical Exam General Appearance: No alert, No no apparent distress EENT: normal ENT inspection Neck: normal inspection Respiratory: lungs clear, normal breath sounds Cardiac/Chest: regular rate, rhythm, No edema Abdomen: normal bowel sounds, non-tender Skin: normal color, warm/dry Extremities: normal inspection Neuro/Psych: No alert ICD10 Worksheet Patient Problems: Problems Problem Status Onset CVA (cerebral vascular accident) Acute Perforated abdominal viscus Acute Respiratory failure Acute
[2016-11-25] MEDS: ASPIRIN 325 MG TAB TUBE SCH (12:31)
--- NOTE | 2016-11-25 13:06 | NEUROPROG ---
Assessment: CC: Stroke Narrative Summary: This 66F patient was initially seen as an inpatient consult on 11/21/16.~ She had been admitted to [facility] on 11/16/16 for peritonitis that evolved into septic shock with some related hypotension.~ She required a bowel surgery and ID was asked to consult.~ She was placed in the ICU and intubated.~ She has been noted at times to be in afib.~ After sedation was stopped it was noted she was not moving her left side so a head CT was obtained and it showed a subacute R MCA region stroke. She is still comatose despite stopping intubation. F/U on 11/22/16. TTE and carotid U/S showed no significant findings. Pt has not yet woken up. No new problems. Right arm still withdraws from pain. F/U on 11/23/16. No significant new clinical changes over night. Pt more vigorous to withdrawal form pain in right arm and when eyes held open seems to focus at times on stimuli. Still not following commands. EEG shows no seizures. No new problems. F/U 11/24/16. Head CT stable w/o bleed or edema. Pt still comatose. Fever worse today so possibly worsening sepsis. No new complaints. HPI: F/U 11/25/16. Fever improved today but still present. No changes in neurologic status and pt still comatose. No new complaints. Less pressors needed today. PMHx: RA on chronic prednisone, diverticulitis, chronic back pain, asthma PSHx: spinal surgery, R hip, ankle fusion SHx: no tobacco FHx: no rheumatologic diseases Labs: 11/21/16- LDL 36, H1AC 7.3 Rads: 11/20/16- Head CT w/o con: subacute stroke in R MCA territory, minimal mass effect w/o shift, no bleed (I personally visualized the images on 11/21/16) 11/21/16- Carotid U/S: no hemodynamically significant stenosis 11/21/16- TTE: no cardiac thrombus 11/23/16- EEG: no seizures, generalized slowing, PLED's, and right sided decreased amplitude (likely from underlying stroke) 11/24/16- Head CT: stable right MCA CVA, no new bleed or edema Assessment: 1. Septic Shock from peritonitis 2. Afib 3. Right MCA stroke likely from afib 4. RA on chronic steroids 5. Coma: likely from combination of sepsis, recent sedation, and recent R MCA stroke Plan: - Continue supportive care as long as sepsis will resolve, I feel her prognosis is more related to her sepsis than to her R MCA CVA at this time - Continue aspirin 325mg qd for stroke prevention, recommend repeat head CT after 12/12/16 and if no hemorrhage seen then recommend changing to oral anti- coagulation if afib is still a concern - Do not use heparin gtt for anti-coagulation for stroke prevention at this time as data does not support briding therapy early prior to starting oral anti- coagulation - LDL Goal < 70 (36) - H1AC Goal < 7.0 (7.3) - Blood pressure goal < 140/90 35 min spent with patient and her [id number], majority of time spent counseling on stroke prognosis and likely future ICU care plans. Objective: Vital Signs Temp Pulse Resp BP Pulse Ox 38.6 C H 98 29 H 118/53 L 96 11/25/16 12:00 11/25/16 12:00 11/25/16 12:00 11/25/16 12:00 11/25/16 12:00 Microbiology 11/19/16 06:00 Blood Culture - Final Blood 11/19/16 06:41 Blood Culture - Final Blood Laboratory Results 11/25/16 08:25 11/25/16 05:10 11/24/16 11/25/16 11/26/16 05:59 05:59 05:59 Intake Total 4098 4716 Output Total 3260 3825 Balance 838 891 PT 20.2 SEC (12.0-15.0) H 11/16/16 13:00 INR 1.72 (0.83-1.16) H 11/16/16 13:00 Allergies/Adverse Reactions: Penicillins Allergy (Verified 11/16/16 09:09)
[2016-11-25 14:07] LABS: POTASSIUM 3.9 mEq/L (3.5-5.2)
[2016-11-25] MEDS ORDERED: POTASSIUM Cl (KCl) 50 ML IV ONE (14:09)
[2016-11-25] MEDS: VASOPRESSIN/DEXTROSE 250 ML IV SCH (17:29)
[2016-11-25 18:56] LABS: POTASSIUM 4.1 mEq/L (3.5-5.2)
[2016-11-26] MEDS: PETROLAT,WHT/MIN OIL/SOD CHL 3.5 GM OPHT.OINT EACHEYE PRN (00:09)
[2016-11-26 00:57] LABS: POTASSIUM 3.6 mEq/L (3.5-5.2)
[2016-11-26] MEDS: INSULIN REGULAR HUMAN 100 UNIT/ML SC SCH ×6 (02:38→22:02)
[2016-11-26] MEDS: POTASSIUM Cl (KCl) 50 ML IV SCH ×5 (02:53→14:08)
[2016-11-26] MEDS: HYDROCORTISONE 100 MG/2 ML VIAL IVP SCH ×3 (05:56→21:54)
[2016-11-26] MEDS: MEROPENEM 1 GM in NS 100 ML IV SCH ×3 (05:56→21:56)
[2016-11-26 06:12] LABS: BASE EXCESS 2.6 mEq/L (-2.5-2.5); BICARBONATE 25 mEq/L (22-26); IONIZED CALCIUM 1.11 MMOL/L (1.12-1.30); MEASURED OXYGEN SATURATION 97 % (92-95); PCO2 33 mmHg (34-38); PO2 87 mmHg (65-75); TCO2 26 mEq/L (23-27)
[2016-11-26 06:24] LABS: ASSIST CONTROL YES; END TIDAL CO2 38; O2 CONCENTRATIION 35 % (0-100); P/F RATIO 249 RATIO
[2016-11-26 06:37] LABS: POTASSIUM 3.7 mEq/L (3.5-5.2)
[2016-11-26] MEDS ORDERED: CALCIUM GLUCONATE 50 ML IV ONE (08:33)
[2016-11-26] MEDS ORDERED: POTASSIUM Cl (KCl) 50 ML IV ONE (08:34)
[2016-11-26 09:02] LABS: ABSOLUTE NRBC COUNT 0.38 10^3/uL (0-0.01); ADD DIFF? YES; ATYPICAL LYMPHOCYTE FLAG 0 (0-99); FRAGMENT RBC FLAG 60 (0-99); HEMOGLOBIN 9.4 g/dL (12.6-16.3); LIPEMIA HEMOLYSIS FLAG 80 (0-99); MEAN CELL HEMOGLOBIN 30.9 pg (27.9-34.1); MEAN CELL HEMOGLOBIN CONCENTR. 33.6 g/dL (32.4-36.7); MEAN CELL VOLUME 92.1 fL (81.5-99.8); PLATELET CLUMPS FLAG 30 (0-99); PLATELET COUNT 117 10^3/uL (150-400); RED BLOOD CELL COUNT 3.04 10^6/uL (4.18-5.33)
[2016-11-26 09:04] LABS: RED CELL DISTRIBUTION WIDTH 20.1 % (11.5-15.2)
[2016-11-26 09:05] LABS: ADD MORPH? NO; ADD SCAN? NO; LEFT SHIFT FLG 300 (0-99); NRBC-AUTO% 2.1 % (0.0-0.2)
--- NOTE | 2016-11-26 09:08 | PCMIDPN ---
Assessment/Plan: #Severe Septic shock secondary to abdominal catastrophe from bowel perf and subsequent peritonitis s/p washouts. Course complicated by large R MCA stroke and AF with RVR. General trend down in fever curve. CT scan 2 days ago suggested control of infection therefore fever more likely due to drug fever ( ceftriaxone dc 11/24) or central fever. Still with significant liquid stool output but 11/23 Cdiff neg. General impression is slight improvement today --continue meropenem --> covering Bacteroides, Streptococcus and E coli, micafungin empiric antifungal therapy. Cannot have fluconazole for empiric antifungal coverage due to amiodarone therapy. --serous fluid draining around KATHRYN likely ascites #Bacteroides / s. anginosis bacteremia: follow up blood cx are negative --covered w meropenem # leukocytosis in the setting of improvement. Prior normal WBC may have been abnormal response to critical illness --repeat blood cultures --discuss with Dr. Peña change to triple-lumen PICC # mild hepatitis likely related to sepsis, sl worse today, continue to monitor #thrombocytopenia - improved Microbiology 11/23 blood cx (2) NGTD 11/19 blood cx (2) Neg 11/16 blood cx (/) bacteroides 11/16 peritoneal gram stain positive for 3+GPC, 2+ GNR; streptococcus and e coli (pratt-S); no yeast ID to date meds, Abx #12 micafungin 100mg IV daily #12 meropenem 1gm IV q8h #2 Subjective: Patient is more awake today and following commands Objective: Vital Signs Temp Pulse Resp BP Pulse Ox 38.1 C 121 H 31 H 109/64 100 11/26/16 08:00 11/26/16 08:00 11/26/16 08:00 11/26/16 08:00 11/26/16 08:00 Laboratory Results 11/26/16 08:40 11/26/16 05:50 11/25/16 11/26/16 11/27/16 05:59 05:59 05:59 Intake Total 4716 4675 Output Total 3825 3010 Balance 891 1665 Gen: Remains intubated on vent L subclavian c/d/i ETT, OGT CV irr irr tachy Chest: course bs on vent Abdomen: Soft, rectal tube full of stool, midline incision without erythema, R KATHRYN drain serous fluid Ext: Anasarca skin: no rash Neuro opens eyes to verbal stimulation - Time Spent With Patient Time Spent with Patient: greater than 25 minutes ( was updated at bedside ) Time Spent with Patient: Greater than 25 minutes spent on this patients care, greater than 50% of time spent counseling, educating, and coordinating care regarding the above mentioned plan. ICD10 Worksheet Patient Problems: Problems Problem Status Onset CVA (cerebral vascular accident) Acute Perforated abdominal viscus Acute Respiratory failure Acute
[2016-11-26] MEDS: CHLORHEXIDINE GLUCONATE 15 ML UDL PO SCH ×2 (09:13→21:56)
[2016-11-26 09:32] LABS: CREATININE 0.7 mg/dL (0.6-1.0); GLOMERULAR FILTRATION RATE > 60
[2016-11-26 09:51] LABS: LARGE PLATELETS PRESENT; PLATELET ESTIMATE DECREASED (ADEQ); TOXIC GRANULATION PRESENT
[2016-11-26 09:52] LABS: POLYCHROMASIA 1+; SCHISTOCYTES 1+
[2016-11-26] MEDS: ASPIRIN 325 MG TAB TUBE SCH (10:00)
[2016-11-26] MEDS: MICAFUNGIN NA 100 MG in NS 100 ML IV SCH (10:00)
[2016-11-26] MEDS ORDERED: AMIODARONE HCL 900 MG in D5W 500 ML IV SCH (10:00)
[2016-11-26] MEDS ORDERED: ALTEPLASE 2 MG VIAL IVP PRN (10:08)
[2016-11-26] MEDS: PANTOPRAZOLE SODIUM 40 MG in NS 100 ML IV SCH ×2 (10:46→23:32)
--- NOTE | 2016-11-26 11:58 | NEUROPROG ---
Assessment: CC: Stroke Narrative Summary: This 66F patient was initially seen as an inpatient consult on 11/21/16.~ She had been admitted to [facility] on 11/16/16 for peritonitis that evolved into septic shock with some related hypotension.~ She required a bowel surgery and ID was asked to consult.~ She was placed in the ICU and intubated.~ She has been noted at times to be in afib.~ After sedation was stopped it was noted she was not moving her left side so a head CT was obtained and it showed a subacute R MCA region stroke. She is still comatose despite stopping intubation. F/U on 11/22/16. TTE and carotid U/S showed no significant findings. Pt has not yet woken up. No new problems. Right arm still withdraws from pain. F/U on 11/23/16. No significant new clinical changes over night. Pt more vigorous to withdrawal form pain in right arm and when eyes held open seems to focus at times on stimuli. Still not following commands. EEG shows no seizures. No new problems. F/U 11/24/16. Head CT stable w/o bleed or edema. Pt still comatose. Fever worse today so possibly worsening sepsis. No new complaints. F/U 11/25/16. Fever improved today but still present. No changes in neurologic status and pt still comatose. No new complaints. Less pressors needed today. HPI: F/U on 11/26/16. Fever improved. Pt awakening today and can now follow some commands (moves right hand fingers to my verbal commands). Otherwise, no change in neurologic exam (comatose, left arm and b/l leg no withdrawing to pain or moving). Pt clearly improving. No new complaints. PMHx: RA on chronic prednisone, diverticulitis, chronic back pain, asthma PSHx: spinal surgery, R hip, ankle fusion SHx: no tobacco FHx: no rheumatologic diseases Labs: 11/21/16- LDL 36, H1AC 7.3 Rads: 11/20/16- Head CT w/o con: subacute stroke in R MCA territory, minimal mass effect w/o shift, no bleed (I personally visualized the images on 11/21/16) 11/21/16- Carotid U/S: no hemodynamically significant stenosis 11/21/16- TTE: no cardiac thrombus 11/23/16- EEG: no seizures, generalized slowing, PLED's, and right sided decreased amplitude (likely from underlying stroke) 11/24/16- Head CT: stable right MCA CVA, no new bleed or edema Assessment: 1. Septic Shock from peritonitis 2. Afib 3. Right MCA stroke likely from afib 4. RA on chronic steroids 5. Coma: likely from combination of sepsis, recent sedation, and recent R MCA stroke; improving on 11/26/16 as she can now follow some commands Plan: - Continue supportive care as long as sepsis will resolve, I feel her prognosis is more related to her sepsis than to her R MCA CVA at this time - Continue aspirin 325mg qd for stroke prevention, recommend repeat head CT after 12/12/16 and if no hemorrhage seen then recommend changing to oral anti- coagulation if afib is still a concern - Do not use heparin gtt for anti-coagulation for stroke prevention at this time as data does not support briding therapy early prior to starting oral anti- coagulation - LDL Goal < 70 (36) - H1AC Goal < 7.0 (7.3) - Blood pressure goal < 140/90 - F/U 4-6 weeks after hospital and rehab discharge in the neurology clinic with Dr. Lau (phone: [phone]) No further neurologic w/u needed at this time so neurology will sign off. However, we will be happy to get re-involved if needed. 35 min spent with patient and her [id number], majority of time spent counseling on stroke prognosis and likely future ICU care plans to include discussing her improved prognosis today. Objective: Vital Signs Temp Pulse Resp BP Pulse Ox 38.1 C 122 H 30 H 104/64 100 11/26/16 11:00 11/26/16 11:00 11/26/16 11:00 11/26/16 11:00 11/26/16 11:00 Laboratory Results 11/26/16 08:40 11/26/16 05:50 11/25/16 11/26/16 11/27/16 05:59 05:59 05:59 Intake Total 4716 4675 Output Total 3825 3010 Balance 891 1665 PT 20.2 SEC (12.0-15.0) H 11/16/16 13:00 INR 1.72 (0.83-1.16) H 11/16/16 13:00 Allergies/Adverse Reactions: Penicillins Allergy (Verified 11/16/16 09:09)
[2016-11-26] MEDS ORDERED: K PHOS 10 MMOL in D5W 250 ML IV ONE (12:00)
[2016-11-26 12:05] LABS: POTASSIUM 3.5 mEq/L (3.5-5.2)
--- NOTE | 2016-11-26 12:06 | SOAPPROG ---
SOAP Progress Note Assessment/Plan: Assessment: abd soft/ still sedated/ ? dvt/ afebrile/ off pressors/ nsr, just converted from afib Plan:continue vent 11/25/16 10:55 11/26/16 12:04 DIFFICULT TO EVALUATE BUT CLINICALLY IMPROVING / HIGH TEMPERATURES LAST NIGHT HER PROBLEMATIC / SEROUS KATHRYN DRAINAGE WHICH IS ABUNDANT / ABDOMEN SEEMS SOFT / WOUND OKAY STILL ON THE VENT / LAST CT SCAN WAS NEGATIVE FOR INTRA-ABDOMINAL PROBLEMS / TODAY SHE IS RESPONDING TO COMMANDS PLAN IS TO DC OR CENTRAL LINE EXCHANGE FOR A PICC TO LIMIT THAT IS THE SOURCE OF FEVER Objective: Vital Signs Temp Pulse Resp BP Pulse Ox 38.1 C 122 H 30 H 104/64 100 11/26/16 11:00 11/26/16 11:00 11/26/16 11:00 11/26/16 11:00 11/26/16 11:00 Laboratory Results 11/26/16 08:40 11/25/16 11/26/16 11/27/16 05:59 05:59 05:59 Intake Total 4716 4675 Output Total 3820 3010 Balance 891 1665 PT 20.2 SEC (12.0-15.0) H 11/16/16 13:00 INR 1.72 (0.83-1.16) H 11/16/16 13:00 ICD10 Worksheet Patient Problems: Problems Problem Status Onset CVA (cerebral vascular accident) Acute Perforated abdominal viscus Acute Respiratory failure Acute
[2016-11-26] MEDS: DILTIAZEM 125 MG in D5W 125 ML IV SCH (12:16)
[2016-11-26] MEDS ORDERED: FUROSEMIDE 40 MG/4 ML VIAL IVP ONE (13:06)
--- NOTE | 2016-11-26 13:10 | PDINTPN ---
[employer] Progress Note Assessment/Plan: Assessment: 66 F admitted with abdominal pain and hypotension found to have free air and pus on CT. She was taken to surgery but a defect was not found despite two surgeons. She was then brought to the ICU with ongoing hypotension and septic shock from peritonitis and has required ongoing support with pressors, ventilator, and septic shock protocol. She also has a history of RA and is chronic prednisone for this, so stress dose steroids were added. * Peritonitis and septic shock- she likely had a perforated viscous at least at some point. She is covered with meropenem, micafungin. WBC up, has persistent fevers. ID following. EGD and OR re-exploration have been unable to identify a defect, so likely closed off. Abdomen closed 11/18. Back on pressors, ? persistent intra-abdominal infection. On Meropenem, Micafungin * R MCA CVA: Likely due to AF. Unresponsive, likely due to acute CVA with edema , as well as critical illness from peritonitis, AF. * Afib with RVR- this occurred after her left subclavian central line was dislodged with minimal existing suture. She was without pressors briefly and her BP dropped to the 70's with resultant tachycardia. Once her pressors were resumed (after replacement of line) her HR persisted and EKG showed afib. An amiodarone drip was started after bolus. Now in NSR, with episodes of AF with RVR @150 intermittently despite amio IV, improved with PRN Cardizem. * Acute respiratory failure with hypoxemia- 2/2 septic shock, bibasilar consolidation/pneumonia. Her oxygen requirements are fairly low at FIO2 40%, but she's on PEEP 12 cmH2O. Unlikely to be able to extubate given acute CVA, unresponsive. * CORETTA- this has resolved. Hypernatremia persists with diuresis. * Transaminitis- Minor elevation of LFTs which are declining with adequate BP support * Anemia: Hgb fairly stable over the last few days. No signs active bleeding * Hyperglycemia: BS upper 100s on increased SSI. * Hypokalemia: Persists today, likely related to diuresis. On replacement * Hypotension: Developed 11/24. ? due to abdominal infection. On low-dose NE at 3 , BP better, urine output good. * Nutrition: On TF. Plan: Continue ASA. Weaning oxygen as tolerated. Continue amiodarone, change to PO. Titrate Cardizem gtt. Continue SSI. Continue to follow Na on increased free H2O via TF flushes. Lasix today. Rremove and culture TLC, place PICC. 11/26/16 13:15 Subjective: Intubated, minimally responsive. Objective: Vital Signs Temp Pulse Resp BP Pulse Ox 38.2 C 114 H 28 H 113/74 97 11/26/16 12:00 11/26/16 12:16 11/26/16 12:00 11/26/16 12:00 11/26/16 12:00 Laboratory Results 11/26/16 08:40 11/26/16 11:50 11/25/16 11/26/16 11/27/16 05:59 05:59 05:59 Intake Total 4716 4675 Output Total 3825 3010 Balance 891 1665 PT 20.2 SEC (12.0-15.0) H 11/16/16 13:00 INR 1.72 (0.83-1.16) H 11/16/16 13:00 CXR: Slightly improved left base. Images reviewed. Physical Exam - Physical Exam General Appearance: No alert EENT: normal ENT inspection, ET tube Neck: normal inspection Respiratory: lungs clear, No normal breath sounds Cardiac/Chest: regular rate, rhythm, edema (1+) Abdomen: normal bowel sounds, non-tender, soft Skin: normal color, warm/dry Extremities: non-tender Neuro/Psych: No alert, No oriented x 3 ICD10 Worksheet Patient Problems: Problems Problem Status Onset CVA (cerebral vascular accident) Acute Perforated abdominal viscus Acute Respiratory failure Acute
[2016-11-26] MEDS ORDERED: AMIODARONE HCL 200 MG TAB PO SCH (13:30)
[2016-11-26 14:55] LABS: ANION GAP 9 mEq/L (8-16); CALCIUM 7.2 mg/dL (8.5-10.4); CARBON DIOXIDE 25 mEq/l (22-31); CHLORIDE 114 mEq/L (97-110); CREATININE 0.5 mg/dL (0.6-1.0); GLOMERULAR FILTRATION RATE > 60; GLUCOSE 201 mg/dL (70-100); POTASSIUM 4.1 mEq/L (3.5-5.2); SODIUM 148 mEq/L (134-144)
[2016-11-26] MEDS: ACETAMINOPHEN 650 MG/20.3 ML UDCUP TUBE PRN (15:06)
[2016-11-26] MEDS: NOREPINEPHRINE/NS 500 ML IV SCH (17:55)
[2016-11-26 18:03] LABS: POTASSIUM 3.3 mEq/L (3.5-5.2)
[2016-11-27 00:35] LABS: POTASSIUM 3.2 mEq/L (3.5-5.2)
[2016-11-27] MEDS: INSULIN REGULAR HUMAN 100 UNIT/ML SC SCH ×6 (02:16→21:22)
[2016-11-27] MEDS: POTASSIUM Cl (KCl) 50 ML IV SCH ×10 (02:20→21:46)
[2016-11-27 05:16] LABS: IONIZED CALCIUM 1.08 MMOL/L (1.12-1.30)
[2016-11-27 05:46] LABS: ANION GAP 7 mEq/L (8-16); CALCIUM 6.9 mg/dL (8.5-10.4); CARBON DIOXIDE 26 mEq/l (22-31); CHLORIDE 115 mEq/L (97-110); CREATININE 0.7 mg/dL (0.6-1.0); GLOMERULAR FILTRATION RATE > 60; GLUCOSE 152 mg/dL (70-100); POTASSIUM 4.2 mEq/L (3.5-5.2); SODIUM 148 mEq/L (134-144)
[2016-11-27] MEDS: MEROPENEM 1 GM in NS 100 ML IV SCH ×3 (06:04→21:22)
[2016-11-27] MEDS: HYDROCORTISONE 100 MG/2 ML VIAL IVP SCH ×3 (06:04→21:13)
[2016-11-27] MEDS ORDERED: CALCIUM GLUCONATE 50 ML IV ONE (07:38)
[2016-11-27] MEDS: CHLORHEXIDINE GLUCONATE 15 ML UDL PO SCH ×2 (08:41→21:22)
[2016-11-27 09:00] LABS: ABSOLUTE NRBC COUNT 0.71 10^3/uL (0-0.01); ADD DIFF? YES; ADD MORPH? YES; ATYPICAL LYMPHOCYTE FLAG 0 (0-99); FRAGMENT RBC FLAG 60 (0-99); HEMATOCRIT 27.5 % (38.0-47.0); HEMOGLOBIN 9.4 g/dL (12.6-16.3); LIPEMIA HEMOLYSIS FLAG 90 (0-99); MEAN CELL HEMOGLOBIN CONCENTR. 34.2 g/dL (32.4-36.7); MEAN CELL VOLUME 90.8 fL (81.5-99.8); PLATELET CLUMPS FLAG 30 (0-99); PLATELET COUNT 141 10^3/uL (150-400); RED BLOOD CELL COUNT 3.03 10^6/uL (4.18-5.33)
[2016-11-27] MEDS: ASPIRIN 325 MG TAB TUBE SCH (09:10)
[2016-11-27] MEDS: MICAFUNGIN NA 100 MG in NS 100 ML IV SCH (09:10)
[2016-11-27] MEDS: AMIODARONE HCL 200 MG TAB TUBE SCH (09:10)
[2016-11-27] MEDS: PANTOPRAZOLE SODIUM 40 MG in NS 100 ML IV SCH (09:11)
[2016-11-27 09:13] LABS: NRBC-AUTO% 3.2 % (0.0-0.2); RED CELL DISTRIBUTION WIDTH 20.4 % (11.5-15.2)
[2016-11-27 09:14] LABS: ADD SCAN? NO; LEFT SHIFT FLG 300 (0-99)
--- NOTE | 2016-11-27 09:55 | SOAPPROG ---
SOAP Progress Note Assessment/Plan: Assessment/Plan 66yo F s/p ex-lap, washout and closure for unknown likely perforated viscus, R MCA CVA - Neuro: Has been off sedation for some time. Per report from RN and , patient was responding to commands yesterday and moving her hand appropriately. Neurology has made recs for further workup and has signed off, assistance appreciated. - Pulm: Remains on vent, settings have been stable. - CV: Intermittently in and out of A-fib. Pressures have been stable - Abd: soft, nondistended, KATHRYN is getting thicker and slowing. CT last week showed diffuse bowel thickening which is consistent with intraop (thick rind on all serosal surfaces). Tolerating tube feeds with persistent loose stools. Rectal tube in place for skin protection - ID: Continues to have high fevers at night, WBC now up 21 today. Unclear source as CT scan from abscess standpoint was reassuring, unclear whether or not re-scan today would be beneficial. - Dispo: Made some progress yesterday only to lose ground today. Unclear etiology of fevers and new WBC. Will discuss with ID, pulm/cc 11/17/16 14:30 11/17/16 14:32 11/17/16 14:33 11/17/16 14:34 11/19/16 08:46 11/19/16 08:49 11/19/16 08:50 11/20/16 15:37 11/21/16 15:11 11/21/16 15:13 11/23/16 09:13 11/24/16 09:34 11/27/16 09:55 Subjective: Not following commands today Objective: Vital Signs Temp Pulse Resp BP Pulse Ox 38.3 C 88 30 H 128/57 H 97 11/27/16 07:00 11/27/16 08:25 11/27/16 08:25 11/27/16 07:00 11/27/16 08:25 Laboratory Results 11/27/16 08:55 11/27/16 05:00 11/26/16 11/27/16 11/28/16 05:59 05:59 05:59 Intake Total 4675 4629.5 Output Total 3010 3315 Balance 1665 1314.5 PT 20.2 SEC (12.0-15.0) H 11/16/16 13:00 INR 1.72 (0.83-1.16) H 11/16/16 13:00 ICD10 Worksheet Patient Problems: Problems Problem Status Onset CVA (cerebral vascular accident) Acute Perforated abdominal viscus Acute Respiratory failure Acute - ICD10 Problem Qualifiers (1) CVA (cerebral vascular accident) Qualifiers: CVA mechanism: C Precerebral and cerebral artery: P Laterality of affected vessel: L (2) Respiratory failure Qualifiers: Chronicity: C Respiratory failure complication: R
[2016-11-27 10:03] LABS: PLATELET ESTIMATE DECREASED (ADEQ)
[2016-11-27 10:04] LABS: HYPOCHROMIA 1+; KERATOCYTES 1+; POLYCHROMASIA 1+
[2016-11-27 10:06] LABS: SCHISTOCYTES 1+
--- NOTE | 2016-11-27 10:06 | PDINTPN ---
[employer] Progress Note Assessment/Plan: Assessment: 66 F admitted with abdominal pain and hypotension found to have free air and pus on CT. She was taken to surgery but a defect was not found despite two surgeons. She was then brought to the ICU with ongoing hypotension and septic shock from peritonitis and has required ongoing support with pressors, ventilatory support, and septic shock protocol. She also has a history of RA and is chronic prednisone for this, so stress dose steroids were added. S/P stroke, with R MCA ischemic lesion. * Peritonitis and septic shock- she likely had a perforated viscous at least at some point. She is covered with meropenem, micafungin. WBC up, has persistent fevers. ID following. EGD and OR re-exploration have been unable to identify a defect, so likely closed off. Abdomen closed 11/18. Off pressors. On Meropenem, Micafungin * R MCA CVA: Likely due to AF. Unresponsive, not waking up, but she may be starting to follow some simple commands at times? Likely due to acute CVA with edema, as well as critical illness from peritonitis, previous meds, etc. Not on any seditives or narcotics x several days. Neurology consultation appreciated. * Afib with RVR- multifactorial. On amiodarone and p.r.n. diltiazem. Now in NSR , with episodes of AF intermittently. * Acute respiratory failure with hypoxemia- 2/2 septic shock, bibasilar consolidation/pneumonia. Her oxygen requirements are low at 35%. Unable to wean significantly or consider extubation at this time secondary to her mental status, not waking up.. * CORETTA- this has resolved. Hypernatremia is improving. * Volume overload. Remains edematous with significant anasarca. Diuresis indicated if blood pressure and BUN tolerate. * Anemia: Hct stable at 27 range. No signs active bleeding * Hyperglycemia: BS upper 100s on increased SSI. * Hypokalemia: On replacement protocols * Hypotension: Resolved for now * Nutrition: On TF. Plan: Continue supportive care and ventilatory support. Will initiate short CPAP trials if tolerated. Continue antibiotics. Continue to hold any sedative medications and pain medications if possible. Continue aspirin for secondary stroke prevention. Continue antiarrhythmic therapies. Continue tube feedings. Renew Lasix at 20 mg twice daily today following blood pressure, serum bicarb minute and BUN. Follow laboratory, blood gas and x-ray. I discussed the patient's clinical status with the patient's and his sister. We he talked about the possibility of improvement, the possibility of needing a tracheostomy, a possible poor outcome in light of her stroke and chronic severe rheumatoid arthritis, etc. They wish to keep her full cor for now. Will continue do discuss her progress and prognosis on a daily basis. A palliative care consultation was also discussed based on how she does over the next couple a days. All the above was discussed with the patient's family, respiratory, nursing, and the ICU multi disciplinary team. 1 hour critical care time was spent directly with the patient. Subjective: Unresponsive, on the ventilator. Moves right upper extremity spontaneously but will not follow commands, will not wake up with stimulation, open eyes, etc. Objective: Vital Signs Temp Pulse Resp BP Pulse Ox 38.3 C 88 30 H 128/57 H 97 11/27/16 07:00 11/27/16 08:25 11/27/16 08:25 11/27/16 07:00 11/27/16 08:25 Laboratory Results 11/27/16 08:55 11/27/16 05:00 11/26/16 11/27/16 11/28/16 05:59 05:59 05:59 Intake Total 4675 4629.5 Output Total 3010 3315 Balance 1665 1314.5 PT 20.2 SEC (12.0-15.0) H 11/16/16 13:00 INR 1.72 (0.83-1.16) H 11/16/16 13:00 Physical Exam - Physical Exam General Appearance: unresponsive, other (On ventilator) EENT: PERRL/EOMI (Deviated down words to the right), ET tube, other (NG to) Neck: normal inspection (No obvious JVD.) Respiratory: lungs clear (Anteriorly), decreased breath sounds (At the bases, few rales), No rhonchi, No wheezing Cardiac/Chest: regular rate, rhythm, other (Distant heart tones) Abdomen: soft, distended (Minimal distension), other (Postop changes), No normal bowel sounds (Decreased, present) Pelvic Exam: other (Domínguez catheter in place. Input greater than output last 3- 4 days.) Skin: normal color, warm/dry Lymphatic: no adenopathy Extremities: pedal edema, swelling (Anasarca present) Neuro/Psych: cognition abnormalities (Not waking up, not following commands today.), No no motor/sensory deficits (Not moving left side, will moves right side spontaneously) ICD10 Worksheet Patient Problems: Problems Problem Status Onset Perforated abdominal viscus Acute CVA (cerebral vascular accident) Acute Respiratory failure Acute
[2016-11-27 10:08] LABS: LARGE PLATELETS PRESENT; TOXIC GRANULATION PRESENT
--- NOTE | 2016-11-27 10:33 | PCMIDPN ---
Assessment/Plan: Assessment/Plan: * Septic shock due to peritonitis status post washout x2 without identified perforation with concomitant Streptococcus anginosus/Bacteroides bacteremia: Continue meropenem and micafungin. If fevers and leukocytosis persist, agree that repeat CT scan of abdomen and pelvis may be warranted to further assess. * Fever: Considerations include intra-abdominal abscess versus drug fever versus central fever after MCA stroke. Repeat blood cultures remain negative. Central line changed yesterday. Has continuous fever although overall curve with lower peaks. * Leukocytosis: May represent leukemoid response after having white blood cell count decreased to 2.7 on 11/24/2016. 11/27/16 10:30 11/27/16 10:31 Subjective: Intubated, unresponsive. Objective: Vital Signs Temp Pulse Resp BP Pulse Ox 38.5 C H 92 30 H 126/65 H 96 11/27/16 10:00 11/27/16 10:00 11/27/16 10:00 11/27/16 10:00 11/27/16 10:00 Laboratory Results 11/27/16 08:55 11/27/16 05:00 11/26/16 11/27/16 11/28/16 05:59 05:59 05:59 Intake Total 4675 4629.5 Output Total 3010 3315 Balance 1665 1314.5 Meropenem # 3 Micafungin # 13 Blood cultures 11/23/2016 no growth Blood cultures and cath tip culture 11/26/2016 pending - Physical Exam General Appearance: non-toxic, other (Unresponsive) EENT: ET Tube Respiratory: lungs clear Cardiac/Chest: regular rate, rhythm Extremities: No inflammation Abdomen: non-tender, distended (Mild), other (Wound VAC in place) - Line/s LUE PICC Lines: No drainage, No erythema ICD10 Worksheet Patient Problems: Problems Problem Status Onset CVA (cerebral vascular accident) Acute Perforated abdominal viscus Acute Respiratory failure Acute
[2016-11-27] MEDS: FUROSEMIDE 20 MG/2 ML VIAL IVP SCH (11:38)
[2016-11-27 12:55] LABS: POTASSIUM 3.2 mEq/L (3.5-5.2)
[2016-11-27] MEDS: PETROLAT,WHT/MIN OIL/SOD CHL 3.5 GM OPHT.OINT EACHEYE PRN (18:33)
[2016-11-27 18:59] LABS: POTASSIUM 3.4 mEq/L (3.5-5.2)
[2016-11-28] MEDS: fentaNYL/NACL 100 ML IV SCH (00:39)
[2016-11-28] MEDS: INSULIN REGULAR HUMAN 100 UNIT/ML SC SCH ×6 (02:49→22:38)
[2016-11-28] MEDS: ACETAMINOPHEN 650 MG/20.3 ML UDCUP TUBE PRN ×2 (03:07→11:03)
[2016-11-28 04:40] LABS: ALANINE AMINOTRANSFERASE 109 IU/L (9-52); ALBUMIN 1.9 g/dL (3.5-5.0); ALKALINE PHOSPHATASE 669 IU/L (38-126); ANION GAP 8 mEq/L (8-16); ASPARTATE AMINOTRANSFERASE 120 IU/L (14-46); BILIRUBIN,TOTAL 6.3 mg/dL (0.1-1.4); CARBON DIOXIDE 25 mEq/l (22-31); CHLORIDE 118 mEq/L (97-110); CREATININE 0.6 mg/dL (0.6-1.0); GLOMERULAR FILTRATION RATE > 60; GLUCOSE 195 mg/dL (70-100); POTASSIUM 3.4 mEq/L (3.5-5.2); SODIUM 151 mEq/L (134-144); TOTAL PROTEIN 3.6 g/dL (6.3-8.2)
[2016-11-28 04:50] LABS: BILIRUBIN-CONJUGATED 5.3 mg/dL (0.0-0.5)
[2016-11-28 04:53] LABS: BASE EXCESS -1.6 mEq/L (-2.5-2.5); BICARBONATE 22 mEq/L (22-26); IONIZED CALCIUM 1.14 MMOL/L (1.12-1.30); MEASURED OXYGEN SATURATION 97 % (92-95); PCO2 33 mmHg (34-38); PO2 100 mmHg (65-75); TCO2 23 mEq/L (23-27)
[2016-11-28 04:54] LABS: ASSIST CONTROL YES; O2 CONCENTRATIION 35 % (0-100); P/F RATIO 286 RATIO; TOTAL RATE 28
[2016-11-28 06:14] LABS: ABSOLUTE NRBC COUNT 1.15 10^3/uL (0-0.01); ADD DIFF? YES; ATYPICAL LYMPHOCYTE FLAG 0 (0-99); FRAGMENT RBC FLAG 60 (0-99); HEMATOCRIT 25.6 % (38.0-47.0); HEMOGLOBIN 8.5 g/dL (12.6-16.3); LIPEMIA HEMOLYSIS FLAG 80 (0-99); MEAN CELL HEMOGLOBIN CONCENTR. 33.2 g/dL (32.4-36.7); MEAN CELL VOLUME 93.4 fL (81.5-99.8); PLATELET CLUMPS FLAG 30 (0-99); PLATELET COUNT 127 10^3/uL (150-400); RED BLOOD CELL COUNT 2.74 10^6/uL (4.18-5.33)
[2016-11-28 06:17] LABS: RED CELL DISTRIBUTION WIDTH 20.5 % (11.5-15.2)
[2016-11-28 06:18] LABS: ADD MORPH? NO; ADD SCAN? NO; LEFT SHIFT FLG 300 (0-99); NRBC-AUTO% 4.5 % (0.0-0.2)
[2016-11-28] MEDS: POTASSIUM Cl (KCl) 50 ML IV SCH ×6 (06:28→15:43)
[2016-11-28 06:32] LABS: PLATELET ESTIMATE ADEQUATE (ADEQ)
[2016-11-28] MEDS: HYDROCORTISONE 100 MG/2 ML VIAL IVP SCH ×3 (06:38→22:29)
[2016-11-28] MEDS: MEROPENEM 1 GM in NS 100 ML IV SCH ×3 (06:38→22:29)
[2016-11-28 06:40] LABS: HYPOCHROMIA 1+; POLYCHROMASIA 1+
[2016-11-28 06:41] LABS: SCHISTOCYTES 1+
[2016-11-28 06:42] LABS: TOXIC GRANULATION PRESENT
[2016-11-28] MEDS: FUROSEMIDE 20 MG/2 ML VIAL IVP SCH (08:34)
[2016-11-28] MEDS: CHLORHEXIDINE GLUCONATE 15 ML UDL PO SCH ×2 (08:34→22:30)
[2016-11-28] MEDS: AMIODARONE HCL 200 MG TAB TUBE SCH (08:34)
[2016-11-28] MEDS: LANSOPRAZOLE SUSP 30MG/10ML UDSYR (Adult) TUBE SCH (08:34)
[2016-11-28] MEDS: ENOXAPARIN 40 MG/0.4 ML SYR SC SCH (08:38)
[2016-11-28] MEDS: ASPIRIN 325 MG TAB TUBE SCH (08:38)
--- NOTE | 2016-11-28 09:10 | SOAPPROG ---
SOAP Progress Note Assessment/Plan: Assessment/Plan 66yo F s/p ex-lap, washout and closure for unknown likely perforated viscus, R MCA CVA - Continues to fever, WBC now up to 25k. CT scan this AM is actually resasuring (no free air and minimal fluid) but character of KATHRYN suspicious for enteric contents. Will plan take back to OR today for exploration. Hold tube feeds, lovenox. 11/17/16 14:30 11/17/16 14:32 11/17/16 14:33 11/17/16 14:34 11/19/16 08:46 11/19/16 08:49 11/19/16 08:50 11/20/16 15:37 11/21/16 15:11 11/21/16 15:13 11/23/16 09:13 11/24/16 09:34 11/27/16 09:55 11/28/16 09:09 Objective: Vital Signs Temp Pulse Resp BP Pulse Ox 37.9 C 90 28 H 135/59 H 98 11/28/16 07:59 11/28/16 07:59 11/28/16 07:59 11/28/16 07:59 11/28/16 07:59 Laboratory Results 11/28/16 06:00 11/28/16 04:15 11/27/16 11/28/16 11/29/16 05:59 05:59 05:59 Intake Total 4629.5 3614 Output Total 3315 1760 225 Balance 1314.5 1854 -225 PT 20.2 SEC (12.0-15.0) H 11/16/16 13:00 INR 1.72 (0.83-1.16) H 11/16/16 13:00 ICD10 Worksheet Patient Problems: Problems Problem Status Onset CVA (cerebral vascular accident) Acute Perforated abdominal viscus Acute Respiratory failure Acute - ICD10 Problem Qualifiers (1) CVA (cerebral vascular accident) Qualifiers: CVA mechanism: C Precerebral and cerebral artery: P Laterality of affected vessel: L (2) Respiratory failure Qualifiers: Chronicity: C Respiratory failure complication: R
[2016-11-28] MEDS: MICAFUNGIN NA 100 MG in NS 100 ML IV SCH (10:11)
[2016-11-28] MEDS: D5W 1,000 ML IV SCH (11:05)
--- NOTE | 2016-11-28 12:22 | PCMIDPN ---
Assessment/Plan: Assessment/Plan: 1. Severe septic shock 2/2 to likely perforated viscus, peritonitis: s/p wash out x 2 (11/16, 11/18/16) -Pus found in abdominal cavity at first washout, with GPC,GNR on GS and mixed margareth on cx. -s/p wash out /exploration today: no pus,stool, abscess, succus found. no perforation identified. -s/p EGD: no perforation noted. -Currently on Merem, Micafungin. -patient going back to OR today -Update son at bedside. 2. Polymicrobial Bacteremia: -secondary to above. -Cx so far with: Streptococcus and Bacteroides -f/u blood cx from 11/19/16 ngtd -On Merem Meds merem - micafungin 100mg daily- 11/17 s/p vanco 1g q12- 11/17-11/19 merem 1g q8- 11/17-11/20 ceftriaxone 2g daily-11/20/16 flagyl 500mg q8- 11/20/16 Subjective: Continued fevers. remains in icu. intubated. son at bedside Objective: Vital Signs Temp Pulse Resp BP Pulse Ox 38.1 C 90 28 H 120/53 L 100 11/28/16 10:00 11/28/16 11:00 11/28/16 11:00 11/28/16 11:00 11/28/16 11:00 Laboratory Results 11/28/16 06:00 11/28/16 04:15 11/27/16 11/28/16 11/29/16 05:59 05:59 05:59 Intake Total 4629.5 3614 Output Total 3315 1760 225 Balance 1314.5 1854 -225 - Physical Exam General Appearance: other (intubated. ) EENT: ET Tube Respiratory: coarse breath sounds Cardiac/Chest: regular rate, rhythm Extremities: No swelling Abdomen: normal bowel sounds, distended, other (jill drain with purulent looking material) Skin: No rash ICD10 Worksheet Patient Problems: Problems Problem Status Onset CVA (cerebral vascular accident) Acute Perforated abdominal viscus Acute Respiratory failure Acute
[2016-11-28 14:06] LABS: POTASSIUM 3.6 mEq/L (3.5-5.2)
--- NOTE | 2016-11-28 14:30 | PDINTPN ---
Corrugator Supervisor Progress Note Assessment/Plan: Assessment: 66 F admitted with abdominal pain and hypotension found to have free air and pus on CT. She was taken to surgery but a defect was not found despite two surgeons. She was then brought to the ICU with ongoing hypotension and septic shock from peritonitis and has required ongoing support with pressors, ventilatory support, and septic shock protocol. She also has a history of RA and is chronic prednisone/immunosuppression for this, so stress dose steroids were added. S/P stroke this hospitalization probably secondary to atrial fibrillation, with R MCA ischemic lesion, left-sided deficit, edema and obtundation. * Peritonitis and septic shock- she likely had a perforated viscous at least at some point. She is covered with meropenem, micafungin. WBC up, has persistent fevers. ID following. EGD and OR re-exploration have been unable to identify a defect, so likely closed off. Abdomen closed 11/18. Off pressors. On Meropenem, Micafungin. Abnormal drainage from KATHRYN tubes similar to stool: Without definite abscess on CT scan. However, she will go back to the operating room today for reexploration. 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 Unresponsive, not waking up, but she may be starting to follow some simple commands at times? Likely due to acute CVA with edema, as well as critical illness from peritonitis, previous meds, etc. Not on any seditives or narcotics x several days. Neurology consultation appreciated. * Afib with RVR- multifactorial. On amiodarone and p.r.n. diltiazem. Now in NSR , with episodes of AF intermittently. * Acute respiratory failure with hypoxemia- 2/2 septic shock, bibasilar consolidation/pneumonia. Her oxygen requirements are low at 35%. Unable to wean significantly or consider extubation at this time secondary to her mental status, not waking up, surgical issues, etc.. * CORETTA- this has resolved. Hypernatremia remains an issue. * Volume overload. Remains edematous with significant anasarca. On Lasix diuresis. * Anemia: Hct 25.6, slightly lower today. No signs active bleeding. Follow * Hyperglycemia: On SSI. * Hypokalemia: On replacement protocols * Hypotension: Resolved for now * Nutrition: On TF, but on hold for surgery today. Plan: Continue supportive care and ventilatory support. Continue antibiotics per ID. To go back to surgery today for reexploration. Continue to hold any sedative medications and pain medications as possible. Continue aspirin for secondary stroke prevention. Continue antiarrhythmic therapies. Reassess tube feedings postop/tomorrow. Continue Lasix. Add free water. Repeat electrolytes this afternoon. Follow laboratory, blood gas and x-ray. Prognosis remains guarded. This was again discussed with the patient's family. We will continue to re-evaluate on a day-by-day basis. All the above was discussed with the patient's family, respiratory, nursing, and the ICU multi disciplinary team. 55 minutes of critical care time was spent directly with the patient this morning. Will re-evaluate postoperatively Subjective: Sedated, unresponsive. Objective: Vital Signs Temp Pulse Resp BP Pulse Ox 38.3 C 82 28 H 125/56 H 100 11/28/16 14:00 11/28/16 14:00 11/28/16 14:00 11/28/16 14:00 11/28/16 14:00 Laboratory Results 11/28/16 06:00 11/28/16 13:35 11/27/16 11/28/16 11/29/16 05:59 05:59 05:59 Intake Total 4629.5 3614 Output Total 3315 1760 550 Balance 1314.5 1854 -550 PT 20.2 SEC (12.0-15.0) H 11/16/16 13:00 INR 1.72 (0.83-1.16) H 11/16/16 13:00 Laboratory Tests 11/28/16 11/28/16 04:15 04:45 pCO2 33 L pO2 100 H ABG pH 7.44 ABG O2 Saturation 97 H O2 Concentration % 35 Respiration Rate 28 Tidal Volume 500 PEEP 5 Calcium 7.0 L Ionized Calcium 1.14 Phosphorus 2.3 L Total Bilirubin 6.3 H D AST 120 H ALT 109 H Albumin 1.9 L CXR: Fairly clear. Left lower lobe atelectasis improving. Lines and tubes in good position. CT abdomen: No definite abscess seen. Significant ascites and mesenteric edema noted bibasilar atelectasis with small effusions are present. Physical Exam - Physical Exam General Appearance: no apparent distress, unresponsive, No alert EENT: PERRL/EOMI, ET tube, other (NG to) Neck: normal inspection (No JVD) Respiratory: lungs clear, decreased breath sounds (At bases), No rales, No rhonchi Cardiac/Chest: regular rate, rhythm (Had a couple of brief runs of atrial fib last night by report.) Abdomen: distended, No normal bowel sounds (Present, hypoactive), No soft Pelvic Exam: other (Domínguez catheter in place: Input greater than output last 2 days.) Skin: warm/dry, pallor Extremities: pedal edema, swelling (Edema, anasarca present, unchanged, approximately 2+.) Neuro/Psych: cognition abnormalities (Cannot assess, unresponsive), No no motor/ sensory deficits (Moves right side spontaneously, not left) ICD10 Worksheet Patient Problems: Problems Problem Status Onset Perforated abdominal viscus Acute CVA (cerebral vascular accident) Acute Respiratory failure Acute
[2016-11-28 17:27] LABS: ANION GAP 6 mEq/L (8-16); CARBON DIOXIDE 26 mEq/l (22-31); CHLORIDE 117 mEq/L (97-110); POTASSIUM 4.6 mEq/L (3.5-5.2); SODIUM 149 mEq/L (134-144)
[2016-11-28] MEDS ORDERED: BUPIVACAINE/EPI 0.25% 30 ML SDV ONE (18:33)
[2016-11-28] MEDS ORDERED: fentaNYL 250 MCG/5 ML INJ ONE (19:50)
[2016-11-28] MEDS ORDERED: PROPOFOL/EMULSION 500 MG/50 ML BOTTLE IV ONE (19:51)
[2016-11-28] MEDS ORDERED: BACITRACIN 50,000 UNITS/10 ML SYR IRR ONE (20:09)
--- NOTE | 2016-11-28 22:06 | POSTOPPROG ---
Post Op Note Date of Operation: 11/28/16 Surgeon: Lars Arreola Corn Grower: Johnathan Anesthesiologist: Christiane Anesthesia: GET(General Endotracheal) Pre-op Diagnosis: worsening sepsis, possible abdominal source Post-op Diagnosis: purulent fluid in abdomen Procedure: exploratory laparotomy, abdominal washout Findings: pus in all quadrants. No perforation identified Inf/Abcess present in the surg proc area at time of surgery?: Yes Depth: Organ Space EBL: Minimal Total fluids administered: 3L irrigation Drains: Other (Abthera) Specimen(s): peritoneal fluid for culture
[2016-11-29 01:30] LABS: POTASSIUM 4.6 mEq/L (3.5-5.2)
[2016-11-29] MEDS: D5W 1,000 ML IV SCH ×2 (02:40→15:20)
[2016-11-29] MEDS: INSULIN REGULAR HUMAN 100 UNIT/ML SC SCH ×6 (02:40→22:10)
[2016-11-29 04:34] LABS: BASE EXCESS -0.5 mEq/L (-2.5-2.5); BICARBONATE 23 mEq/L (22-26); IONIZED CALCIUM 1.21 MMOL/L (1.12-1.30); MEASURED OXYGEN SATURATION 78 % (92-95); PCO2 35 mmHg (34-38); PO2 50 mmHg (65-75); TCO2 24 mEq/L (23-27)
[2016-11-29 04:35] LABS: END TIDAL CO2 30; O2 CONCENTRATIION 35 % (0-100); P/F RATIO 143 RATIO; PATIENT RATE 28; PRESSURE SUPPORT 10; SIMV YES
[2016-11-29 04:43] LABS: APTT 24.1 SEC (23.0-38.0); INR 1.27 (0.83-1.16); PROTIME(PATIENT) 15.9 SEC (12.0-15.0)
[2016-11-29 04:44] LABS: ABSOLUTE NRBC COUNT 1.86 10^3/uL (0-0.01); ADD DIFF? YES; ATYPICAL LYMPHOCYTE FLAG 0 (0-99); FRAGMENT RBC FLAG 60 (0-99); HEMATOCRIT 27.7 % (38.0-47.0); HEMOGLOBIN 8.9 g/dL (12.6-16.3); LIPEMIA HEMOLYSIS FLAG 80 (0-99); MEAN CELL HEMOGLOBIN 30.7 pg (27.9-34.1); MEAN CELL HEMOGLOBIN CONCENTR. 32.1 g/dL (32.4-36.7); MEAN CELL VOLUME 95.5 fL (81.5-99.8); PLATELET CLUMPS FLAG 70 (0-99); PLATELET COUNT 148 10^3/uL (150-400); RED CELL DISTRIBUTION WIDTH 19.8 % (11.5-15.2)
[2016-11-29 04:45] LABS: ADD MORPH? NO; ADD SCAN? NO; LEFT SHIFT FLG 300 (0-99); NRBC-AUTO% 5.2 % (0.0-0.2)
[2016-11-29 04:53] LABS: ALANINE AMINOTRANSFERASE 185 IU/L (9-52); ALBUMIN 1.9 g/dL (3.5-5.0); ALKALINE PHOSPHATASE 833 IU/L (38-126); ANION GAP 5 mEq/L (8-16); ASPARTATE AMINOTRANSFERASE 187 IU/L (14-46); BILIRUBIN,TOTAL 6.5 mg/dL (0.1-1.4); BILIRUBIN-CONJUGATED 5.2 mg/dL (0.0-0.5); BILIRUBIN-UNCONJUGATED 1.3 mg/dL (0.0-1.1); CALCIUM 7.9 mg/dL (8.5-10.4); CARBON DIOXIDE 25 mEq/l (22-31); CHLORIDE 118 mEq/L (97-110); CREATININE 0.6 mg/dL (0.6-1.0); GLOMERULAR FILTRATION RATE > 60; GLUCOSE 149 mg/dL (70-100); POTASSIUM 4.5 mEq/L (3.5-5.2); SODIUM 148 mEq/L (134-144); TOTAL PROTEIN 3.5 g/dL (6.3-8.2)
[2016-11-29] MEDS: fentaNYL/NACL 100 ML IV SCH ×2 (05:22→15:19)
[2016-11-29] MEDS: HYDROCORTISONE 100 MG/2 ML VIAL IVP SCH ×3 (05:22→21:59)
[2016-11-29] MEDS: MEROPENEM 1 GM in NS 100 ML IV SCH ×3 (05:23→21:59)
[2016-11-29 06:49] LABS: HYPOCHROMIA 1+; POLYCHROMASIA 1+; TOXIC GRANULATION PRESENT; TOXIC VACUOLIZATION PRESENT
[2016-11-29 06:50] LABS: PLATELET ESTIMATE DECREASED (ADEQ)
[2016-11-29] MEDS: CHLORHEXIDINE GLUCONATE 15 ML UDL PO SCH ×2 (08:16→22:00)
[2016-11-29] MEDS: LANSOPRAZOLE SUSP 30MG/10ML UDSYR (Adult) TUBE SCH (08:16)
[2016-11-29] MEDS: ENOXAPARIN 40 MG/0.4 ML SYR SC SCH (08:16)
[2016-11-29] MEDS: FUROSEMIDE 20 MG/2 ML VIAL IVP SCH (08:17)
[2016-11-29] MEDS: AMIODARONE HCL 200 MG TAB TUBE SCH (08:17)
[2016-11-29] MEDS: ASPIRIN 325 MG TAB TUBE SCH (08:17)
[2016-11-29] MEDS: MICAFUNGIN NA 100 MG in NS 100 ML IV SCH (08:35)
--- NOTE | 2016-11-29 11:59 | PCMIDPN ---
Assessment/Plan: Assessment/Plan: * Septic shock due to peritonitis status post washout x3 without identified perforation with concomitant Streptococcus anginosus/Bacteroides bacteremia: Repeat washout yesterday showing purulence throughout peritoneum without identifiable perforation. Gram stain shows gram-negative rods and gram- positive cocci consistent with enteric margareth. Continue meropenem and micafungin. Will adjust antibiotics as culture data available. * Fever: Likely secondary to peritonitis as outlined above. Possible contribution from drug fever previously as well given drug rash. * Leukocytosis: Follow-up post repeat washout. 11/29/16 11:55 Subjective: Intubated, sedated. Pressors discontinued. Patient returned to OR yesterday with findings of diffuse purulence in peritoneal cavity without perforation. Objective: Vital Signs Temp Pulse Resp BP Pulse Ox 37.8 C 84 27 H 124/49 H 99 11/29/16 06:00 11/29/16 08:10 11/29/16 06:00 11/29/16 06:00 11/29/16 08:10 Microbiology 11/28/16 20:28 Gram Stain - Final Peritoneal Fluid - Aspirate 11/23/16 12:40 Blood Culture - Final Blood 11/23/16 12:15 Blood Culture - Final Blood 11/16/16 Unknown Mycobacterial Smear (TANIA) - Final Peritoneal Fluid - Aspirate Laboratory Results 11/29/16 04:28 11/29/16 04:28 11/28/16 11/29/16 11/30/16 05:59 05:59 05:59 Intake Total 3614 2167 Output Total 1760 2175 Balance 1854 -8 Meropenem # 5 Micafungin # 14 Blood cultures 11/26/2016 no growth Peritoneal fluid with gram-negative rods and gram-positive cocci on Gram stain - Physical Exam General Appearance: other (Intubated, sedated) EENT: scleral icterus, ET Tube Respiratory: coarse breath sounds Cardiac/Chest: regular rate, rhythm Abdomen: non-tender, distended, other (Wound VAC in place with bilious tinged fluid) ICD10 Worksheet Patient Problems: Problems Problem Status Onset CVA (cerebral vascular accident) Acute Perforated abdominal viscus Acute Respiratory failure Acute
[2016-11-29 12:38] LABS: POTASSIUM 4.3 mEq/L (3.5-5.2)
--- NOTE | 2016-11-29 13:13 | PDINTPN ---
Packaging Tech Progress Note Assessment/Plan: Assessment: 66 F admitted with abdominal pain and hypotension found to have free air and pus on CT. She was taken to surgery 11/16 but a defect was not found despite two surgeons. She was then brought to the ICU with ongoing hypotension and septic shock from peritonitis and has required ongoing support with pressors, ventilatory support, and septic shock protocol. She also has a history of RA and is chronic prednisone/immunosuppression for this, so stress dose steroids were added. S/P stroke this hospitalization probably secondary to atrial fibrillation, with R MCA ischemic lesion, left-sided deficit, edema and obtundation. * Peritonitis and septic shock- she likely had a perforated viscous at least at some point. She is covered with meropenem, micafungin. WBC up, has persistent fevers. ID following. EGD and OR re-exploration have been unable to identify a defect, so likely closed off. Abdomen closed 11/18. Off pressors. On Meropenem, Micafungin. Abnormal drainage from KATHRYN tubes similar to stool: Without definite abscess on CT scan. Went back to surgery : Now has an open abdomen with wound VAC in place.. 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 Unresponsive, not waking up, but was starting to follow some simple commands on the Rt earlier this week. Likely due to acute CVA with edema, as well as critical illness from peritonitis, previous meds, etc. Not on any seditives x several days. On low-dose fentanyl postoperatively from yesterday. Will decrease as tolerated. I will have Neurology re-evaluate regarding her ongoing decreased mental status and given opinion regarding neurologic prognosis at this point. * Afib with RVR- multifactorial. On amiodarone and p.r.n. diltiazem. Now in NSR , with episodes of AF intermittently. * Acute respiratory failure with hypoxemia- 2/2 septic shock, bibasilar consolidation/pneumonia/atelectasis. Her oxygen requirements are low at 35%. Unable to wean significantly or consider extubation at this time secondary to her mental status, not waking up, surgical issues, etc.. * CORETTA- this has resolved. Hypernatremia remains an issue, improved today. * Elevated liver function studies and bilirubin. Gallbladder sludge with pericystic fluid seen on recent CT scan of the abdomen. Will get an ultrasound of the right upper quadrant. * Volume overload. Remains edematous with significant anasarca. On Lasix diuresis. * Anemia: Hct 27.7, slightly better today. No signs active bleeding. Follow * Hyperglycemia: On SSI. * Hypokalemia: On replacement protocols * Hypotension: Resolved for now * Nutrition: On TF, but on hold for surgery today. Plan: Continue supportive care and ventilatory support. Continue antibiotics per ID. Continue wound VAC. For a gallbladder ultrasound today. Possibly back to the operating room tomorrow for a change. Continue to hold any sedative medications. Decreased pain medications as possible. Continue aspirin for secondary stroke prevention. Continue antiarrhythmic therapies. Reassess tube feedings postop/tomorrow. Continue Lasix, free water. Follow laboratory, blood gas and x-ray. Prognosis remains guarded, especially from a neurologic standpoint. I will have Neurology re-evaluate. This was discussed with the patient's family. We will continue to re-evaluate on a day-by-day basis. All the above was discussed with the patient's family, Neurology, Surgery, RT, nursing, and the ICU multi disciplinary team. 45 minutes of critical care time was spent directly with the patient this morning. Subjective: Unresponsive to voice and command. On ventilator, on fentanyl. Objective: Vital Signs Temp Pulse Resp BP Pulse Ox 37.8 C 84 27 H 124/49 H 99 11/29/16 06:00 11/29/16 08:10 11/29/16 06:00 11/29/16 06:00 11/29/16 08:10 Microbiology 11/28/16 20:28 Gram Stain - Final Peritoneal Fluid - Aspirate 11/23/16 12:40 Blood Culture - Final Blood 11/23/16 12:15 Blood Culture - Final Blood 11/16/16 Unknown Mycobacterial Smear (TANIA) - Final Peritoneal Fluid - Aspirate Laboratory Results 11/29/16 04:28 11/29/16 12:15 11/28/16 11/29/16 11/30/16 05:59 05:59 05:59 Intake Total 3614 2167 Output Total 1760 2175 Balance 1854 -8 PT 15.9 SEC (12.0-15.0) H 11/29/16 04:28 INR 1.27 (0.83-1.16) H 11/29/16 04:28 Laboratory Tests 11/29/16 11/29/16 11/29/16 04:28 04:28 04:28 PT 15.9 H INR 1.27 H APTT 24.1 pCO2 35 pO2 50 L ABG pH 7.43 O2 Concentration % 35 Set Respiration Rate 28 Tidal Volume 500 PEEP 5 Pressure Support 10 Sodium 148 H Potassium 4.5 Chloride 118 H Carbon Dioxide 25 BUN 39 H Creatinine 0.6 Glucose 149 H Calcium 7.9 L Phosphorus 3.1 D Total Bilirubin 6.5 H AST 187 H ALT 185 H Albumin 1.9 L CXR: Increased left lower lobe atelectasis/infiltrate/effusion?. Lines and tubes in good position. Physical Exam - Physical Exam General Appearance: no apparent distress, unresponsive, other (On vent) EENT: PERRL/EOMI, ET tube, other (NG) Neck: normal inspection Respiratory: lungs clear (Anteriorly), decreased breath sounds (At bases), No rales, No rhonchi Cardiac/Chest: regular rate, rhythm Abdomen: distended, other (Wound VAC now in place), No normal bowel sounds Pelvic Exam: other (Domínguez catheter, good urine output) Skin: normal color, warm/dry Extremities: pedal edema Neuro/Psych: cognition abnormalities (Remains obtunded, unresponsive to voice, commands), No no motor/sensory deficits (Moves right upper extremity occasionally spontaneously. Grimaces to noxious stimuli of right upper extremity in less so of the lower extremity) ICD10 Worksheet Patient Problems: Problems Problem Status Onset Perforated abdominal viscus Acute CVA (cerebral vascular accident) Acute Respiratory failure Acute
--- NOTE | 2016-11-29 14:27 | NEUROPROG ---
Assessment: // COMA // RMCA EMBOLIC STROKE // AFIB RVR - NOW NSR // SEVERE SEPSIS - PERITONITIS // LEUKOCYTOSIS - WORSENING // RESPIRATORY FAILURE WITH HYPOXEMIA ON MV // HYPERBILIRUBINEMIA // TRANSAMINITIS // THROMBOCYTOPENIA I have been asked to see the patient in followup. She had previously been followed by Dr. Lau. Patient has been minimally responsive and now comatose today. She has been off of all sedating/disinhibiting medications, save for a low dose fentanyl last night for her repeat peritoneal washout, which was found to have purulent fluid on aspiration. Her overall state portends a grim prognosis. Her comatose state with roving eye movements would indicate a severe global cortical disinhibition, likely from toxic/metabolic/infectious/systemic inflammatory issues. Her sizeable RMCA stroke puts her at a disadvantage from a cerebral perspective as well. However, I think the bulk of her prognosis centers around her systemic dysfunction from sepsis and multisystem organ dysfunction. If the patient were to recover from her systemic illnesses, she would still be left with significant deficit from her RMCA stroke, likely resulting in a degree of left- sided weakness, sensory loss, hemianopia, hemineglect. Given her facial droop, swallowing may be an issue, as well. I suspect she would also be left with some degree of cognitive dysfunction. I discussed my findings at length with the patient's , sister and son. They voiced that the patient would likely not want to continue going on with aggressive medical measures, nor be sustained for a neurologic outcome of significant deficit and disability as noted above. They would like to continue discussing with the ICU team if there are any further reasonable medical interventions that could be undertaken from an infectious/systemic perspective. EXAM: VS reviewed in EMR GEN: on MV, no sedative on board MS: intubated, no sedation, no response to verbal or tactile or noxious stimulation. CN: pupils 3mm round reactive. No blink to threat. Dysconjugate gaze with slow roving eye movements. Corneals weakly present. No VORs. Face with lower facial droop about the ETT. No gag to ETT manipulation, no cough to deep suction. MOTOR: no spontaneous or purposeful movement. Flaccid throughout. SENSORY: no response to noxious stimulation of the extremities REFLEX: no clonus, plantars mute, absent DTRs COORD/GAIT: cannot assess DATA: Labs, imaging and physiologic data reviewed in EMR Patient is critically ill with stroke, coma, severe sepsis from peritonitis and multisystem organ dysfunction. 50 mins in CC time spent in direct patient care activities on the floor. Case discussed with Dr. Mueller and Dr. Lau. Objective: Vital Signs Temp Pulse Resp BP Pulse Ox 37.8 C 84 27 H 124/49 H 99 11/29/16 06:00 11/29/16 08:10 11/29/16 06:00 11/29/16 06:00 11/29/16 08:10 Microbiology 11/28/16 20:28 Gram Stain - Final Peritoneal Fluid - Aspirate 11/23/16 12:40 Blood Culture - Final Blood 11/23/16 12:15 Blood Culture - Final Blood 11/16/16 Unknown Mycobacterial Smear (TANIA) - Final Peritoneal Fluid - Aspirate Laboratory Results 11/29/16 04:28 11/29/16 12:15 11/28/16 11/29/16 11/30/16 05:59 05:59 05:59 Intake Total 3614 2167 Output Total 1760 2175 Balance 1854 -8 PT 15.9 SEC (12.0-15.0) H 11/29/16 04:28 INR 1.27 (0.83-1.16) H 11/29/16 04:28 Allergies/Adverse Reactions: Penicillins Allergy (Verified 11/16/16 09:09)
--- NOTE | 2016-11-29 14:33 | SOAPPROG ---
SOAP Progress Note Assessment/Plan: Assessment/Plan: 66 Y F c hx immunosuppressive rx for RA, now with complicated hospital stay including peritonitis, presumed perforated viscous, laparotomy, CVA. abdominal exploration and washout now with open abd and abthera vac. Seen with Dr. Mercado. Condition is guarded. Neurology to reconsult re: prognosis given CVA. Plan for return to OR with Dr. Arreola tomorrow for abdominal washout and closure versus abthera vac replacement. S: on vent, unresponsive O: gen: on vent abd with abthera vac 11/29/16 14:31 Objective: Vital Signs Temp Pulse Resp BP Pulse Ox 37.8 C 84 27 H 124/49 H 99 11/29/16 06:00 11/29/16 08:10 11/29/16 06:00 11/29/16 06:00 11/29/16 08:10 Microbiology 11/28/16 20:28 Gram Stain - Final Peritoneal Fluid - Aspirate 11/23/16 12:40 Blood Culture - Final Blood 11/23/16 12:15 Blood Culture - Final Blood 11/16/16 Unknown Mycobacterial Smear (TANIA) - Final Peritoneal Fluid - Aspirate Laboratory Results 11/29/16 04:28 11/29/16 12:15 11/28/16 11/29/16 11/30/16 05:59 05:59 05:59 Intake Total 3614 2167 Output Total 1760 2175 Balance 1854 -8 PT 15.9 SEC (12.0-15.0) H 11/29/16 04:28 INR 1.27 (0.83-1.16) H 11/29/16 04:28 ICD10 Worksheet Patient Problems: Problems Problem Status Onset CVA (cerebral vascular accident) Acute Perforated abdominal viscus Acute Respiratory failure Acute
[2016-11-29] MEDS: ACETAMINOPHEN 650 MG/20.3 ML UDCUP TUBE PRN (15:19)
[2016-11-29 18:48] LABS: POTASSIUM 4.4 mEq/L (3.5-5.2)
[2016-11-30 01:11] LABS: POTASSIUM 4.7 mEq/L (3.5-5.2)
[2016-11-30] MEDS: INSULIN REGULAR HUMAN 100 UNIT/ML SC SCH ×6 (02:28→21:30)
[2016-11-30 04:26] LABS: ABSOLUTE NRBC COUNT 3.32 10^3/uL (0-0.01); ADD DIFF? YES; ATYPICAL LYMPHOCYTE FLAG 0 (0-99); FRAGMENT RBC FLAG 80 (0-99); HEMOGLOBIN 8.4 g/dL (12.6-16.3); LIPEMIA HEMOLYSIS FLAG 80 (0-99); MEAN CELL HEMOGLOBIN 30.9 pg (27.9-34.1); MEAN CELL HEMOGLOBIN CONCENTR. 32.3 g/dL (32.4-36.7); MEAN CELL VOLUME 95.6 fL (81.5-99.8); PLATELET CLUMPS FLAG 40 (0-99); PLATELET COUNT 169 10^3/uL (150-400); RED BLOOD CELL COUNT 2.72 10^6/uL (4.18-5.33); RED CELL DISTRIBUTION WIDTH 18.8 % (11.5-15.2)
[2016-11-30 04:33] LABS: BASE EXCESS -2.4 mEq/L (-2.5-2.5); BICARBONATE 20 mEq/L (22-26); MEASURED OXYGEN SATURATION 97 % (92-95); PCO2 28 mmHg (34-38); PO2 103 mmHg (65-75); TCO2 21 mEq/L (23-27)
[2016-11-30 04:33] LABS: ADD MORPH? NO; ADD SCAN? NO; LEFT SHIFT FLG 300 (0-99); NRBC-AUTO% 8.8 % (0.0-0.2)
[2016-11-30 04:36] LABS: SIMV YES
[2016-11-30 04:37] LABS: END TIDAL CO2 28; PATIENT RATE 28; PRESSURE SUPPORT 10
[2016-11-30 04:39] LABS: O2 CONCENTRATIION 35 % (0-100); P/F RATIO 294 RATIO
[2016-11-30 04:52] LABS: ALANINE AMINOTRANSFERASE 173 IU/L (9-52); ALBUMIN 1.9 g/dL (3.5-5.0); ALKALINE PHOSPHATASE 678 IU/L (38-126); ANION GAP 6 mEq/L (8-16); ASPARTATE AMINOTRANSFERASE 141 IU/L (14-46); BILIRUBIN,TOTAL 4.6 mg/dL (0.1-1.4); CALCIUM 7.6 mg/dL (8.5-10.4); CARBON DIOXIDE 23 mEq/l (22-31); CHLORIDE 115 mEq/L (97-110); GLOMERULAR FILTRATION RATE 55; GLUCOSE 154 mg/dL (70-100); POTASSIUM 4.7 mEq/L (3.5-5.2); SODIUM 144 mEq/L (134-144); TOTAL PROTEIN 3.5 g/dL (6.3-8.2)
[2016-11-30 05:07] LABS: BILIRUBIN-CONJUGATED 3.6 mg/dL (0.0-0.5)
[2016-11-30] MEDS: HYDROCORTISONE 100 MG/2 ML VIAL IVP SCH ×3 (05:18→21:26)
[2016-11-30] MEDS: MEROPENEM 1 GM in NS 100 ML IV SCH ×3 (05:19→21:26)
[2016-11-30 05:29] LABS: GIANT PLATELETS PRESENT; LARGE PLATELETS PRESENT; PLATELET ESTIMATE DECREASED (ADEQ); TOXIC GRANULATION PRESENT; TOXIC VACUOLIZATION PRESENT
[2016-11-30 05:30] LABS: POLYCHROMASIA 1+
[2016-11-30 05:37] LABS: KERATOCYTES 1+; SCHISTOCYTES 1+; STOMATOCYTES 1+
[2016-11-30 05:38] LABS: MICROCYTES 1+
[2016-11-30] MEDS ORDERED: BUPIVACAINE/EPI 0.25% 30 ML SDV ONE (07:50)
--- NOTE | 2016-11-30 08:21 | GOP ---
[f rep st] OPERATIVE REPORT DATE OF OPERATION: 11/28/2016 SURGEON: Lars Arreola MD IMMUNOLOGIST: Jb Mann MD, who was requested by me for timely completion of the case. ANESTHESIA: General endotracheal. ANESTHESIOLOGIST: James Cartagena MD. PREOPERATIVE DIAGNOSIS: Worsening sepsis, possible abdominal source. POSTOPERATIVE DIAGNOSIS: Purulent fluid in the abdomen. No perforated viscus identified. PROCEDURE PERFORMED: Exploratory laparotomy with abdominal washout. FINDINGS: Purulent fluid in all quadrants. No perforation identified. Cultures retaken. ESTIMATED BLOOD LOSS: 10 cc. DESCRIPTION OF PROCEDURE: was consented in the ICU. The patient was then transported from the intensive care unit to the operative suite, placed on the OR table in supine position. Once suc cessfully in place, a [employer] time-out was performed ending with all in agreement. The patient's abdomen was then prepped and draped in typical sterile fashion. I entered the abdom en by removing the previous onofre and a previous midline stitch. Once entering the abdomen, purul ent fluid was identified in all 4 quadrants. This was irrigated. There were no adhesions from my p revious surgery identified. I then eviscerated the small bowel out. Prior to doing this, I ran the small bowel from the ligament of Treitz all the way down to the terminal ilium and found no perfora tion identified. Once this was done, I systematically ran the colon from the cecum all the way down to the peritoneal reflection at the rectum and again found no roshni perforation in the colon. Afte r this, I turned my attention toward the right upper quadrant. The gallbladder was flaccid and soft without abnormality. I turned my attention toward the left upper quadrant. The stomach was in the same manner. I identified no perforation within the lesser sac or the anterior abdominal wall. On ce this was done and I systematically reviewed all quadrants again, no perforation was identified. I then used 3 L sterile saline with bacitracin impregnated in it to irrigate the abdomen out, noting clear effluent in the suction canister. The contents were then allowed to go back into the patient 's abdomen. Once this was done, the ABThera device was brought into the operative field, trimmed ap propriately and placed onto the patient's anterior abdominal wall and placed to suction. The patien t was then transferred back to the intensive care unit intubated. DRAINS: ABThera open wound device. COUNTS: All counts were reported as correct x2. /[id number]/MODL
[2016-11-30] MEDS ORDERED: ROCURONIUM 50 MG/5 ML VIAL ONE (08:37)
[2016-11-30] MEDS ORDERED: MIDAZOLAM 2 MG/2 ML VIAL ONE (08:37)
[2016-11-30] MEDS ORDERED: fentaNYL 100 MCG/2 ML INJ ONE (09:33)
[2016-11-30] MEDS ORDERED: fentaNYL 100 MCG/2 ML INJ IVP PRN (09:54)
[2016-11-30] MEDS ORDERED: NALOXONE HCL 0.4 MG/ML INJ IVP PRN (09:54)
--- NOTE | 2016-11-30 10:43 | POSTOPPROG ---
Post Op Note Date of Operation: 11/30/16 Surgeon: Lars Arreola Anesthesiologist: Geronimo Anesthesia: GET(General Endotracheal) Pre-op Diagnosis: Open abdomen Post-op Diagnosis: same Procedure: ex-lap, washout, closure with VAC placement Findings: No source identified, abdomen closed Inf/Abcess present in the surg proc area at time of surgery?: Yes Depth: Organ Space EBL: Minimal Drains: Wound Vac
--- NOTE | 2016-11-30 10:54 | SOAPPROG ---
SOAP Progress Note Assessment/Plan: Assessment/Plan 66yo F s/p ex-lap, washout and closure for unknown likely perforated viscus, R MCA CVA - Took the patient back to the OR again today, some residual pus was in the abdominal cavity but again no discernable source was identified. I washed out the abdomen and closed. given her lack of progress and decline, I agree that the likelihood of a meaningful recovery is minimal. I discussed this with her Fady today. Will discuss moving to comfort care 11/17/16 14:30 11/17/16 14:32 11/17/16 14:33 11/17/16 14:34 11/19/16 08:46 11/19/16 08:49 11/19/16 08:50 11/20/16 15:37 11/21/16 15:11 11/21/16 15:13 11/23/16 09:13 11/24/16 09:34 11/27/16 09:55 11/28/16 09:09 11/30/16 10:51 Subjective: No progress Objective: Vital Signs Temp Pulse Resp BP Pulse Ox 38.2 C 92 26 H 133/76 H 98 11/30/16 07:00 11/30/16 08:00 11/30/16 07:00 11/30/16 07:00 11/30/16 08:00 Microbiology 11/26/16 17:07 Catheter Tip Culture - Final Catheter Tip 11/28/16 20:28 Gram Stain - Final Peritoneal Fluid - Aspirate 11/23/16 12:40 Blood Culture - Final Blood 11/23/16 12:15 Blood Culture - Final Blood Laboratory Results 11/30/16 04:06 11/30/16 04:06 11/29/16 11/30/16 12/01/16 05:59 05:59 05:59 Intake Total 2167 2085 Output Total 2175 1200 Balance -8 885 PT 15.9 SEC (12.0-15.0) H 11/29/16 04:28 INR 1.27 (0.83-1.16) H 11/29/16 04:28 ICD10 Worksheet Patient Problems: Problems Problem Status Onset CVA (cerebral vascular accident) Acute Perforated abdominal viscus Acute Respiratory failure Acute - ICD10 Problem Qualifiers (1) CVA (cerebral vascular accident) Qualifiers: CVA mechanism: C Precerebral and cerebral artery: P Laterality of affected vessel: L (2) Respiratory failure Qualifiers: Chronicity: C Respiratory failure complication: R
[2016-11-30] MEDS: MICAFUNGIN NA 100 MG in NS 100 ML IV SCH (11:20)
[2016-11-30] MEDS: CHLORHEXIDINE GLUCONATE 15 ML UDL PO SCH ×2 (11:20→21:26)
[2016-11-30] MEDS: LANSOPRAZOLE SUSP 30MG/10ML UDSYR (Adult) TUBE SCH (11:25)
[2016-11-30] MEDS: ASPIRIN 325 MG TAB TUBE SCH (11:25)
[2016-11-30] MEDS: FUROSEMIDE 20 MG/2 ML VIAL IVP SCH (11:25)
[2016-11-30] MEDS: AMIODARONE HCL 200 MG TAB TUBE SCH (11:26)
--- NOTE | 2016-11-30 11:26 | GOP ---
[f rep st] OPERATIVE REPORT DATE OF OPERATION: 11/30/2016 SURGEON: Lars Arreola MD CLASSROOM MONITOR: None. ANESTHESIA: General endotracheal. ANESTHESIOLOGIST: Dr. Melton. PREOPERATIVE DIAGNOSIS: Open abdomen. POSTOPERATIVE DIAGNOSIS: Open abdomen. PROCEDURE PERFORMED: Exploratory laparotomy, abdominal washout with closure, and VAC placement. FINDINGS: Some residual purulent fluid was found in the abdominal cavity. Once again, all 4 quadra nts were examined without any identifiable source. SPECIMENS: None. ESTIMATED BLOOD LOSS: 5 cc. DESCRIPTION OF PROCEDURE: The patient's was once again consented in the intensive care unit . She was transported from there to the operative suite and placed on the OR table. After all anes thesia machines were on and functioning, a [employer] time-out was performed. The pr evious VAC was removed, and the abdomen was prepped and draped in typical sterile fashion. I procee ded by systematically evaluating all 4 quadrants again, running the entire small bowel and evaluatin g the entire colon, biliary tract, which was exposed, and upper GI, including the stomach and proxim al duodenal. Once again, I was unable to find any source for the continued abdominal purulence whic h was less than it was last time. After this, I suctioned all the pus out of the abdominal cavity a nd irrigated with 3 L warm normal saline, noting clear effluent at the end. I turned my attention n ow toward closing. I closed the fascia with a running #1 PDS suture, noting excellent reapproximati on. I irrigated the subcutaneous tissue and then covered it with a wound VAC. The patient was then transferred back to the intensive care unit, remained intubated. DRAINS: Wound VAC above fascia. /[id number]/MODL
--- NOTE | 2016-11-30 12:04 | PDINTPN ---
[employer] Progress Note Assessment/Plan: Assessment: 66 F admitted with abdominal pain and hypotension found to have free air and pus on CT. She was taken to surgery 11/16 but a defect was not found despite two surgeons. She was then brought to the ICU with ongoing hypotension and septic shock from peritonitis and has required ongoing support with pressors, ventilatory support, and septic shock protocol. She also has a history of RA and is chronic prednisone/immunosuppression for this, so stress dose steroids were added. S/P stroke this hospitalization probably secondary to atrial fibrillation, with R MCA ischemic lesion, left-sided deficit, edema and obtundation. * Peritonitis and septic shock- she likely had a perforated viscous at least at some point. She is covered with meropenem, micafungin. WBC up, has persistent fevers. ID following. EGD and OR re-exploration have been unable to identify a defect, so likely closed off. Abdomen closed 11/18. Off pressors. On Meropenem, Micafungin. Abnormal drainage from KATHRYN tubes similar to stool: Without definite abscess on CT scan. Went back to surgery 11/28, 11/30: Now close with wound VAC in place. 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 Unresponsive, not waking up, but was starting to follow some simple commands on the Rt earlier this week. Likely due to acute CVA with edema and possible progression or a secondary stroke, as well as toxic metabolic factors from critical illness/peritonitis, meds, etc. Not on any seditives x several days. On low-dose fentanyl postoperatively at 50. Will decrease to 25. I will have Neurology feels that her prognosis for meaningful recovery is quite poor. * Afib with RVR- multifactorial. On amiodarone and p.r.n. diltiazem. Now in NSR , with episodes of AF intermittently. * Acute respiratory failure with hypoxemia- 2/2 septic shock, bibasilar consolidation/pneumonia/atelectasis. Her oxygen requirements are low at 35%. Unable to wean significantly or consider extubation at this time secondary to her mental status, not waking up, surgical issues, etc.. * CORETTA - this has resolved. Hypernatremia remains an issue, improved today. * Elevated liver function studies and bilirubin. Gallbladder sludge with pericystic fluid seen on recent CT scan of the abdomen, but ultrasound looked unremarkable yesterday. No evidence of stones, cholecystitis, or significant sludge. LFTs appear to be a little bit better today. * Volume overload. Remains edematous with significant anasarca. On Lasix diuresis. * Anemia: Hct 26, slightly lower today. No signs active bleeding. Follow * Hyperglycemia: On SSI. * Hypokalemia: On replacement protocols * Hypotension: Resolved for now * Nutrition: On TF. Plan: Continue supportive care and ventilatory support for now. Continue antibiotics per ID. Continue wound VAC per surgery. Continue to hold any sedative medications. Decreased pain medications. Continue aspirin for secondary stroke prevention. Continue antiarrhythmic therapies. Continue to hold tube feedings for now. Continue Lasix, free water. Follow laboratory, blood gas and x-ray. Prognosis remains guarded, especially from a neurologic standpoint. Issues were again discussed at length with the patient's family including her and her son. The patient's son is requesting that we continue to observe the patient from a neurologic standpoint in hopes that she will improve over the next several days. Improvement seems unlikely however it is possible. We also spoke about the possibility of going to comfort care only, extubation, and allowing natural at some point if she does not respond neurologically. All the above was discussed with the patient's family, Surgery, RT, nursing, and the ICU multi disciplinary team. 50 minutes of critical care time was spent directly with the patient. Multiple visits. Subjective: Unresponsive, on the ventilator. Status post re-exploration of abdomen today. No active leak found. Pus remains. Objective: Vital Signs Temp Pulse Resp BP Pulse Ox 37.4 C 94 26 H 144/81 H 98 11/30/16 11:00 11/30/16 11:00 11/30/16 11:00 11/30/16 11:00 11/30/16 11:00 Microbiology 11/28/16 20:28 Gram Stain - Final Peritoneal Fluid - Aspirate 11/26/16 17:07 Catheter Tip Culture - Final Catheter Tip 11/23/16 12:40 Blood Culture - Final Blood 11/23/16 12:15 Blood Culture - Final Blood Laboratory Results 11/30/16 04:06 11/30/16 04:06 11/29/16 11/30/16 12/01/16 05:59 05:59 05:59 Intake Total 2167 2085 Output Total 2175 1200 Balance -8 885 PT 15.9 SEC (12.0-15.0) H 11/29/16 04:28 INR 1.27 (0.83-1.16) H 11/29/16 04:28 Laboratory Tests 11/30/16 11/30/16 04:06 04:24 pCO2 28 L pO2 103 H ABG pH 7.47 H ABG O2 Saturation 97 H O2 Concentration % 35 Actual Respiration Rate 28 SIMV YES Tidal Volume 500 PEEP 5 Pressure Support 10 Sodium 144 Potassium 4.7 Chloride 115 H Carbon Dioxide 23 BUN 51 H Creatinine 1.0 D Glucose 154 H Calcium 7.6 L Total Bilirubin 4.6 H AST 141 H ALT 173 H Albumin 1.9 L CXR: Unchanged. Left lower lobe atelectasis/effusion. Lines and tubes in good position Physical Exam - Physical Exam General Appearance: unresponsive, other (On ventilator) EENT: PERRL/EOMI, ET tube, other Neck: normal inspection Respiratory: lungs clear (Anteriorly), decreased breath sounds (At bases), rales (Few at left base), No rhonchi, No wheezing Cardiac/Chest: regular rate, rhythm Abdomen: other (Postoperative changes, wound VAC in place. Abdomen closed with fascia open) Skin: warm/dry, pallor Extremities: pedal edema Neuro/Psych: cognition abnormalities, other (Remains unresponsive to voice, commands. Grimaces slightly to noxious stimuli the right upper extremity), No no motor/sensory deficits ICD10 Worksheet Patient Problems: Problems Problem Status Onset Perforated abdominal viscus Acute CVA (cerebral vascular accident) Acute Respiratory failure Acute
[2016-11-30] MEDS: fentaNYL/NACL 100 ML IV SCH (12:45)
[2016-11-30] MEDS: ACETAMINOPHEN 650 MG/20.3 ML UDCUP TUBE PRN (14:52)
--- NOTE | 2016-11-30 17:36 | PCMIDPN ---
Assessment/Plan: Assessment: Polymicrobial peritonitis after presumed intestinal rupture. Patient is off pressors but remains intubated. She has also had a coincidental cerebral vascular accident which is severe. We are currently covering with meropenem and micafungin. Given hemodynamic improvement I see no reason to change this treatment at this point. However I think that her neurologic status is more primary concern at present. Status is very guarded. Plan: 1. Continue both meropenem and micafungin. 2. Follow her clinical course. 3. Follow decisions of and family regarding further care. Subjective: Patient remains intubated. She is off sedation but not significantly improved in neurologic status. She does not require pressors anymore. She appears to be tolerating the meropenem and micafungin empirically. Objective: Meropenem # 6 Micafungin # 15 Vital Signs Temp Pulse Resp BP Pulse Ox 38.6 C H 101 H 25 H 106/55 L 98 11/30/16 16:23 11/30/16 16:23 11/30/16 16:23 11/30/16 16:23 11/30/16 16:23 Microbiology 11/28/16 20:28 Gram Stain - Final Peritoneal Fluid - Aspirate 11/26/16 17:07 Catheter Tip Culture - Final Catheter Tip Laboratory Results 11/30/16 04:06 11/30/16 04:06 11/29/16 11/30/16 12/01/16 05:59 05:59 05:59 Intake Total 2167 2085 Output Total 2175 1200 Balance -8 885 - Physical Exam General Appearance: WD/WN, non-toxic, No alert Respiratory: lungs clear, normal breath sounds, No respiratory distress Cardiac/Chest: regular rate, rhythm, No tachycardia ICD10 Worksheet Patient Problems: Problems Problem Status Onset CVA (cerebral vascular accident) Acute Perforated abdominal viscus Acute Respiratory failure Acute
[2016-11-30] MEDS: D5W 1,000 ML IV SCH (18:44)
[2016-12-01] MEDS: HYDROCORTISONE 100 MG/2 ML VIAL IVP SCH ×3 (05:36→22:01)
[2016-12-01] MEDS: INSULIN REGULAR HUMAN 100 UNIT/ML SC SCH ×6 (05:36→22:12)
[2016-12-01] MEDS: MEROPENEM 1 GM in NS 100 ML IV SCH (05:37)
[2016-12-01] MEDS: ASPIRIN 325 MG TAB TUBE SCH (08:13)
[2016-12-01] MEDS: AMIODARONE HCL 200 MG TAB TUBE SCH (08:13)
[2016-12-01] MEDS: LANSOPRAZOLE SUSP 30MG/10ML UDSYR (Adult) TUBE SCH (08:13)
[2016-12-01] MEDS: ENOXAPARIN 40 MG/0.4 ML SYR SC SCH (08:13)
[2016-12-01] MEDS: CHLORHEXIDINE GLUCONATE 15 ML UDL PO SCH ×2 (08:13→20:12)
[2016-12-01] MEDS: FUROSEMIDE 20 MG/2 ML VIAL IVP SCH (08:13)
[2016-12-01] MEDS: MICAFUNGIN NA 100 MG in NS 100 ML IV SCH (08:19)
--- NOTE | 2016-12-01 09:46 | SOAPPROG ---
SOAP Progress Note Assessment/Plan: Assessment/Plan 66yo F s/p ex-lap, washout and closure for unknown likely perforated viscus, R MCA CVA - About the same today. Still no neurologic improvement. WBC remains persistently high despite multiple washouts. and I discussed comfort care this AM, wants to make sure that the son is ok before proceeding but anticipate that we will initiate comfort care today versus tomorrow. 11/17/16 14:30 11/17/16 14:32 11/17/16 14:33 11/17/16 14:34 11/19/16 08:46 11/19/16 08:49 11/19/16 08:50 11/20/16 15:37 11/21/16 15:11 11/21/16 15:13 11/23/16 09:13 11/24/16 09:34 11/27/16 09:55 11/28/16 09:09 11/30/16 10:51 12/01/16 09:44 Subjective: No neurologic improvement Objective: Vital Signs Temp Pulse Resp BP Pulse Ox 38.6 C H 107 H 29 H 93/62 L 98 12/01/16 09:00 12/01/16 09:00 12/01/16 09:00 12/01/16 09:00 12/01/16 09:00 Microbiology 11/28/16 20:28 Gram Stain - Final Peritoneal Fluid - Aspirate Laboratory Results 11/30/16 04:06 11/30/16 04:06 11/30/16 12/01/16 12/02/16 05:59 05:59 05:59 Intake Total 2085 2114.6 Output Total 1200 425 Balance 885 1689.6 PT 15.9 SEC (12.0-15.0) H 11/29/16 04:28 INR 1.27 (0.83-1.16) H 11/29/16 04:28 ICD10 Worksheet Patient Problems: Problems Problem Status Onset CVA (cerebral vascular accident) Acute Perforated abdominal viscus Acute Respiratory failure Acute - ICD10 Problem Qualifiers (1) CVA (cerebral vascular accident) Qualifiers: CVA mechanism: C Precerebral and cerebral artery: P Laterality of affected vessel: L (2) Respiratory failure Qualifiers: Chronicity: C Respiratory failure complication: R
--- NOTE | 2016-12-01 10:46 | PCMIDPN ---
Assessment/Plan: Assessment/Plan: * Septic shock due to peritonitis status post washout x3 without identified perforation with concomitant Streptococcus anginosus/Bacteroides bacteremia: Persistent prominent leukocytosis. Most recent peritoneal culture now showing growth of Pseudomonas aeruginosa which is resistant to meropenem. Will transition to ceftazidime based on susceptibility profile recognizing may have experienced rash with ceftriaxone with addition of metronidazole for anaerobic activity. * Fever: Likely secondary to peritonitis as outlined above. * Leukocytosis: See above discussion. Participated in ICU rounds and discussed with patient's family regarding ongoing care. They are considering transitioning from current level of care to comfort care based on lack of improvement from a neurologic perspective/ persistent comatose state. 12/01/16 10:42 12/01/16 10:46 12/01/16 10:49 Subjective: Patient remains unresponsive. Family considering comfort care given persistent neurologic deficits. Objective: Vital Signs Temp Pulse Resp BP Pulse Ox 38.6 C H 107 H 29 H 93/62 L 98 12/01/16 09:00 12/01/16 09:00 12/01/16 09:00 12/01/16 09:00 12/01/16 09:00 Microbiology 11/28/16 20:28 Gram Stain - Final Peritoneal Fluid - Aspirate Laboratory Results 11/30/16 04:06 11/30/16 04:06 11/30/16 12/01/16 12/02/16 05:59 05:59 05:59 Intake Total 2085 2114.6 Output Total 1200 425 Balance 885 1689.6 Meropenem # 7 Micafungin # 16 Peritoneal cultures with growth of Pseudomonas which is resistant to meropenem, fluoroquinolones and cefepime; susceptible to ceftazidime and aminoglycosides Tm 39 - Physical Exam EENT: ET Tube Skin: rash (Bilateral lower extremities) ICD10 Worksheet Patient Problems: Problems Problem Status Onset CVA (cerebral vascular accident) Acute Perforated abdominal viscus Acute Respiratory failure Acute
--- NOTE | 2016-12-01 14:08 | PDINTPN ---
[employer] Progress Note Assessment/Plan: Assessment: 66 F admitted with abdominal pain and hypotension found to have free air and pus on CT. She was taken to surgery 11/16 but a defect was not found despite two surgeons. She was then brought to the ICU with ongoing hypotension and septic shock from peritonitis and has required ongoing support with pressors, ventilatory support, and septic shock protocol. She also has a history of RA and is chronic prednisone/immunosuppression for this, so stress dose steroids were added. S/P stroke this hospitalization probably secondary to atrial fibrillation, with R MCA ischemic lesion, left-sided deficit, edema and obtundation. * Peritonitis and septic shock- she likely had a perforated viscous at least at some point. She is covered with meropenem, micafungin. WBC up, has persistent fevers. ID following. EGD and OR re-exploration have been unable to identify a defect, so likely closed off. Abdomen closed 11/18. Off pressors. On Meropenem, Micafungin. Abnormal drainage from KATHRYN tubes similar to stool: Without definite abscess on CT scan. Went back to surgery 11/28, 11/30: Now closed with wound VAC in place. 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 Unresponsive, not waking up, but was starting to follow some simple commands on the Rt earlier this week. Likely due to acute CVA with edema and possible progression or a secondary stroke, as well as toxic metabolic factors from critical illness/peritonitis, meds, etc. Not on any seditives x several days. On low-dose fentanyl postoperatively at 50. Will decrease to 25. I will have Neurology feels that her prognosis for meaningful recovery is quite poor. * Afib with RVR- multifactorial. On amiodarone and p.r.n. diltiazem. Now in NSR , with episodes of AF intermittently. * Acute respiratory failure with hypoxemia- 2/2 septic shock, bibasilar consolidation/pneumonia/atelectasis. Her oxygen requirements are low at 35%. Unable to wean significantly or consider extubation at this time secondary to her mental status, not waking up, surgical issues, etc.. * CORETTA - this has resolved. Hypernatremia remains an issue, improved today. * Elevated liver function studies and bilirubin. Gallbladder sludge with pericystic fluid seen on recent CT scan of the abdomen, but ultrasound looked unremarkable yesterday. No evidence of stones, cholecystitis, or significant sludge. LFTs appear to be a little bit better today. * Volume overload. Remains edematous with significant anasarca. On Lasix diuresis. * Anemia: Hct 26, slightly lower today. No signs active bleeding. Follow * Hyperglycemia: On SSI. * Hypokalemia: On replacement protocols * Hypotension: Resolved for now * Nutrition: On TF. Plan: Continue supportive care and ventilatory support for now. Family requests ongoing care today. They indicate they may want to go to comfort measures only tomorrow, extubate, etc. Continue antibiotics per ID: Changes made. Continue wound VAC per surgery. Continue to hold any sedative medications. Continue low-dose fentanyl for comfort. Continue aspirin for secondary stroke prevention. Continue antiarrhythmic therapies. Continue to hold tube feedings. Continue Lasix, free water. Follow laboratory, blood gas and x-ray. Prognosis remains guarded, him likely transition to comfort care alone tomorrow - per the wishes of the family. Further decisions tomorrow. All the above was discussed with the patient's family, Surgery, RT, nursing, and the ICU multi disciplinary team. 40 minutes of critical care time was spent directly with the patient. Subjective: No changes, unresponsive Objective: Vital Signs Temp Pulse Resp BP Pulse Ox 38.5 C H 102 H 28 H 87/53 L 100 12/01/16 13:00 12/01/16 13:00 12/01/16 13:00 12/01/16 13:00 12/01/16 13:00 Microbiology 11/28/16 20:28 Gram Stain - Final Peritoneal Fluid - Aspirate Laboratory Results 11/30/16 04:06 11/30/16 04:06 11/30/16 12/01/16 12/02/16 05:59 05:59 05:59 Intake Total 2085 2114.6 Output Total 1200 425 Balance 885 1689.6 PT 15.9 SEC (12.0-15.0) H 11/29/16 04:28 INR 1.27 (0.83-1.16) H 11/29/16 04:28 Physical Exam - Physical Exam General Appearance: unresponsive, other (No changes), No alert EENT: ET tube, other (Marielena) Neck: normal inspection Respiratory: lungs clear (Anteriorly), decreased breath sounds (At bases) Cardiac/Chest: tachycardia (Sinus) Abdomen: other (Postop changes, wound VAC) Pelvic Exam: other (Domínguez catheter in place: Urine output somewhat lower) Skin: warm/dry, pallor Extremities: pedal edema, swelling (Anasarca) Neuro/Psych: cognition abnormalities (Unresponsive. Grimaces slightly with noxious stimuli to right upper extremity only.), No no motor/sensory deficits ICD10 Worksheet Patient Problems: Problems Problem Status Onset CVA (cerebral vascular accident) Acute Perforated abdominal viscus Acute Respiratory failure Acute
[2016-12-01] MEDS: cefTAZidime PENTAHYDRATE 2 GM in NS 100 ML IV SCH ×2 (14:57→22:00)
[2016-12-01] MEDS: VANCOMYCIN HCL/NORMAL SALINE 250 ML IV SCH (20:10)
[2016-12-02] MEDS: INSULIN REGULAR HUMAN 100 UNIT/ML SC SCH ×3 (02:07→10:24)
[2016-12-02] MEDS: cefTAZidime PENTAHYDRATE 2 GM in NS 100 ML IV SCH (04:59)
[2016-12-02] MEDS: HYDROCORTISONE 100 MG/2 ML VIAL IVP SCH (05:48)
[2016-12-02 08:23] VITALS: BP 103/57; TEMP 100.4
[2016-12-02] MEDS: ENOXAPARIN 40 MG/0.4 ML SYR SC SCH (08:49)
[2016-12-02] MEDS: FUROSEMIDE 20 MG/2 ML VIAL IVP SCH (08:49)
[2016-12-02] MEDS: CHLORHEXIDINE GLUCONATE 15 ML UDL PO SCH (08:49)
[2016-12-02] MEDS: ASPIRIN 325 MG TAB TUBE SCH (08:49)
[2016-12-02] MEDS: VANCOMYCIN HCL/NORMAL SALINE 250 ML IV SCH (08:50)
[2016-12-02] MEDS: AMIODARONE HCL 200 MG TAB TUBE SCH (08:50)
[2016-12-02] MEDS: LANSOPRAZOLE SUSP 30MG/10ML UDSYR (Adult) TUBE SCH (08:50)
[2016-12-02] MEDS: MICAFUNGIN NA 100 MG in NS 100 ML IV SCH (08:52)
[2016-12-02 10:23] VITALS: PULSE 81; RESP 25; O2SAT 100
--- NOTE | 2016-12-02 11:52 | PDINTPN ---
Broaching Machine Operator Progress Note Assessment/Plan: Assessment: Seen and examined. No changes in neurologic status. Remains comatose. Grimaces slightly to stimulation of the right upper extremity with no evidence of cognitive function. The patient's , Fady, is ready to transition to comfort care and extubate. His stepson, daughter, Aspen's long-time friend from [place] are here and all are in agreement with his decision. Her clinical situation neurologic prognosis was again discussed. We will proceed with extubation and comfort care. I do not expect her to pass away quickly, as brainstem function is intact and cardiac and pulmonary systems remain quite functional. 66 F admitted with abdominal pain and hypotension found to have free air and pus on CT. She was taken to surgery 11/16 but a defect was not found despite two surgeons. She was then brought to the ICU with ongoing hypotension and septic shock from peritonitis and has required ongoing support with pressors, ventilatory support, and septic shock protocol. She also has a history of RA and is chronic prednisone/immunosuppression for this, so stress dose steroids were added. S/P stroke this hospitalization probably secondary to atrial fibrillation, with R MCA ischemic lesion, left-sided deficit, edema and obtundation. * Peritonitis and septic shock- she likely had a perforated viscous at least at some point. She is covered with meropenem, micafungin. WBC up, has persistent fevers. ID following. EGD and OR re-exploration have been unable to identify a defect, so likely closed off. Abdomen closed 11/18. Off pressors. On Meropenem, Micafungin. Abnormal drainage from KATHRYN tubes similar to stool: Without definite abscess on CT scan. Went back to surgery 11/28, 11/30: Now closed with wound VAC in place. 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 Unresponsive, not waking up, but was starting to follow some simple commands on the Rt earlier this week. Likely due to acute CVA with edema and possible progression or a secondary stroke, as well as toxic metabolic factors from critical illness/peritonitis, meds, etc. Not on any seditives x several days. On low-dose fentanyl postoperatively at 50. Will decrease to 25. I will have Neurology feels that her prognosis for meaningful recovery is quite poor. * Afib with RVR- multifactorial. On amiodarone and p.r.n. diltiazem. Now in NSR , with episodes of AF intermittently. * Acute respiratory failure with hypoxemia- 2/2 septic shock, bibasilar consolidation/pneumonia/atelectasis. Her oxygen requirements are low at 35%. Unable to wean significantly or consider extubation at this time secondary to her mental status, not waking up, surgical issues, etc.. * CORETTA - this has resolved. Hypernatremia remains an issue, improved today. * Elevated liver function studies and bilirubin. Gallbladder sludge with pericystic fluid seen on recent CT scan of the abdomen, but ultrasound looked unremarkable yesterday. No evidence of stones, cholecystitis, or significant sludge. LFTs appear to be a little bit better today. * Volume overload. Remains edematous with significant anasarca. On Lasix diuresis. * Anemia: Hct 26, slightly lower today. No signs active bleeding. Follow * Hyperglycemia: On SSI. * Hypokalemia: On replacement protocols * Hypotension: Resolved for now * Nutrition: On TF. Plan: Extubate to comfort care today. All the above was discussed with the patient's , family, RT, nursing, and the multi disciplinary team. 40 minutes of critical care time spent directly with the patient and her family. Objective: Vital Signs Temp Pulse Resp BP Pulse Ox 38.0 C 81 25 H 103/57 L 100 12/02/16 08:17 12/02/16 10:00 12/02/16 10:00 12/02/16 10:00 12/02/16 10:00 Microbiology 11/26/16 11:40 Blood Culture - Final Blood 11/28/16 20:28 Gram Stain - Final Peritoneal Fluid - Aspirate Laboratory Results 11/30/16 04:06 11/30/16 04:06 12/01/16 12/02/16 12/03/16 05:59 05:59 05:59 Intake Total 2114.6 2456 Output Total 425 1075 Balance 1689.6 1381 PT 15.9 SEC (12.0-15.0) H 11/29/16 04:28 INR 1.27 (0.83-1.16) H 11/29/16 04:28 ICD10 Worksheet Patient Problems: Problems Problem Status Onset Perforated abdominal viscus Acute CVA (cerebral vascular accident) Acute Respiratory failure Acute
[2016-12-02] MEDS: LORazepam 2 MG/ML INJ IVP PRN ×4 (11:59→17:49)
[2016-12-02] MEDS: GLYCOPYRROLATE 0.2 MG/1 ML VIAL IVP PRN ×2 (12:09→16:23)
--- NOTE | 2016-12-02 13:09 | SOAPPROG ---
SOAP Progress Note Assessment/Plan: Assessment: 66yo F s/p ex-lap, washout and closure for unknown likely perforated viscus, R MCA CVA Family has decided to proceed with comfort care - proceeding with extubation today Appreciate Dr. Otis Mueller's involvement Still intubated when I saw patient this morning Family was not in the room Please to not hesitate to call if needed - Torri pager [phone] Objective: Vital Signs Temp Pulse Resp BP Pulse Ox 38.0 C 81 25 H 103/57 L 100 12/02/16 08:17 12/02/16 10:00 12/02/16 10:00 12/02/16 10:00 12/02/16 10:00 Microbiology 11/26/16 11:40 Blood Culture - Final Blood 11/28/16 20:28 Gram Stain - Final Peritoneal Fluid - Aspirate Laboratory Results 11/30/16 04:06 11/30/16 04:06 12/01/16 12/02/16 12/03/16 05:59 05:59 05:59 Intake Total 2114.6 2456 Output Total 425 1075 Balance 1689.6 1381 PT 15.9 SEC (12.0-15.0) H 11/29/16 04:28 INR 1.27 (0.83-1.16) H 11/29/16 04:28 ICD10 Worksheet Patient Problems: Problems Problem Status Onset CVA (cerebral vascular accident) Acute Perforated abdominal viscus Acute Respiratory failure Acute
--- NOTE | 2016-12-04 09:32 | GDS ---
[f rep st] DISCHARGE SUMMARY DIAGNOSES: 1. Perforated viscus secondary to unknown source. 2. Peritonitis with septic shock. 3. Right middle cerebral artery stroke. 4. Atrial fibrillation with rapid ventricular rate. 5. Acute respiratory failure with hypoxemia. 6. Acute kidney injury. 7. Volume overload. 8. Anemia. 9. Hyperglycemia. 10. Hypokalemia. 11. Hypotension. HOSPITAL COURSE: The patient was evaluated initially in the emergency department [place], and she was i n extremis at the time. Her initial blood pressures were systolic in the 70s, and her entire body w as mottled. She was unable really at that point in time to give a history, but per her , he was there at bedside to give a history. At any rate, she had imaging which showed free air within h er abdomen. She was taken emergently to the operating room for exploration. In the operating room, a significant amount of purulent material was encountered; however, no roshni perforation was identified at that time. Given the fact that no perforation was identified, the pat ient was subsequently taken back to the ICU intubated with an open abdomen. She then went back to t operating room approximately 2 days later for washout where, again, no significant perforation wa s identified. In the meantime, she also had an EGD which was unable to show any perforation in the stomach and proximal duodenum. At her first take back second surgery, the patient was subsequently closed. She was then taken back to the intensive care unit. It was noted that she was failing to wake up from the vent and neglect ing her left side. A CT scan was performed which showed a right MCA stroke. At that time, also she was noted to be in atrial fibrillation with RVR. Neurology was consulted. The patient continued t o make little to no progress over the next week. The drain that was left intraoperatively at her se cond operation became purulent, and she was subsequently taken back to the operating room again for the third time where she was re-explored, and once again, no perforated viscus was identified. Her abdomen was then once again left open, and she was taken back subsequently 2 days later for another washout where, again, no perforation was identified. She was subsequently closed. In the meantime, she failed to make any meaningful recovery, and per her wishes, the family elected to pursue [facility] t care. On the morning of the 6th, these measures were initiated. In concordance with the family wishes, the patient was subsequently extubated, placed on comfort car e, and she later that evening. DISPOSITION: To a local mortuary. /[id number]/MODL
== END 2016-12-02 22:47 | disposition expired | DRG 853 ==
LOC: EDUNIT# → EDBD → FSGY 10:27 → F2N 11:38
PROVIDERS: ADMIT Surgery; ATTEND Surgery
PROC: 02HV33Z Insertion of Infusion Device into Superior Vena Cava, Percutaneous Approach (ICD-10-PCS; 2016-11-16)
PROC: 0BH17EZ Insertion of Endotracheal Airway into Trachea, Via Natural or Artificial Opening (ICD-10-PCS; 2016-11-16)
PROC: 5A1955Z Respiratory Ventilation, Greater than 96 Consecutive Hours (ICD-10-PCS; 2016-11-16)
PROC: 3E1M38Z Irrigation of Peritoneal Cavity using Irrigating Substance, Percutaneous Approach (ICD-10-PCS; principal; 2016-11-16 09:30)
PROC: 0W9G0ZZ Drainage of Peritoneal Cavity, Open Approach (ICD-10-PCS; principal; 2016-11-16 09:30)
PROC: 05P Upper Veins, Removal (ICD-10-PCS; 2016-11-17)
PROC: 02HV33Z Insertion of Infusion Device into Superior Vena Cava, Percutaneous Approach (ICD-10-PCS; 2016-11-17)
PROC: 0DJ08ZZ Inspection of Upper Intestinal Tract, Via Natural or Artificial Opening Endoscopic (ICD-10-PCS; 2016-11-18)
PROC: 0W9G0ZZ Drainage of Peritoneal Cavity, Open Approach (ICD-10-PCS; 2016-11-18 10:15)
PROC: 3E1M38Z Irrigation of Peritoneal Cavity using Irrigating Substance, Percutaneous Approach (ICD-10-PCS; 2016-11-18 10:15)
PROC: 02HV33Z Insertion of Infusion Device into Superior Vena Cava, Percutaneous Approach (ICD-10-PCS; 2016-11-26)
PROC: 3E1M38Z Irrigation of Peritoneal Cavity using Irrigating Substance, Percutaneous Approach (ICD-10-PCS; 2016-11-28)
PROC: 0W9G0ZZ Drainage of Peritoneal Cavity, Open Approach (ICD-10-PCS; 2016-11-28)
PROC: 0W9G0ZZ Drainage of Peritoneal Cavity, Open Approach (ICD-10-PCS; 2016-11-30)
PROC: 3E1M38Z Irrigation of Peritoneal Cavity using Irrigating Substance, Percutaneous Approach (ICD-10-PCS; 2016-11-30)
DX: A41.4 Sepsis due to anaerobes (principal); A40.8 Other streptococcal sepsis; R65.21 Severe sepsis with septic shock; K65.0 Generalized (acute) peritonitis; B96.5 Pseudomonas (aeruginosa) (mallei) (pseudomallei) as the cause of diseases classified elsewhere; K63.1 Perforation of intestine (nontraumatic); J96.01 Acute respiratory failure with hypoxia; I48.0 Paroxysmal atrial fibrillation; I63.411 Cerebral infarction due to embolism of right middle cerebral artery; G81.94 Hemiplegia, unspecified affecting left nondominant side; R40.20 Unspecified coma; N17.9 Acute kidney failure, unspecified; E87.70 Fluid overload, unspecified; E87.6 Hypokalemia; Z51.5 Encounter for palliative care; J45.909 Unspecified asthma, uncomplicated; K21.9 Gastro-esophageal reflux disease without esophagitis; Z98.1 Arthrodesis status; M06.9 Rheumatoid arthritis, unspecified; Z79.52 Long term (current) use of systemic steroids; I25.10 Atherosclerotic heart disease of native coronary artery without angina pectoris; E78.5 Hyperlipidemia, unspecified
CPT/HCPCS: 82947-QW; 86022-90; 96374; C1751; J0171; J0282; J0610; J0696; J0713; J1650; J1815; J2060; J2185; J2248; J2250; J2370; J2704; J3010; J3370; P9041; P9047; Q9967; Q9968